=== PATIENT | male | born 2000 | race Caucasian/White ===

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

== ENCOUNTER 2022-02-25 12:50 | Emergency (ER) | payer OTHER, SELFPAY ==
[2022-02-25 14:50] VITALS: BP 121/71; PULSE 79; RESP 19; TEMP 36.7; O2SAT 98; BMI 27.8
--- NOTE | 2022-02-25 15:07 | EXP.UTC ---
Discharge Plan Disposition Patient Disposition: Home, Self-Care Condition: Good Prescriptions Prescriptions: New ondansetron 4 mg Tablet,Disintegrating 4 mg PO Q8H PRN (Reason: Nausea) Qty: 20 0RF pseudoephedrine HCl [Sudafed 12 Hour] 120 mg tablet extended release 120 mg PO Q12H PRN (Reason: nasal congestion) Qty: 14 0RF Referrals Follow up/Referrals: Chano Kidd MD [Primary Care Provider] - See instructions Activity Restrictions/Add. Instructions Additional Instructions/Restrictions: *Monitor Temp, Over the counter Motrin or Tylenol as directed/as needed Tylenol every 4 hours and Motrin every 6 hours (as long as your family doctor has told you that you can take it) for fever or pain. and straight to ER if unable to lower temp less than 101.0 after medication given *Warm salt water gargles may help to soothe the throat *Throat Lozenges? *Warm fluids like tea with honey may help to soothe the throat? *Sleep elevated *Humidifier/Vaporizer Follow up IMMEDIATELY for new or worsening symptoms or no Noticeable improvement over the next 48-72 hours. 911 for difficulty breathing or swallowing You were tested for today for COVID19 your test result should be back in the next 24-48 hours, you may check your results on the [facility] [facility] Portal Clinical Impressions Clinical Impression: Viral syndrome Stand Alone Forms Stand Alone Forms: Work/School Release Instructions Patient Instructions: DI for Viral Syndrome [place]charge [place] oLve Jimé[place] [facility] [place] General Stated complaint: stomach pain, diarrhea Mode of Arrival: Ambulatory Source of Information: Patient Limitations: No Limitations Time Seen by Provider: 02/25/22 15:07 Description of Symptoms (Recalled from Triage Doc. by RN): PATIENT C/O STOMACH ACHE, DIARRHEA, VOMITING AND BODY ACHES X 2 DAYS HEENT Symptoms (Recalled from RN notes): Yes Resp Symptoms (Recalled from RN notes): No Skin Symptoms (Recalled from RN notes): No MS Symptoms (Recalled from RN notes): No Functional Status (Recalled from RN notes): WNL History of Present Illness Provider Complaint: Patient state that she has been having body aches, chills, for the last 2-3 days and upset stomach, vomiting and diarrhea that started today State that sister was positive for the flu last week and his dad was sick with Rhino State that he is not sure if he may have one of those or not Related Data Previous Rx's Medication Instructions Recorded ondansetron 4 mg disintegrating 4 mg PO Q8H PRN Nausea #20 tabs 02/25/22 tablet pseudoephedrine HCl 120 mg 120 mg PO Q12H PRN nasal 02/25/22 tablet,extended release (Sudafed congestion #14 tabs 12 Hour) Allergies Allergy/AdvReac Type Severity Reaction Status Date / Time Penicillins Allergy Verified 06/27/18 08:10 Worker's Comp Is this a Worker's Comp case?: No PFSH PFSH Surgical History (Updated 02/25/22 @ 14:56 by oSha Terrell, RN) History of appendectomy Social History (Updated 02/25/22 @ 14:56 by Soha Terrell RN) Smoking Status: Unknown if ever smoked alcohol intake: never counseling provided: provider counseling substance use type: denies use current occupational status: student Travel in the last 8 weeks: None household members: family housing: house caffeine: No ROS Obtained: Yes All systems reviewed & no additional complaints except as documented and Yes Systems reviewed as appropriate & no additional complaints except as documented Constitutional Constitutional: Reports system reviewed and no additional complaints, except as documented, Reports as per HPI, Denies fever(s) and Reports headache(s) ENT Ears, Nose, Mouth, and Throat: Reports system reviewed and no additional complaints, except as documented, Reports as per HPI, Reports headache(s), Reports nasal congestion and Reports nasal discharge Cardiovascular Cardiovascular: Reports system reviewed and
[2022-02-25 15:10] LABS: UTC Influenza A Antigen Negative (Negative); UTC Influenza B Antigen Negative (Negative)
[2022-02-25 15:33] VITALS: BP 121/71; PULSE 79; RESP 19; TEMP 36.7; O2SAT 98
[2022-02-25 15:48] LABS: Adenovirus,PCR Not Detected (NotDetected); Bordetella Pertussis Not Detected (NotDetected); Chlamydophila Pneumoniae, PCR Not Detected (NotDetected); Coronavirus 19, PCR Not Detected (NotDetected); Coronavirus 229E Not Detected (NotDetected); Coronavirus NL63 Not Detected (NotDetected); Coronavirus OC43 Not Detected (NotDetected); Coronovirus HKU1,PCR Not Detected (NotDetected); Human Metapneumovirus Not Detected (NotDetected); Influenza A, PCR Not Detected (NotDetected); Influenza AH1, 2009 Not Detected (NotDetected); Influenza AH1, PCR Not Detected (NotDetected); Influenza AH3,PCR Not Detected (NotDetected); Influenza B, PCR Not Detected (NotDetected); Mycoplasma Pneumoniae, PCR Not Detected (NotDetected); Parainfluenza 1, PCR Not Detected (NotDetected); Parainfluenza 2, PCR Not Detected (NotDetected); Parainfluenza 3, PCR Not Detected (NotDetected); Parainfluenza 4, PCR Not Detected (NotDetected); Respiratory Syncytial Virus Not Detected (NotDetected); Rhinovirus/Enterovirus Not Detected (NotDetected)
== END 2022-02-25 15:39 | disposition home or self-care (01) ==
PROVIDERS: Emergency Provider Nurse Practitioner; PCP Family Medicine
DX: R10.9 Unspecified abdominal pain (principal); R19.7 Diarrhea, unspecified; B34.9 Viral infection, unspecified
CPT/HCPCS: 87581; 87632; 87798; 87804; 99212; C9803; G0463; U0003; U0005

== ENCOUNTER 2022-03-14 12:33 | Emergency (ER) | payer OTHER, SELFPAY ==
--- NOTE | 2022-03-14 14:35 | EXP.UTC ---
Discharge Plan Disposition Patient Disposition: Home, Self-Care Condition: Good Prescriptions Prescriptions: New benzonatate [benzonatate] 100 mg capsule 100 mg PO TIDP PRN (Reason: Cough) Qty: 30 0RF ondansetron 4 mg Tablet,Disintegrating 4 mg PO Q8H PRN (Reason: Nausea) Qty: 12 0RF No Action ondansetron 4 mg Tablet,Disintegrating 4 mg PO Q8H PRN (Reason: Nausea) Qty: 20 0RF pseudoephedrine HCl [Sudafed 12 Hour] 120 mg tablet extended release 120 mg PO Q12H PRN (Reason: nasal congestion) Qty: 14 0RF Referrals Follow up/Referrals: Prosper Perez MD [Primary Care Provider] - See instructions Activity Restrictions/Add. Instructions Additional Instructions/Restrictions: Drink plenty of fluids. Take tylenol or ibuprofen for pain or fever. Take the medications as directed. Follow up with your regular doctor. GO TO THE ER FOR ANY WORSENING SYMPTOMS Clinical Impressions Clinical Impression: Viral syndrome, Exposure to COVID-19 virus Stand Alone Forms Stand Alone Forms: Work/School Release Instructions Patient Instructions: Coronavirus Disease 2019, Preventing the Spread of Coronavirus Discharge Instructions Discharge ED Provider: Luis Antonio Basurto [facility] General Stated complaint: covid test Time Seen by Provider: 03/14/22 14:35 History of Present Illness Provider Complaint: He states that for the past 2 days he has had body aches, chills, cough and he has felt bad. Related Data Previous Rx's Medication Instructions Recorded ondansetron 4 mg disintegrating 4 mg PO Q8H PRN Nausea #20 tabs 02/25/22 tablet pseudoephedrine HCl 120 mg 120 mg PO Q12H PRN nasal 02/25/22 tablet,extended release (Sudafed congestion #14 tabs 12 Hour) benzonatate 100 mg capsule 100 mg PO TIDP PRN Cough #30 caps 03/14/22 ondansetron 4 mg disintegrating 4 mg PO Q8H PRN Nausea #12 tabs 03/14/22 tablet Allergies Allergy/AdvReac Type Severity Reaction Status Date / Time Penicillins Allergy Verified 03/14/22 14:47 PFSH PFSH Surgical History History of appendectomy Social History Smoking Status: Unknown if ever smoked alcohol intake: never counseling provided: provider counseling substance use type: denies use current occupational status: student Travel in the last 8 weeks: None household members: family housing: house caffeine: No ROS Obtained: Yes All systems reviewed & no additional complaints except as documented Constitutional Constitutional: Reports chills and Reports fever(s) Eyes Eyes: Denies eye discharge ENT Ears, Nose, Mouth, and Throat: Reports as per HPI Cardiovascular Cardiovascular: Denies chest pain Respiratory Respiratory: Denies chest congestion and Reports cough Gastrointestinal Gastrointestingal: Reports nausea; Denies abdominal pain, constipation, cramping, diarrhea or vomiting Musculoskeletal Musculoskeletal: Denies arthralgias Integumentary/Breasts Skin/Breast: Denies rash Neurologic Neurologic: Denies paresthesias Physical Exam General General appearance: alert and in no apparent distress Head Head exam: atraumatic, normocephalic and normal inspection Eye Eye exam: Present normal appearance, PERRL and EOMI ENT ENT exam: Present normal exam, normal oropharynx, mucous membranes moist, TM's normal bilaterally and normal external ear exam Neck Neck exam: Present normal inspection, full ROM and trachea midline; Absent meningismus or lymphadenopathy Chest Chest inspection: Present normal inspection and symmetric chest wall rise; Absent tenderness Respiratory Respiratory exam: Present normal lung sounds bilaterally; Absent respiratory distress Cardiovascular Cardiovascular exam: Present regular rate and normal rhythm; Absent JVD Abdominal Exam Abdominal exam: Present soft and normal bowel sounds; Absent distention, tenderness or
[2022-03-14 14:54] LABS: UTC Strep Screen (Rapid) Negative (Negative)
[2022-03-14 15:04] VITALS: BP 152/84; PULSE 75; RESP 16; TEMP 36.6; O2SAT 98; BMI 29.5
[2022-03-14 15:47] LABS: UTC Influenza A Antigen Negative (Negative); UTC Influenza B Antigen Negative (Negative)
[2022-03-14 15:59] VITALS: BP 152/84; PULSE 75; RESP 16; TEMP 36.6
== END 2022-03-14 15:59 | disposition home or self-care (01) ==
PROVIDERS: Emergency Provider Nurse Practitioner Family; PCP Family Medicine
DX: B34.9 Viral infection, unspecified (principal)
CPT/HCPCS: 99212; 87804; 87880; C9803; U0003; U0005

== ENCOUNTER 2022-12-13 08:16 | Emergency (ER) | payer OTHER, SELFPAY ==
[2022-12-13 08:17] VITALS: BP 132/75; PULSE 81; RESP 18; TEMP 37.1; O2SAT 98; BMI 30.2
--- NOTE | 2022-12-13 08:42 | EXP.UTC ---
Discharge Plan Disposition Patient Disposition: Home, Self-Care Condition: Good Prescriptions Prescriptions: New benzonatate 100 mg capsule 100 mg PO TID PRN (Reason: cough) Qty: 30 0RF azithromycin [Zithromax Z-Aram] 250 mg tablet See Rx Instructions .ROUTE .COMPLEX 5 Days Qty: 6 0RF Rx Instructions: For 250 mg dose pack: take 500 mg today (day 1), then 250 mg for 4 days (days 2-5) ondansetron 4 mg tablet,disintegrating 4 mg PO Q8H PRN (Reason: nausea and vomiting) Qty: 10 0RF guaifenesin [Mucinex] 600 mg tablet extended release 12hr 1,200 mg PO BID PRN (Reason: cough) Qty: 20 0RF Rx Instructions: Take during the day for your cough No Action ondansetron 4 mg Tablet,Disintegrating 4 mg PO Q8H PRN (Reason: Nausea) Qty: 20 0RF pseudoephedrine HCl [Sudafed 12 Hour] 120 mg tablet extended release 120 mg PO Q12H PRN (Reason: nasal congestion) Qty: 14 0RF benzonatate [benzonatate] 100 mg capsule 100 mg PO TIDP PRN (Reason: Cough) Qty: 30 0RF ondansetron 4 mg Tablet,Disintegrating 4 mg PO Q8H PRN (Reason: Nausea) Qty: 12 0RF Referrals Follow up/Referrals: Prosper Perez MD [Primary Care Provider] - See instructions Activity Restrictions/Add. Instructions Additional Instructions/Restrictions: *Monitor Temp, Over the counter Motrin or Tylenol as directed/as needed Tylenol every 4 hours and Motrin every 6 hours (as long as your family doctor has told you that you can take it) for fever or pain. and straight to ER if unable to lower temp less than 101.0 after medication given *Warm salt water gargles may help to soothe the throat *Throat Lozenges? *Warm fluids like tea with honey may help to soothe the throat? *Sleep elevated *Humidifier/Vaporizer Follow up IMMEDIATELY for new or worsening symptoms or no Noticeable improvement over the next 48-72 hours. 911 for difficulty breathing or swallowing You were tested for today for COVID19 your test result should be back in the next 24-48 hours, you may check your results on the [facility] My Health Portal Clinical Impressions Clinical Impression: URI (upper respiratory infection) Qualifiers: URI type: unspecified URI Qualified Code(s): J06.9 - Acute upper respiratory infection, unspecified Stand Alone Forms Stand Alone Forms: Work/School Release Instructions Patient Instructions: Sore Throat, DI for Sinusitis, DI for COVID-19 (Suspected or Confirmed ) Discharge ED Provider: Love Jiménez [facility] [place] HPI General Stated complaint: covid exposure Mode of Arrival: Ambulatory Source of Information: Patient Limitations: No Limitations Time Seen by Provider: 12/13/22 08:42 Description of Symptoms (Recalled from Triage Doc. by RN): Patient reports no smell or taste, vomiting and cough since Sunday. States he was exposed by his father and needs a COVID test. HEENT Symptoms (Recalled from RN notes): Yes Resp Symptoms (Recalled from RN notes): No Skin Symptoms (Recalled from RN notes): No MS Symptoms (Recalled from RN notes): No Functional Status (Recalled from RN notes): wnl History of Present Illness Provider Complaint: States that he was recently exposed to COVID by his father that was positive States that he wanted to get tested due to he started feeling ill on Sunday not sure if he may have COVID or something else States that he has been having cough, chest congestion and coughing up mucous at times States thats that today he was feeling worse and couldnt smell or taste anything but not sure if that is from COVID or all the head congestion Related Data Previous Rx's Medication Instructions Recorded ondansetron 4 mg disintegrating 4 mg PO Q8H PRN Nausea #20 tabs 02/25/22 tablet pseudoephedrine HCl 120 mg 120 mg PO Q12H PRN nasal 02/25/22 tablet,extended release (Sudafed congestion #14 tabs 12 Hour) benzonatate 100 mg capsule 100 mg PO TIDP PRN Cough #30 caps 03/14/22 ondansetron
[2022-12-13 09:13] VITALS: BP 132/75; PULSE 81; RESP 18; TEMP 37.1; O2SAT 98
== END 2022-12-13 09:14 | disposition home or self-care (01) ==
PROVIDERS: Emergency Provider Nurse Practitioner; PCP Family Medicine
DX: J06.9 Acute upper respiratory infection, unspecified (principal); R05.9 Cough, unspecified
CPT/HCPCS: 99212; 99214; G0463

== ENCOUNTER 2023-01-30 08:38 | Emergency (ER) | payer OTHER, SELFPAY ==
--- NOTE | 2023-01-30 08:35 | ECG_ITS ---
APPROVED REPORT Exam: Resting ECG HR:75 bpm ECG Measurements Heart Rate 75 AXES NH 134 P 24 QRSd 97 QRS 88 QT 350 T 40 QTc 379 Conclusion SINUS RHYTHM NORMAL ECG UNCONFIRMED REPORT Electronically signed by : Javier Urbina MD 01/30/2023 19:23:01
[2023-01-30 08:38] VITALS: BP 132/70; PULSE 81; RESP 20; TEMP 36.8; O2SAT 99; BMI 28.7
[2023-01-30 08:40] VITALS: BMI 28.7
--- NOTE | 2023-01-30 08:41 | XR_ITS ---
FINAL REPORT CLINICAL HISTORY: R sided chest pain, congestion, cough FINDINGS: The heart size is normal. The mediastinum is within normal limits. There is no acute cardiopulmonary process. There is no pleural effusion. There is no pneumothorax. The bony thorax is intact. IMPRESSION: No acute cardiopulmonary process. Reviewed, Interpreted and Dictated by Chente Holguin III, MD Transcribed by Nilesh Senior Authenticated and [facility]
[2023-01-30 08:56] LABS: Basophils # 0.1 K/mm3 (0-0.2); Basophils % 0.8 % (0.1-2.0); Eosinophils # 0.5 K/mm3 (0.0-0.4); Eosinophils % 4.3 % (0.1-12.0); Hematocrit 47.3 % (42.0-52.0); Hemoglobin 16.8 g/dL (14.1-18.0); Lymphocytes # 3.8 K/mm3 (0.7-4.5); Lymphocytes % 30.2 % (10-50); Mean Corpuscular HGB Conc 35.6 g/dL (31.8-35.4); Mean Corpuscular Hemoglobin 31.7 pg (27.0-31.2); Mean Corpuscular Volume 89.1 fl (80-94); Mean Platelet Volume 8.6 fl (7.4-10.4); Monocytes # 1.7 K/mm3 (0.1-1.0); Monocytes % 13.2 % (1.7-9.3); Neutrophils # 6.5 K/mm3 (1.8-7.8); Neutrophils % 51.6 % (37.0-80.0); Platelet Count 208 K/mm3 (142-424); Red Blood Count 5.31 M/mm3 (4.60-6.20); White Blood Count 12.6 K/mm3 (4.5-13.0)
[2023-01-30 09:00] VITALS: BP 132/70; PULSE 65; RESP 13; O2SAT 98
[2023-01-30 09:15] LABS: Chloride 105 mmol/L (98-107); Sodium 140 mmol/L (136-145)
[2023-01-30 09:16] LABS: Potassium 3.7 mmoL/L (3.5-5.1)
[2023-01-30 09:18] LABS: Alanine Aminotransferase 26 U/L (12-78); Alkaline Phosphatase 85 U/L (38-126); Anion Gap 13.7 mEq/L (5-15); Aspartate Amino Transferase 35 U/L (17-59); Bilirubin,Total 0.4 mg/dl (0.2-1.3); Blood Urea Nitrogen 9 mg/dl (9-20); Carbon Dioxide 25 mmol/L (22.0-30.0); Creatinine Clearance Estimated 216 mL/min (50-200); Estimated Glomerular Filt Rate 144 ml/min (>60); GFR (African American) 174 ML/MIN (>60)
[2023-01-30 09:19] LABS: Albumin Level 4.6 g/dl (3.5-5.0); Albumin/Globulin Ratio 1.5 (1.1-1.8); Glucose 92 mg/dl (74-100); Total Protein,Serum 7.6 g/dl (6.3-8.2)
--- NOTE | 2023-01-30 09:25 | HMH.EDGENADL ---
Discharge Plan Disposition Patient Disposition: Home, Self-Care Prescriptions Prescriptions: New benzonatate 100 mg capsule 100 mg PO TID PRN (Reason: cough) 5 Days Qty: 20 0RF ibuprofen 800 mg tablet 800 mg PO TID PRN (Reason: pain) 7 Days Qty: 20 0RF pseudoephedrine HCl 120 mg tablet extended release 120 mg PO BID PRN (Reason: nasal congestion) 7 Days Qty: 14 0RF No Action ondansetron 4 mg Tablet,Disintegrating 4 mg PO Q8H PRN (Reason: Nausea) Qty: 20 0RF pseudoephedrine HCl [Sudafed 12 Hour] 120 mg tablet extended release 120 mg PO Q12H PRN (Reason: nasal congestion) Qty: 14 0RF benzonatate [benzonatate] 100 mg capsule 100 mg PO TIDP PRN (Reason: Cough) Qty: 30 0RF ondansetron 4 mg Tablet,Disintegrating 4 mg PO Q8H PRN (Reason: Nausea) Qty: 12 0RF benzonatate 100 mg capsule 100 mg PO TID PRN (Reason: cough) Qty: 30 0RF azithromycin [Zithromax Z-Aram] 250 mg tablet See Rx Instructions .ROUTE .COMPLEX 5 Days Qty: 6 0RF Rx Instructions: For 250 mg dose pack: take 500 mg today (day 1), then 250 mg for 4 days (days 2-5) ondansetron 4 mg tablet,disintegrating 4 mg PO Q8H PRN (Reason: nausea and vomiting) Qty: 10 0RF guaifenesin [Mucinex] 600 mg tablet extended release 12hr 1,200 mg PO BID PRN (Reason: cough) Qty: 20 0RF Rx Instructions: Take during the day for your cough Referrals Follow up/Referrals: Prosper Perez MD [Primary Care Provider] - See instructions Activity Restrictions/Add. Instructions Additional Instructions/Restrictions: Turn with any worsening symptoms specifically respiratory distress high fevers that will not break with Tylenol or ibuprofen or other concerns. Clinical Impressions Clinical Impression: URI (upper respiratory infection), Chest wall pain Stand Alone Forms Stand Alone Forms: Work/School Release Discharge ED Provider: Jen Moe General Adult HPI General Chief complaint: Chest Pain Stated complaint: Chest Pain Time Seen by Provider: 01/30/23 09:18 Mode of Arrival: EMS Source of Information: Patient Limitations: No Limitations Description of Symptoms (Recalled from ER Triage Doc. by RN): Pt c/o R sided chest pain, chest congestion, body aches, and exertional SOA. Stae\keturah his symtoms began this weekend and he was trying to work this morning but the pain worsened. Denies any productive cough. Denies fever. Denies n/v/d. History of Present Illness HPI narrative: Patient is a 22-year-old male presenting today with several days of nasal congestion rhinorrhea cough body aches now with right lateral chest wall pain. States this hurts when he coughs also when he lifts anything. No fevers or chills no past medical problems from historical standpoint. Related Data Previous Rx's Medication Instructions Recorded ondansetron 4 mg disintegrating 4 mg PO Q8H PRN Nausea #20 tabs 02/25/22 tablet pseudoephedrine HCl 120 mg 120 mg PO Q12H PRN nasal 02/25/22 tablet,extended release (Sudafed congestion #14 tabs 12 Hour) benzonatate 100 mg capsule 100 mg PO TIDP PRN Cough #30 caps 03/14/22 ondansetron 4 mg disintegrating 4 mg PO Q8H PRN Nausea #12 tabs 03/14/22 tablet azithromycin 250 mg tablet See Rx Instructions PO .COMPLEX 5 12/13/22 (Zithromax Z-Aram) days #6 tabs benzonatate 100 mg capsule 100 mg PO TID PRN cough #30 caps 12/13/22 guaifenesin 600 mg tablet, 1,200 mg PO BID PRN cough #20 tabs 12/13/22 extended release 12 hr (Mucinex) ondansetron 4 mg disintegrating 4 mg PO Q8H PRN nausea and 12/13/22 tablet vomiting #10 tabs benzonatate 100 mg capsule 100 mg PO TID PRN cough 5 days #20 01/30/23 caps ibuprofen 800 mg tablet 800 mg PO TID PRN pain 7 days #20 01/30/23 tabs pseudoephedrine HCl 120 mg 120 mg PO BID PRN nasal congestion 01/30/23 tablet,extended release 7 days #14 tabs Allergies Allergy/AdvReac Type Severity Reaction Status Date / Time Penicillins Allergy Verified 03/14/22 14:47
[2023-01-30 09:30] VITALS: BP 118/71; PULSE 83; RESP 12; O2SAT 98
[2023-01-30 09:34] LABS: Troponin I < 0.01 ng/ml (0.00-0.034)
[2023-01-30 10:00] VITALS: BP 132/71; PULSE 76; RESP 14; O2SAT 95
--- NOTE | 2023-01-30 10:05 | PC.NURSE ---
Dr. Moe at [facility] to update pt on results and POC
[2023-01-30 10:17] VITALS: BP 132/71; PULSE 73; RESP 12; TEMP 36.6; O2SAT 98
== END 2023-01-30 10:18 | disposition home or self-care (01) ==
PROVIDERS: Emergency Provider Student in an Organized Health Care Education/Training Program; PCP Family Medicine
DX: R07.9 Chest pain, unspecified (principal); J06.9 Acute upper respiratory infection, unspecified; F17.290 Nicotine dependence, other tobacco product, uncomplicated
CPT/HCPCS: 71045; 80053; 84484; 85025; 93005; 96361; 96374; 99284

== ENCOUNTER → 2023-03-29 23:12 | Outpatient (CLI) | payer OTHER, SELFPAY ==
[2023-03-29 17:58] LABS: Adenovirus,PCR Not Detected (NotDetected); Coronavirus 19, PCR Not Detected (NotDetected); Coronavirus 229E Not Detected (NotDetected); Coronavirus NL63 Not Detected (NotDetected); Coronavirus OC43 Not Detected (NotDetected); Coronovirus HKU1,PCR Not Detected (NotDetected); Human Metapneumovirus Not Detected (NotDetected); Influenza A, PCR Not Detected (NotDetected); Influenza AH1, 2009 Not Detected (NotDetected); Influenza AH1, PCR Not Detected (NotDetected); Influenza AH3,PCR Not Detected (NotDetected); Influenza B, PCR Not Detected (NotDetected); Parainfluenza 1, PCR Not Detected (NotDetected); Parainfluenza 2, PCR Not Detected (NotDetected); Parainfluenza 3, PCR Not Detected (NotDetected); Parainfluenza 4, PCR Not Detected (NotDetected); Respiratory Syncytial Virus Not Detected (NotDetected)
[2023-03-29 20:33] LABS: Rhinovirus/Enterovirus Detected (NotDetected)
== END ==
PROVIDERS: PCP Student in an Organized Health Care Education/Training Program; Visit Provider Student in an Organized Health Care Education/Training Program
DX: R05.9 Cough, unspecified (principal); B34.1 Enterovirus infection, unspecified
CPT/HCPCS: 87632; 87635

== ENCOUNTER 2023-04-02 08:55 | Emergency (ER) | payer OTHER, SELFPAY ==
--- NOTE | 2023-04-02 08:52 | ECG_ITS ---
APPROVED REPORT Exam: Resting ECG HR:81 bpm ECG Measurements Heart Rate 81 AXES ME 130 P 67 QRSd 94 QRS 91 QT 350 T 21 QTc 388 Conclusion SINUS RHYTHM WITH SINUS ARRHYTHMIA POSSIBLE LEFT ATRIAL ENLARGEMENT [-0.1mV P-WAVE IN V1/V2] BORDERLINE RIGHT AXIS DEVIATION [QRS AXIS > 90] NONSPECIFIC T-WAVE ABNORMALITY BORDERLINE ECG UNCONFIRMED REPORT Electronically signed by : Javier Urbina MD 04/02/2023 14:44:36
[2023-04-02 08:56] VITALS: BP 143/88; PULSE 76; RESP 18; TEMP 36.8; O2SAT 97; BMI 32.6
--- NOTE | 2023-04-02 09:01 | XR_ITS ---
FINAL REPORT TECHNIQUE: Chest PA & Lateral CLINICAL HISTORY: cough, shortness of breath, wheezing, R>L ronchi COMPARISON: 01/30/2023 FINDINGS: 2 views of the chest were performed. The heart size is normal. The mediastinum is within normal limits. There is no acute cardiopulmonary process. There are no pleural effusions. There is no pneumothorax. The bony thorax appears intact. IMPRESSION: No acute cardiopulmonary process. Reviewed, Interpreted and Dictated by Gerardo Real MD Transcribed by Yaima Escoto Authenticated and . [facility]
[2023-04-02 09:02] VITALS: PULSE 76
--- NOTE | 2023-04-02 09:04 | HMH.EDGENADL ---
Discharge Plan Disposition Patient Disposition: Home, Self-Care Condition: Good Prescriptions Prescriptions: No Action [id number]-[id number] 2-30-10 mg/5 mL syrup 5 ml PO doxycycline hyclate 100 mg capsule 100 mg PO albuterol sulfate 90 mcg/actuation HFA aerosol inhaler 1 inh inhalation QID Qty: 6.7 2RF prednisone 20 mg tablet 20 mg PO BID Qty: 10 0RF guaifenesin 600 mg tablet extended release 12hr 600 mg PO Q12H PRN (Reason: congestion) Qty: 10 0RF Referrals Follow up/Referrals: Tyrone Perez MD [Primary Care Provider] - See instructions Activity Restrictions/Add. Instructions Additional Instructions/Restrictions: You were evaluated in the emergency department today. Please continue taking your steroids and antibiotics at home. Complete the full courses. Use your inhaler at home every 4 hours. Follow-up with your primary care provider over the next 3 days. Return to the emergency department for new or worsening symptoms Clinical Impressions Clinical Impression: Viral pneumonia, Asthma exacerbation Stand Alone Forms Stand Alone Forms: Work/School Release Instructions Patient Instructions: DI for Asthma -- Adult, DI for Viral Upper Respiratory Infection -- Adult, DI for Atypical Chest Pain Discharge ED Provider: Shahida Benito General Adult HPI General Chief complaint: Chest Pain Stated complaint: Chest Pain Time Seen by Provider: 04/02/23 09:00 Mode of Arrival: Ambulatory Source of Information: Patient Limitations: No Limitations Description of Symptoms (Recalled from ER Triage Doc. by RN): pt reports substernal chest pain and shortnes of breath for 1 week, states he went to the dr and was dx with bronchitis, also reports chills, body aches, and a productive cough, denies fever History of Present Illness HPI narrative: This patient is a 23-year-old male who denies significant past medical history presenting to the emergency department for evaluation with concern for continued cough, chest pain, and shortness of breath that is worsened over the last 2 weeks. He states that he was diagnosed with bronchitis at his PCP and prescribed antibiotics, and then he was seen in clinic and was given a prescription for an inhaler and steroids. On medical record review, he is currently on doxycycline, albuterol inhaler, and prednisone. He states that despite taking these, he continues to have worsening symptoms and has significant dyspnea on exertion. He also has a harsh, dry barking cough. No other concerns noted at this time. Related Data Home Medications Medication Instructions Recorded Confirmed nkxtcllajketyui-[id number]-[id number] 5 ml PO 03/29/23 03/29/23 2 mg-30 mg-10 mg/5 mL oral syrup doxycycline hyclate 100 mg capsule 100 mg PO 03/29/23 03/29/23 Previous Rx's Medication Instructions Recorded albuterol sulfate 90 mcg/actuation 1 inh inhalation QID #6.7 grams 03/29/23 aerosol inhaler guaifenesin 600 mg tablet, 600 mg PO Q12H PRN congestion #10 03/29/23 extended release 12 hr tabs prednisone 20 mg tablet 20 mg PO BID #10 tabs 03/29/23 Allergies Allergy/AdvReac Type Severity Reaction Status Date / Time Penicillins Allergy Verified 04/02/23 09:03 [facility] Disclaimer: The information contained in this section may have been updated after the patient was seen, as this information can be updated by other users. Medical History High ankle sprain of left lower extremity Surgical History Acute appendicitis History of appendectomy Family History Other No significant family history Social History Smoking Status: Current every day smoker tobacco type: smokeless tobacco alcohol intake: never counseling provided: provider counseling
[2023-04-02 09:14] LABS: Chloride 105 mmol/L (98-107); Potassium 3.7 mmoL/L (3.5-5.1); Sodium 141 mmol/L (136-145)
[2023-04-02 09:15] LABS: Basophils % 0.2 % (0.1-2.0); Eosinophils # 0.3 K/mm3 (0.0-0.4); Eosinophils % 1.6 % (0.1-12.0); Hematocrit 46.9 % (42.0-52.0); Hemoglobin 16.4 g/dL (14.1-18.0); Lymphocytes # 4.7 K/mm3 (0.7-4.5); Lymphocytes % 28.8 % (10-50); Mean Corpuscular HGB Conc 35.1 g/dL (31.8-35.4); Mean Corpuscular Hemoglobin 31.1 pg (27.0-31.2); Mean Corpuscular Volume 88.8 fl (80-94); Mean Platelet Volume 7.3 fl (7.4-10.4); Monocytes % 6.1 % (1.7-9.3); Neutrophils # 10.4 K/mm3 (1.8-7.8); Neutrophils % 63.3 % (37.0-80.0); Platelet Count 265 K/mm3 (142-424); Red Blood Count 5.28 M/mm3 (4.60-6.20); Red Cell Distribution Width 13.4 % (11.5-17.5); White Blood Count 16.5 K/mm3 (4.8-10.8)
[2023-04-02 09:16] LABS: Alanine Aminotransferase 20 U/L (12-78); Alkaline Phosphatase 104 U/L (38-126); Aspartate Amino Transferase 25 U/L (17-59); Bilirubin,Total 0.5 mg/dl (0.2-1.3); Blood Urea Nitrogen 14 mg/dl (9-20); Creatinine Clearance Estimated 230 mL/min (50-200); Estimated Glomerular Filt Rate 142 ml/min (>60); GFR (African American) 172 ML/MIN (>60)
[2023-04-02 09:17] LABS: Albumin Level 4.9 g/dl (3.5-5.0); Albumin/Globulin Ratio 1.6 (1.1-1.8); Anion Gap 15.7 mEq/L (5-15); Calcium 8.8 mg/dl (8.4-10.2); Carbon Dioxide 24 mmol/L (22.0-30.0); Globulin 3.1 g/dL (1.3-3.2); Glucose 101 mg/dl (74-100)
[2023-04-02 09:31] LABS: Troponin I < 0.01 ng/ml (0.00-0.034)
[2023-04-02 09:34] LABS: Coronavirus 19, PCR Not Detected (NotDetected); Influenza A, PCR Not Detected (NotDetected); Influenza B, PCR Not Detected (NotDetected); MANUAL DIFFERENTIAL MANUAL DIFFERENTIAL (MANUAL DIFF)
[2023-04-02 09:58] LABS: D-Dimer 0.44 ug/mL (0.0-0.5)
[2023-04-02 10:00] VITALS: BP 143/65; PULSE 933; RESP 10
--- NOTE | 2023-04-02 10:11 | PC.NURSE ---
pt resting in bed. call light within reach. bed in lowest position. updated pt on care. no questions or concerns voiced.
[2023-04-02 10:13] LABS: Eosinophils % 2 % (0-3); Lymphocytes % 30 % (10-50); Monocytes % 4 % (2-9); Neutrophils % 63 % (42-76); Platelet Estimate Normal; RBC Morphology Normal; Total Cells Counted 100
[2023-04-02 10:42] VITALS: BP 120/65; PULSE 85; RESP 17; TEMP 36.7; O2SAT 98
== END 2023-04-02 10:56 | disposition home or self-care (01) ==
PROVIDERS: Emergency Provider Emergency Medicine; PCP Psychiatry & Neurology Sleep Medicine
DX: J12.9 Viral pneumonia, unspecified (principal); J45.901 Unspecified asthma with (acute) exacerbation; R07.9 Chest pain, unspecified; R06.02 Shortness of breath; F17.290 Nicotine dependence, other tobacco product, uncomplicated; I49.9 Cardiac arrhythmia, unspecified
CPT/HCPCS: 71046; 80053; 84484; 85007; 85025; 85378; 87636; 93005; 96361; 96374; 96375; 99285; J0131

== ENCOUNTER 2023-04-17 16:24 | Emergency (ER) | payer OTHER, SELFPAY ==
[2023-04-17 18:10] VITALS: BP 139/74; PULSE 99; RESP 20; TEMP 37.1; O2SAT 99; BMI 32.6
--- NOTE | 2023-04-17 18:17 | EXP.UTC ---
Discharge Plan Disposition Patient Disposition: Home, Self-Care Condition: Good Prescriptions Prescriptions: New cyclobenzaprine 10 mg tablet 10 mg PO TID PRN (Reason: muscle spasm) Qty: 12 0RF ibuprofen [IBU] 800 mg tablet 800 mg PO TIDP PRN (Reason: Moderate Pain) Qty: 20 0RF No Action albuterol sulfate 90 mcg/actuation HFA aerosol inhaler 1 inh inhalation QID Qty: 6.7 2RF fluticasone propionate [Flovent HFA] 44 mcg/actuation HFA aerosol inhaler 1 puff inhalation BID Qty: 10.6 2RF Rx Instructions: administer with spacer Referrals Follow up/Referrals: Prosper Perez MD [Primary Care Provider] - See instructions Activity Restrictions/Add. Instructions Additional Instructions/Restrictions: *Ibuprofen noam 8 hours with meal as needed for pain/inflammation *Not additional anti-inflammatory like motrin, aleve, advil with the above amount of ibuprofen. You can still take Tylenol every 4 hours as needed if you need something else for pain *Ice 20 minutes every 2 hours for the first 48 hours after the initial injury followed by moist heat every 20 minutes 3-4 times a day to affected area *Muscle relaxer every 8 hours as needed for muscle spasms but remember, it WILL cause drowsiness You cannot take it and drive, operate machinery or care for small children. *Keep this area active, no movement leads to more stiffness, However take it easy and avoid heavy lifting pushing or pulling *Follow up with you family doctor if no improvement for further treatment Follow up with Chiropractor may help with your Muscle tension Clinical Impressions Clinical Impression: Torticollis Instructions Patient Instructions: DI for Torticollis, Ibuprofen, Cyclobenzaprine Discharge ED Provider: Love Jiménez [facility] General Stated complaint: neck/left shoulder pain, no accident Time Seen by Provider: 04/17/23 18:34 History of Present Illness Provider Complaint: Patient states that he woke up a couple weeks ago with spasms and pain in the left side of his neck and shoulder and states that felt like his head sideways States that he has pain in his shoulders and the left side of his neck that goes up the left side of his head behind his ear States that today he was still having pain so he came in Denies known injury States that area feels tight and hurts when he moves it Related Data Previous Rx's Medication Instructions Recorded albuterol sulfate 90 mcg/actuation 1 inh inhalation QID #6.7 grams 03/29/23 aerosol inhaler fluticasone propionate 44 1 puff inhalation BID #10.6 grams 04/05/23 mcg/actuation HFA aerosol inhaler (Flovent HFA) cyclobenzaprine 10 mg tablet 10 mg PO TID PRN muscle spasm #12 04/17/23 tabs ibuprofen 800 mg tablet (IBU) 800 mg PO TIDP PRN Moderate Pain 04/17/23 #20 tabs Allergies Allergy/AdvReac Type Severity Reaction Status Date / Time Penicillins Allergy Verified 04/05/23 15:37 [facility] Disclaimer: The information contained in this section may have been updated after the patient was seen, as this information can be updated by other users. Medical History High ankle sprain of left lower extremity Surgical History Acute appendicitis Necrotic, suppurative and with near perforation History of appendectomy Family History Other No significant family history Social History Smoking Status: Current every day smoker tobacco type: smokeless tobacco alcohol intake: never counseling provided: provider counseling substance use type: denies use current occupational status: student Travel in the last 8 weeks: None household members: family housing: house caffeine: No ROS Obtained: Yes All systems reviewed & no additional complaints except as documented and Yes Systems reviewed as appropriate & no additional complaints except as documented Constitutional Constitutional: Reports system reviewed and no additional complaints, except as documented and Reports as per HPI ENT Ears, Nose, Mouth, and Throat: Reports system reviewed and no additional complaints, except as documented and Reports as per HPI Cardiovascular Cardiovascular: Reports system reviewed and no additional complaints, except as documented and Reports as per HPI Respiratory Respiratory: Reports system reviewed and no additional complaints, except as documented and Reports as per HPI Gastrointestinal Gastrointestingal: Reports system reviewed and no additional complaints, except as documented and as per HPI Musculoskeletal Musculoskeletal: Reports system reviewed and no additional complaints, except as documented, Reports as per HPI and Reports other Comments: Pain in left side of his neck and shoulder area after he woke up about 2 wks ago denies falling and denies known injury Physical Exam General General appearance: alert and in no apparent distress ENT ENT exam: Present mucous membranes moist Chest Chest inspection: Present normal inspection and symmetric chest wall rise; Absent tenderness Respiratory Respiratory exam: Present normal lung sounds bilaterally; Absent respiratory distress or wheezes Cardiovascular Cardiovascular exam: Present regular rate, normal rhythm and normal heart sounds Back Exam Back 1 view image: 1. reports pain and tightness with spasm with held slightly tilted, spasm palpated denies injury Neurological Exam Neurological exam: Present alert, oriented X3 and normal gait Medical Decision Making Maxim Inquiry Pt receiving controlled substance: No Maxim was queried for this patient: No
[2023-04-17 18:50] VITALS: BP 139/74; PULSE 99; RESP 20; TEMP 37.1; O2SAT 99
== END 2023-04-17 18:52 | disposition home or self-care (01) ==
PROVIDERS: Emergency Provider Nurse Practitioner; PCP Family Medicine
DX: M43.6 Torticollis (principal); M54.2 Cervicalgia; M62.838 Other muscle spasm; F17.290 Nicotine dependence, other tobacco product, uncomplicated
CPT/HCPCS: 99212; 99214; G0463

== ENCOUNTER 2023-04-21 20:14 | Emergency (ER) | payer OTHER, SELFPAY ==
[2023-04-21] VITALS (7 sets, daily range): BP systolic 131–157; BP diastolic 74–98; PULSE 73–125; RESP 8–18; TEMP 36.8–36.9; O2SAT 97–99; BMI 31.9
[2023-04-21] MEDS: KETOROLAC 30MG/ML VIAL 30 MG IV (21:01)
[2023-04-21] MEDS: ACETAMINOPHEN 500MG TAB 1000 MG PO (21:02)
[2023-04-21] MEDS: METHOCARBAMOL 500MG TABLET 500 MG PO (21:02)
[2023-04-21] MEDS: LACTATED RINGERS 1000ML 1,000 ML 999 ML IV (21:02)
[2023-04-21] MEDS: ONDANSETRON 4MG/2ML VIAL 4 MG IV (21:02)
[2023-04-21 21:06] LABS: Coronavirus 19, PCR Not Detected (NotDetected); Influenza A, PCR Not Detected (NotDetected); Influenza B, PCR Not Detected (NotDetected)
[2023-04-21 21:07] LABS: Basophils # 0.1 K/mm3 (0-0.2); Basophils % 0.7 % (0.1-2.0); Eosinophils # 0.3 K/mm3 (0.0-0.4); Eosinophils % 2.4 % (0.1-12.0); Hematocrit 49.7 % (42.0-52.0); Hemoglobin 17.6 g/dL (14.1-18.0); Lymphocytes # 3.3 K/mm3 (0.7-4.5); Lymphocytes % 28.6 % (10-50); Mean Corpuscular HGB Conc 35.3 g/dL (31.8-35.4); Mean Corpuscular Hemoglobin 31.3 pg (27.0-31.2); Mean Corpuscular Volume 88.6 fl (80-94); Mean Platelet Volume 8.5 fl (7.4-10.4); Monocytes # 0.8 K/mm3 (0.1-1.0); Neutrophils # 7.1 K/mm3 (1.8-7.8); Neutrophils % 61.2 % (37.0-80.0); Platelet Count 242 K/mm3 (142-424); Red Blood Count 5.61 M/mm3 (4.60-6.20); Red Cell Distribution Width 13.8 % (11.5-17.5); White Blood Count 11.5 K/mm3 (4.8-10.8)
[2023-04-21 21:08] LABS: Chloride 106 mmol/L (98-107); Potassium 3.6 mmoL/L (3.5-5.1); Sodium 140 mmol/L (136-145)
[2023-04-21 21:11] LABS: Alanine Aminotransferase 29 U/L (12-78); Albumin Level 4.5 g/dl (3.5-5.0); Albumin/Globulin Ratio 1.5 (1.1-1.8); Alkaline Phosphatase 79 U/L (38-126); Anion Gap 15.6 mEq/L (5-15); Aspartate Amino Transferase 31 U/L (17-59); Bilirubin,Total 0.7 mg/dl (0.2-1.3); Blood Urea Nitrogen 13 mg/dl (9-20); Calcium 8.9 mg/dl (8.4-10.2); Carbon Dioxide 22 mmol/L (22.0-30.0); Creatinine Clearance Estimated 197 mL/min (50-200); Estimated Glomerular Filt Rate 122 ml/min (>60); GFR (African American) 148 ML/MIN (>60); Glucose 127 mg/dl (74-100); Lipase 36 U/L (23-300); Total Protein,Serum 7.5 g/dl (6.3-8.2)
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
[2023-04-21 21:54] LABS: Microscopic, Urine URINE MICROSCOPIC (MICROSCOPIC)
[2023-04-21 22:04] LABS: Appearance,Urine CLOUDY (Clear); Blood, Urine Negative (Negative); Color,Urine DARK YELLOW (Yellow); Glucose,Urine (UA) Negative (Negative); Ketones,Urine TRACE (Negative); Leukocyte Esterase,Urine Negative (Negative); Nitrate,Urine POSITIVE (Negative); PH,Urine 5.5 (5.0-8.5); Protein,Urine 1+ (Negative); Specific Gravity, Urine >= 1.030 (1.005-1.030)
[2023-04-21 22:05] LABS: Bilirubin,Urine 2+ (Negative)
[2023-04-21 22:51] LABS: WBC,Urine Occasional #/hpf (0-3)
[2023-04-21 22:52] LABS: Bacteria,Urine 2+ /lpf; Squamous Epithelial Cell,Urine Occasional #/hpf (0-5)
[2023-04-21] MEDS: levoFLOXacin 750 MG TABLET PO (23:14)
[2023-04-24 22:10] LABS: Neisseria gonorrhoeae, NAA Negative (Negative)
== END 2023-04-21 23:14 | disposition home or self-care (01) ==
PROVIDERS: Emergency Provider Emergency Medicine; PCP Family Medicine
DX: N39.0 Urinary tract infection, site not specified (principal); R11.2 Nausea with vomiting, unspecified; R51.9 Headache, unspecified; R10.13 Epigastric pain; F17.290 Nicotine dependence, other tobacco product, uncomplicated
CPT/HCPCS: 80053; 81001; 83690; 85025; 87086; 87491; 87591; 87636; 96361; 96374; 96375; 99285; J2405

== ENCOUNTER 2023-05-04 10:10 | Outpatient (CLI) | payer OTHER, SELFPAY ==
[2023-05-04 10:29] LABS: Adenovirus F 40/41, stool Not Detected (NotDetected); Astrovirus Not Detected (NotDetected); Campylobacter Not Detected (NotDetected); Clostridium Difficile A/B, PCR Not Detected (NotDetected); Cryptosporidium Not Detected (NotDetected); Cyclospora Cayetanesis Not Detected (NotDetected); Entamoeba histolytica Not Detected (NotDetected); Enteroaggregative E coli Not Detected (NotDetected); Enteropathogenic E coli Not Detected (NotDetected); Enterotoxigenic E coli Not Detected (NotDetected); Giardia lamblia Not Detected (NotDetected); Norovirus Not Detected (NotDetected); Plesimonas Shigalloides, PCR Not Detected (NotDetected); Rotavirus A Not Detected (NotDetected); Salmonella, PCR Not Detected (NotDetected); Shiga-like toxin E coli Not Detected (NotDetected); Shigella Enterovasive E coli Not Detected (NotDetected); Vibrio Cholerae Not Detected (NotDetected); Vibrio, PCR Not Detected (NotDetected); Yersinia Entercolitica, PCR Not Detected (NotDetected)
[2023-05-06 06:38] LABS: Sapovirus Not Detected (NotDetected)
== END 2023-05-04 23:59 ==
LOC: LAB.DROPOF 10:11
PROVIDERS: PCP Family Medicine; Visit Provider Family Medicine
DX: R19.7 Diarrhea, unspecified (principal)
CPT/HCPCS: 87507

== ENCOUNTER 2023-05-22 18:32 | Emergency (ER) | payer OTHER, SELFPAY ==
[2023-05-22 18:34] VITALS: BP 144/82; PULSE 90; RESP 18; TEMP 36.6; O2SAT 98; BMI 29.5
--- NOTE | 2023-05-22 18:54 | PC.NURSE ---
DR HURT AT BEDSIDE
--- NOTE | 2023-05-22 18:58 | HMH.EDGENADL ---
Discharge Plan Disposition Patient Disposition: Home, Self-Care Condition: Good Prescriptions Prescriptions: New pantoprazole 40 mg tablet,delayed release (DR/EC) 40 mg PO DAILY Qty: 30 0RF ondansetron 4 mg tablet,disintegrating 4 mg PO Q8H PRN (Reason: nausea and vomiting) 4 Days Qty: 12 0RF Referrals Follow up/Referrals: Joo Garcia MD [Primary Care Provider] - See instructions Activity Restrictions/Add. Instructions Additional Instructions/Restrictions: You were evaluated in the emergency department today. Please follow-up closely with your primary care provider. family readiness support assistant your prescriptions at the pharmacy and take them as prescribed. Return to the emergency department for new or worsening symptoms. Clinical Impressions Clinical Impression: Vomiting, Gastroenteritis Instructions Patient Instructions: DI for Viral Gastroenteritis -- Adult, DI for Vomiting -- Adult, DI for Gastrointestinal Bleeding Discharge ED Provider: Shahida Benito General Adult HPI General Chief complaint: GI Bleed Stated complaint: vomitting, nauseous Time Seen by Provider: 05/22/23 18:49 Mode of Arrival: Ambulatory Source of Information: Patient Limitations: No Limitations Description of Symptoms (Recalled from ER Triage Doc. by RN): PT C/O COFFEE GROUND EMESIS THAT STARTED ABOUT 1700 TODAY. DENIES PAIN. REPORTS TAKING TYLENOL FREQUENTLY FOR A FEW WEEKS History of Present Illness HPI narrative: This patient is a 23-year-old male presenting to the emergency department for evaluation with concern for nausea and vomiting. He states that his emesis was coffee-ground. He notes that he was walking home from work after eating a peanut butter and jelly with grape jelly when he vomited what looked like black coffee-ground emesis. It cleared afterward. He has vomited about 5 times. He also notes that he has had diarrhea, but no black tarry stools, blood in his stools, or other concerns. He denies any history of GI bleeds, GERD, or heavy NSAID use. No associated abdominal pain. No other concerns noted at this time. Related Data Previous Rx's Medication Instructions Recorded ondansetron 4 mg disintegrating 4 mg PO Q8H PRN nausea and 05/22/23 tablet vomiting 4 days #12 tabs pantoprazole 40 mg tablet,delayed 40 mg PO DAILY #30 tabs 05/22/23 release Allergies Allergy/AdvReac Type Severity Reaction Status Date / Time Penicillins Allergy Verified 04/05/23 15:37 [facility] Disclaimer: The information contained in this section may have been updated after the patient was seen, as this information can be updated by other users. Medical History High ankle sprain of left lower extremity Surgical History Acute appendicitis History of appendectomy Family History Other No significant family history Social History Smoking Status: Current every day smoker tobacco type: smokeless tobacco alcohol intake: never counseling provided: provider counseling substance use type: denies use current occupational status: student Travel in the last 8 weeks: None household members: family housing: house caffeine: No ROS Obtained: Yes All systems reviewed & no additional complaints except as documented Physical Exam General General appearance: alert and in no apparent distress Head Head exam: atraumatic and normocephalic Eye Eye exam: Present normal appearance, PERRL and EOMI ENT ENT exam: Present normal exam, normal oropharynx, mucous membranes moist and normal external ear exam Neck Neck exam: Present normal inspection, full ROM and trachea midline; Absent tenderness Chest Chest inspection: Present normal inspection and symmetric chest wall rise; Absent tenderness Respiratory Respiratory exam: Present normal lung sounds bilaterally; Absent respiratory distress, wheezes, stridor or accessory muscle use Cardiovascular Cardiovascular exam: Present regular rate and normal rhythm Abdominal Exam Abdominal exam: Present soft; Absent distention, tenderness or guarding Extremities Exam Extremities exam: Present normal inspection, full ROM and normal capillary refill; Absent tenderness or edema Back Exam Back exam: Present normal inspection and full ROM; Absent tenderness Neurological Exam Neurological exam: Present alert, oriented X3, CN II-XII intact and normal gait; Absent motor sensory deficit Psychiatric Psychiatric exam: Present normal affect and normal mood Skin Skin exam: Present warm and dry Medical Decision Making Medical Records Medical records reviewed: Yes I reviewed the patient's medical records. Maxim Inquiry Pt receiving controlled substance: No Vital Signs: 05/22/23 18:34 05/22/23 19:00 05/22/23 19:20 Temperature 97.9 F Temperature Source Oral Pulse Rate 78 84 Pulse Rate [Radial] 90 Respiratory Rate 18 18 20 Blood Pressure 131/79 135/74 Blood Pressure [Left Arm] 144/82 H Blood Pressure Mean 96 94 Blood Pressure Mean [Left Arm] 102 Blood Pressure Source Blood Pressure Source [Left Arm] Automatic Cuff Blood Pressure Position [Left Arm] Sitting 02 Sat by Pulse Oximetry 98 99 97 Oxygen Delivery Method Room Air Room Air Room Air 05/22/23 20:49 Temperature 99.1 F Temperature Source Oral Pulse Rate 71 Pulse Rate [Radial] Respiratory Rate 16 Blood Pressure 140/86 Blood Pressure [Left Arm] Blood Pressure Mean Blood Pressure Mean [Left Arm] Blood Pressure Source Automatic Cuff Blood Pressure Source [Left Arm] Blood Pressure Position [Left Arm] 02 Sat by Pulse Oximetry Oxygen Delivery Method Room Air Lab Data Lab results reviewed: Yes I reviewed the patient's lab results. Lab Results 05/22/23 18:45: WBC 11.5 H, RBC 5.19, Hgb 16.0, Hct 46.8, MCV 90.3, MCH 30.9, MCHC 34.2, RDW 13.8, Plt Count 229, MPV 8.0, Neut % (Auto) 45.7, Lymph % (Auto) 41.5, [place] % (Auto) 6.3, Eos % (Auto) 5.8, Baso % (Auto) 0.7, Neut # (Auto) 5.3, Lymph # (Auto) 4.8 H, [place] # (Auto) 0.7, Eos # (Auto) 0.7 H, Baso # (Auto) 0.1, Sodium 139, Potassium 4.2, Chloride 107, Carbon Dioxide 27, Anion Gap 9.2, BUN 15, Creatinine 0.70, Estimated Creat Clear 214, Estimated GFR 142, Est GFR ( Amer) 172, Glucose 96, Calcium 8.9, Total Bilirubin 0.4, AST 26, ALT 24, Alkaline Phosphatase 70, Total Protein 7.1, Albumin 4.5, Globulin 2.6, Albumin/Globulin Ratio 1.7, Lipase 53 05/22/23 18:45 05/22/23 18:45 Orders (Tests/Meds): ED MEDICATIONS Discontinued Medications Generic Name Dose Route Start Last Admin Trade Name Freq PRN Reason Stop Dose Admin Acetaminophen 1,000 mg 05/22/23 18:56 05/22/23 19:55 Acetaminophen 1,000mg/100ml Vial IV 05/22/23 18:57 1,000 mg ONCE ONE Administration Lactated Ringer's 1,000 mls @ 999 mls/hr 05/22/23 18:56 05/22/23 19:56 Lactated Ringer's 1000 Ml Bag IV 05/22/23 19:56 999 mls/hr .Q1H1M ONE Administration Ondansetron HCl 4 mg 05/22/23 18:56 05/22/23 19:57 Ondansetron 4mg/2ml Vial IV 05/22/23 18:57 4 mg ONCE ONE Administration Pantoprazole Sodium 40 mg 05/22/23 18:56 05/22/23 19:56 Pantoprazole 40mg Tablet PO 05/22/23 18:57 40 mg ONCE ONE Administration ORDERS Category Date Time Status Complete Blood Count Auto Diff Stat Lab 05/22/23 18:45 Completed Comprehensive Metabolic Panel Stat Lab 05/22/23 18:45 Completed Lipase Stat Lab 05/22/23 18:45 Completed Medical Decision Narrative: In summary, this patient is a 23-year-old male presenting to the Emergency Department for evaluation of nausea, vomiting, and diarrhea with concern for dark emesis. Differential diagnoses considered include but are not limited to gastroenteritis, upper GI bleed, peptic ulcer disease, colitis, dehydration. Ruling out the most morbid conditions drove assessment. On exam, the patient is well-appearing with benign abdominal exam. No significant abdominal tenderness. Vitals are normal on cardiac telemetry. After dark emesis, his emesis cleared and was no longer dark. No blood in the stools. He denies any heavy NSAID use or history of GERD/GI bleeds. Is likely dark because of what he had eaten, but given cannot exclude potential upper GI bleed, patient was given a bolus of IV fluids as well as pantoprazole and Zofran. Was also given Tylenol. Workup included CBC, CMP, and lipase. On reassessment, the patient is resting comfortably with improved symptoms. He is able to tolerate oral intake without difficulty. Abdominal exam is benign. Vitals are normal on cardiac telemetry. Labs do not demonstrate any acutely concerning abnormalities. BUN is not elevated, which would suggest that a GI bleed is unlikely. He has had no recurrence of emesis while in the emergency department. Given this, feel that he is appropriate for discharge with instructions for supportive management of likely gastroenteritis. He was given prescriptions for Zofran and pantoprazole and instructions for close patient follow-up with his primary care provider for further evaluation and management. Patient was discharged in stable condition after all questions were answered. Critical Care Critical Care Time Critical Care Time: No
[2023-05-22 19:00] VITALS: BP 131/79; PULSE 78; RESP 18; O2SAT 99
[2023-05-22 19:07] LABS: Basophils # 0.1 K/mm3 (0-0.2); Basophils % 0.7 % (0.1-2.0); Chloride 107 mmol/L (98-107); Eosinophils # 0.7 K/mm3 (0.0-0.4); Eosinophils % 5.8 % (0.1-12.0); Hematocrit 46.8 % (42.0-52.0); Lymphocytes # 4.8 K/mm3 (0.7-4.5); Lymphocytes % 41.5 % (10-50); Mean Corpuscular HGB Conc 34.2 g/dL (31.8-35.4); Mean Corpuscular Hemoglobin 30.9 pg (27.0-31.2); Mean Corpuscular Volume 90.3 fl (80-94); Monocytes # 0.7 K/mm3 (0.1-1.0); Monocytes % 6.3 % (1.7-9.3); Neutrophils # 5.3 K/mm3 (1.8-7.8); Neutrophils % 45.7 % (37.0-80.0); Platelet Count 229 K/mm3 (142-424); Potassium 4.2 mmoL/L (3.5-5.1); Red Blood Count 5.19 M/mm3 (4.60-6.20); Red Cell Distribution Width 13.8 % (11.5-17.5); Sodium 139 mmol/L (136-145); White Blood Count 11.5 K/mm3 (4.8-10.8)
[2023-05-22 19:10] LABS: Alanine Aminotransferase 24 U/L (12-78); Albumin Level 4.5 g/dl (3.5-5.0); Albumin/Globulin Ratio 1.7 (1.1-1.8); Alkaline Phosphatase 70 U/L (38-126); Anion Gap 9.2 mEq/L (5-15); Aspartate Amino Transferase 26 U/L (17-59); Bilirubin,Total 0.4 mg/dl (0.2-1.3); Blood Urea Nitrogen 15 mg/dl (9-20); Calcium 8.9 mg/dl (8.4-10.2); Carbon Dioxide 27 mmol/L (22.0-30.0); Creatinine Clearance Estimated 214 mL/min (50-200); Estimated Glomerular Filt Rate 142 ml/min (>60); GFR (African American) 172 ML/MIN (>60); Globulin 2.6 g/dL (1.3-3.2); Glucose 96 mg/dl (74-100); Lipase 53 U/L (23-300); Total Protein,Serum 7.1 g/dl (6.3-8.2)
[2023-05-22 19:20] VITALS: BP 135/74; PULSE 84; RESP 20; O2SAT 97
[2023-05-22] MEDS: ACETAMINOPHEN 1,000MG/100ML VIAL 1000 MG IV (19:55)
[2023-05-22] MEDS: LACTATED RINGERS 1000ML 1,000 ML 999 ML IV (19:56)
[2023-05-22] MEDS: PANTOPRAZOLE 40MG TABLET 40 MG PO (19:56)
[2023-05-22] MEDS: ONDANSETRON 4MG/2ML VIAL 4 MG IV (19:57)
[2023-05-22 20:49] VITALS: BP 140/86; PULSE 71; RESP 16; TEMP 37.3; O2SAT 98
== END 2023-05-22 20:51 | disposition home or self-care (01) ==
PROVIDERS: Emergency Provider Emergency Medicine; PCP Family Medicine
DX: K52.9 Noninfective gastroenteritis and colitis, unspecified (principal); R11.2 Nausea with vomiting, unspecified; F17.290 Nicotine dependence, other tobacco product, uncomplicated
CPT/HCPCS: 80053; 83690; 85025; 96361; 96374; 96375; 99284; J0131; J2405

== ENCOUNTER 2023-05-24 18:06 | Emergency (ER) | payer OTHER, SELFPAY ==
[2023-05-24 18:07] VITALS: BP 165/77; PULSE 97; RESP 18; TEMP 37.1; O2SAT 100; BMI 29.5
--- NOTE | 2023-05-24 18:14 | ECG_ITS ---
APPROVED REPORT Exam: Resting ECG HR:91 bpm ECG Measurements Heart Rate 91 AXES NJ 128 P 45 QRSd 97 QRS 71 QT 337 T -6 QTc 386 Conclusion SINUS RHYTHM WITH SINUS ARRHYTHMIA NONSPECIFIC T-WAVE ABNORMALITY ABNORMAL ECG UNCONFIRMED REPORT Electronically signed by : Javier Urbina MD 05/26/2023 06:34:51
--- NOTE | 2023-05-24 18:16 | XR_ITS ---
PROCEDURE INFORMATION: Exam: XR Chest Exam date and time: 05/24/2023 6:14 PM Age: 23 years old Clinical indication: Sternal or substernal pain; Additional info: Chest pain and hurting all over TECHNIQUE: Imaging protocol: Radiologic exam of the chest. Views: 2 views. COMPARISON: CR XR CHEST 2V 04/02/2023 9:32 AM FINDINGS: Lungs: No evidence of acute pulmonary disease or infiltrates Pleural spaces: No large effusion or pneumothorax. Heart/Mediastinum: No evidence of mediastinal widening or cardiac silhouette enlargement; the mediastinum and heart appear within normal limits for contour and size. Bones/joints: No evidence of acute osseous abnormalities within the visualized portions of the thoracic spine and ribs. Osseous structures appear appropriate for patient age. IMPRESSION: No dense parenchymal consolidation, pleural effusion, or pneumothorax.
[2023-05-24 18:28] LABS: Coronavirus 19, PCR Not Detected (NotDetected); Influenza A, PCR Not Detected (NotDetected); Influenza B, PCR Not Detected (NotDetected)
[2023-05-24 18:32] LABS: Basophils # 0.1 K/mm3 (0-0.2); Basophils % 0.8 % (0.1-2.0); Eosinophils # 0.7 K/mm3 (0.0-0.4); Eosinophils % 5.3 % (0.1-12.0); Hematocrit 45.9 % (42.0-52.0); Hemoglobin 16.1 g/dL (14.1-18.0); Lymphocytes # 5.1 K/mm3 (0.7-4.5); Lymphocytes % 40.4 % (10-50); Mean Corpuscular HGB Conc 35.1 g/dL (31.8-35.4); Mean Corpuscular Hemoglobin 31.3 pg (27.0-31.2); Mean Platelet Volume 7.9 fl (7.4-10.4); Monocytes # 0.7 K/mm3 (0.1-1.0); Monocytes % 5.9 % (1.7-9.3); Neutrophils % 47.6 % (37.0-80.0); Platelet Count 223 K/mm3 (142-424); Red Blood Count 5.15 M/mm3 (4.60-6.20); White Blood Count 12.5 K/mm3 (4.8-10.8)
[2023-05-24 18:34] LABS: Alanine Aminotransferase 22 U/L (12-78); Albumin Level 4.7 g/dl (3.5-5.0); Albumin/Globulin Ratio 1.7 (1.1-1.8); Alkaline Phosphatase 64 U/L (38-126); Anion Gap 13.2 mEq/L (5-15); Aspartate Amino Transferase 26 U/L (17-59); Bilirubin,Total 0.3 mg/dl (0.2-1.3); Blood Urea Nitrogen 14 mg/dl (9-20); Calcium 9.1 mg/dl (8.4-10.2); Carbon Dioxide 26 mmol/L (22.0-30.0); Chloride 106 mmol/L (98-107); Creatinine Clearance Estimated 214 mL/min (50-200); Estimated Glomerular Filt Rate 142 ml/min (>60); GFR (African American) 172 ML/MIN (>60); Globulin 2.7 g/dL (1.3-3.2); Glucose 107 mg/dl (74-100); Potassium 4.2 mmoL/L (3.5-5.1); Sodium 141 mmol/L (136-145); Total Protein,Serum 7.4 g/dl (6.3-8.2)
[2023-05-24 18:48] LABS: Troponin I < 0.01 ng/ml (0.00-0.034)
--- NOTE | 2023-05-24 18:49 | HMH.EDGENADL ---
Discharge Plan Disposition Patient Disposition: Home, Self-Care Prescriptions Prescriptions: No Action pantoprazole 40 mg tablet,delayed release (DR/EC) 40 mg PO DAILY Qty: 30 0RF ondansetron 4 mg tablet,disintegrating 4 mg PO Q8H PRN (Reason: nausea and vomiting) 4 Days Qty: 12 0RF Referrals Follow up/Referrals: Joo Garcia MD [Primary Care Provider] - See instructions Clinical Impressions Clinical Impression: Viral syndrome Discharge ED Provider: Jen Moe General Adult HPI General Chief complaint: PAIN Stated complaint: abd pain Time Seen by Provider: 05/24/23 18:38 Mode of Arrival: Ambulatory Source of Information: Patient Limitations: No Limitations Description of Symptoms (Recalled from ER Triage Doc. by RN): pt presents to ED c/o chest pain x 3 days and hurting all over. pt also states he has had a cough and congestion. denies known fever. pt unable to describe chest pain. pt states he was seen and evaluated in ED a couple nights ago. History of Present Illness HPI narrative: Patient is a 23-year-old male presents today with multiple complaints. States that he is here few days ago with some coffee-ground emesis though symptoms have significantly improved since that time. He states he is here today primarily for pain all over his entire body including on his right side of his chest abdomen legs back. Took some Advil prior to arrival without any significant improvement. Denies any fever. No exertional chest pain or shortness of breath diaphoresis etc. States he also saw something pulsing in his abdomen started googling this online was concerned he had a ruptured AAA. Related Data Previous Rx's Medication Instructions Recorded ondansetron 4 mg disintegrating 4 mg PO Q8H PRN nausea and 05/22/23 tablet vomiting 4 days #12 tabs pantoprazole 40 mg tablet,delayed 40 mg PO DAILY #30 tabs 05/22/23 release Allergies Allergy/AdvReac Type Severity Reaction Status Date / Time Penicillins Allergy Verified 04/05/23 15:37 [facility] Disclaimer: The information contained in this section may have been updated after the patient was seen, as this information can be updated by other users. Medical History High ankle sprain of left lower extremity Surgical History Acute appendicitis History of appendectomy Family History Other No significant family history Social History Smoking Status: Current every day smoker tobacco type: smokeless tobacco alcohol intake: never counseling provided: provider counseling substance use type: denies use current occupational status: student Travel in the last 8 weeks: None household members: family housing: house caffeine: No ROS Obtained: Yes All systems reviewed & no additional complaints except as documented Physical Exam General General appearance: alert Chest Chest inspection: Present normal inspection and symmetric chest wall rise Respiratory Respiratory exam: Present normal lung sounds bilaterally; Absent respiratory distress Cardiovascular Cardiovascular exam: Present regular rate and normal rhythm Abdominal Exam Abdominal exam: Present soft and distention; Absent tenderness Neurological Exam Neurological exam: Present alert and oriented X3 Medical Decision Making Maxim Inquiry Pt receiving controlled substance: No Vital Signs: 05/24/23 18:07 Temperature 98.8 F Temperature Source Oral Pulse Rate [Right Radial] 97 H Respiratory Rate 18 Blood Pressure [Right Arm] 165/77 H Blood Pressure Mean [Right Arm] 106 Blood Pressure Source [Right Arm] Automatic Cuff Blood Pressure Position [Right Arm] Sitting 02 Sat by Pulse Oximetry 100 Oxygen Delivery Method Room Air Lab Data Lab results reviewed: Yes I reviewed the patient's lab results. Lab Results 05/24/23 18:18: WBC 12.5 H, RBC 5.15, Hgb 16.1, Hct 45.9, MCV 89.0, MCH 31.3 H, MCHC 35.1, RDW 14.0, Plt Count 223, MPV 7.9, Neut % (Auto) 47.6, Lymph % (Auto) 40.4, [place] % (Auto) 5.9, Eos % (Auto) 5.3, Baso % (Auto) 0.8, Neut # (Auto) 6.0, Lymph # (Auto) 5.1 H, [place] # (Auto) 0.7, Eos # (Auto) 0.7 H, Baso # (Auto) 0.1, Sodium 141, Potassium 4.2, Chloride 106, Carbon Dioxide 26, Anion Gap 13.2, BUN 14, Creatinine 0.70, Estimated Creat Clear 214, Estimated GFR 142, Est GFR ( Amer) 172, Glucose 107 H, Calcium 9.1, Total Bilirubin 0.3, AST 26, ALT 22, Alkaline Phosphatase 64, Troponin I < 0.01, Total Protein 7.4, Albumin 4.7, Globulin 2.7, Albumin/Globulin Ratio 1.7, SARS-CoV-2 (PCR) Not detected, Influenza A Untype (PCR) Not detected, Influenza Type B (PCR) Not detected 05/24/23 18:18 05/24/23 18:18 Orders (Tests/Meds): ED MEDICATIONS Generic Name Dose Route Start Last Admin Trade Name Freq PRN Reason Stop Dose Admin Sodium Chloride 10 ml 05/24/23 18:22 Sodium Chloride 0.9% 10ml Flush Syringe IV 06/23/23 18:21 NEEDED PRN Maintain IV Site Discontinued Medications Generic Name Dose Route Start Last Admin Trade Name Freq PRN Reason Stop Dose Admin Acetaminophen 1,000 mg 05/24/23 18:48 Acetaminophen 500mg Tab PO 05/24/23 18:49 ONCE ONE Ketorolac Tromethamine 15 mg 05/24/23 18:48 Ketorolac 30mg/Ml Vial IV 05/24/23 18:49 ONCE ONE ORDERS Category Date Time Status XR chest 2V Stat Exams 05/24/23 18:16 Completed Complete Blood Count Auto Diff Stat Lab 05/24/23 18:18 Completed Comprehensive Metabolic Panel Stat Lab 05/24/23 18:18 Completed Rapid PCR Covid and Flu A/B Stat Lab 05/24/23 18:18 Completed Troponin I Q3H Lab 05/24/23 21:30 Ordered Troponin I Q3H Lab 05/25/23 00:30 Ordered Troponin I Stat Lab 05/24/23 18:18 Completed ECG initial [place] Routine Y 05/24/23 18:14 Completed Medical Decision Narrative: Patient is a well-appearing 23-year-old male with a benign exam. Symptoms are consistent with a viral syndrome today. Specifically am not concerned about a AAA or rupture AAA. He has pain all over his entire body will give him some Toradol and Tylenol. Swab for COVID and flu. Chest x-ray performed to person interpreted shows no acute cardiopulmonary emergency labs are unremarkable. He is stable for outpatient management. COVID and flu are negative. Labs unremarkable troponin undetectably low. EKG performed at person interpreted shows ventricular rate of 91 no acute ischemic changes noted there is an S1Q3T3 which is nonspecific and some inferior T wave inversions. But no ST segment elevations or depressions. He has been advised to follow-up with primary care doctor outpatient as needed. Patient very stable upon being discharged Critical Care Critical Care Time Critical Care Time: No
[2023-05-24] MEDS: ACETAMINOPHEN 500MG TAB 1000 MG PO (19:02)
[2023-05-24] MEDS: KETOROLAC 30MG/ML VIAL 15 MG IV (19:02)
[2023-05-24 19:07] VITALS: BP 146/86; PULSE 90; RESP 20; TEMP 36.7; O2SAT 97
== END 2023-05-24 19:08 | disposition home or self-care (01) ==
PROVIDERS: Emergency Provider Student in an Organized Health Care Education/Training Program; PCP Family Medicine
DX: R07.9 Chest pain, unspecified (principal); R10.9 Unspecified abdominal pain; R05.9 Cough, unspecified; F17.290 Nicotine dependence, other tobacco product, uncomplicated
CPT/HCPCS: 71046; 80053; 84484; 85025; 87636; 93005; 96374; 99285

== ENCOUNTER 2023-05-27 20:51 | Emergency (ER) | payer OTHER, SELFPAY ==
[2023-05-27 21:00] VITALS: BP 158/88; PULSE 104; RESP 22; TEMP 36.9; O2SAT 99; BMI 29.5
--- NOTE | 2023-05-27 21:14 | XR_ITS ---
PROCEDURE INFORMATION: Exam: XR Chest Exam date and time: 05/27/2023 9:31 PM Age: 23 years old Clinical indication: Pain; Other: Epigastric; Additional info: Cp TECHNIQUE: Imaging protocol: Radiologic exam of the chest. Views: 1 view. COMPARISON: CR XR CHEST 2V 05/24/2023 6:14 PM FINDINGS: Lungs: Unremarkable. No consolidation. Pleural spaces: Unremarkable. No pleural effusion. No pneumothorax. Heart/Mediastinum: Unremarkable. No cardiomegaly. Bones/joints: Unremarkable. IMPRESSION: No acute cardiopulmonary disease.
--- NOTE | 2023-05-27 21:14 | CT_ITS ---
PROCEDURE INFORMATION: Exam: CT Abdomen And Pelvis With Contrast Exam date and time: 05/27/2023 10:23 PM Age: 23 years old Clinical indication: Abdominal pain; Epigastric; Prior surgery; Surgery date: 6+ months; Surgery type: Appendectomy; Additional info: Chronic severe epigastric pain TECHNIQUE: Imaging protocol: Computed tomography of the abdomen and pelvis with contrast. Radiation optimization: All CT scans at this facility use at least one of these dose optimization techniques: automated exposure control; mA and/or kV adjustment per patient size (includes targeted exams where dose is matched to clinical indication); or iterative reconstruction. Contrast material: ISOVUE; Contrast volume: 75 ml; Contrast route: IV; [facility] pelvis wo con 05/03/2017 11:01 PM FINDINGS: Liver: Normal. No mass. Gallbladder and bile ducts: Normal. No calcified stones. No ductal dilation. Pancreas: Normal. No ductal dilation. Spleen: Normal. No splenomegaly. Adrenal glands: Normal. No mass. Kidneys and ureters: Normal. No hydronephrosis. Stomach and bowel: Unremarkable. No obstruction. No mucosal thickening. Appendix: Not visualized status post cholecystectomy. Intraperitoneal space: Unremarkable. No free air. No significant fluid collection. Vasculature: Unremarkable. No abdominal aortic aneurysm. Lymph nodes: Unremarkable. No enlarged lymph nodes. Reactive mesenteric/retroperitoneal shotty lymph nodes. Urinary bladder: Unremarkable as visualized. Reproductive: Unremarkable as visualized. Bones/joints: Unremarkable. No acute fracture. Soft tissues: Unremarkable. IMPRESSION: 1. No acute findings. 2. Reactive mesenteric/retroperitoneal lymph nodes.
--- NOTE | 2023-05-27 21:16 | HMH.EDGENADL ---
Discharge Plan Disposition Patient Disposition: Home, Self-Care Prescriptions Prescriptions: New ondansetron 4 mg tablet,disintegrating 4 mg PO Q8H PRN (Reason: nausea and vomiting) 4 Days Qty: 12 0RF No Action pantoprazole 40 mg tablet,delayed release (DR/EC) 40 mg PO DAILY Qty: 30 0RF ondansetron 4 mg tablet,disintegrating 4 mg PO Q8H PRN (Reason: nausea and vomiting) 4 Days Qty: 12 0RF Referrals Follow up/Referrals: Joo Garcia MD [Primary Care Provider] - See instructions Activity Restrictions/Add. Instructions Additional Instructions/Restrictions: At this time it was felt you are safe to be discharged home. If new or worsening symptoms please do not hesitate to return the emergency department. Clinical Impressions Clinical Impression: Chest pain, Mesenteric lymphadenopathy Abdominal pain Qualifiers: Abdominal location: upper abdomen, unspecified Qualified Code(s): R10.10 - Upper abdominal pain, unspecified Instructions Patient Instructions: DI for Acute Abdominal Pain Discharge ED Provider: Aston Llamas General Adult HPI <Aston Llamas MD - Last Filed: 05/27/23 22:53> General Chief complaint: Abdominal Pain Stated complaint: Abdominal Pain Time Seen by Provider: 05/27/23 21:04 Mode of Arrival: Family Vehicle Source of Information: Patient Limitations: No Limitations Description of Symptoms (Recalled from ER Triage Doc. by RN): 23 yo male presents with CC of mid epigastric abd pain that he describes as sharp and stabbing. Onset 2 hours ago this time. Patient further states he has had intermittent ongoing issues with his abdomen for the last 3 weeks. Accompanied by n/v and constipation. Has been seen in this ER and at PCP multiple times. History of Present Illness HPI narrative: Patient is a 23-year-old male with no pertinent past medical history presents emergency department for evaluation of abdominal pain and chest pain. Patient has intermittent abdominal pain has been evaluated multiple times by PCP and emergency department with no definitive etiology. Few hours prior to arrival patient has epigastric pain, nonbloody vomiting that is moderate to severe intensity causing her to present here for continued evaluation. Patient also feels intermittent racing of his heart as well as intermittent chest pain throughout the course causing him to present here for continued evaluation. Last marijuana use 3 weeks ago. Related Data Previous Rx's Medication Instructions Recorded ondansetron 4 mg disintegrating 4 mg PO Q8H PRN nausea and 05/22/23 tablet vomiting 4 days #12 tabs pantoprazole 40 mg tablet,delayed 40 mg PO DAILY #30 tabs 05/22/23 release ondansetron 4 mg disintegrating 4 mg PO Q8H PRN nausea and 05/27/23 tablet vomiting 4 days #12 tabs Allergies Allergy/AdvReac Type Severity Reaction Status Date / Time Penicillins Allergy Verified 04/05/23 15:37 PFSH <Aston Llamas MD - Last Filed: 05/27/23 22:53> PFS Disclaimer: The information contained in this section may have been updated after the patient was seen, as this information can be updated by other users. Medical History High ankle sprain of left lower extremity Surgical History Acute appendicitis History of appendectomy Family History Other No significant family history Social History Smoking Status: Unknown if ever smoked alcohol intake: never counseling provided: provider counseling substance use type: denies use current occupational status: student Travel in the last 8 weeks: None household members: family housing: house caffeine: No <Aston Llamas MD - Last Filed: 05/27/23 22:53> ROS Obtained: Yes Systems reviewed as appropriate & no additional complaints except as documented Physical Exam <Aston Llamas MD - Last Filed: 05/27/23 22:53> General General appearance: alert and in no apparent distress Head Head exam: atraumatic and normocephalic Eye Eye exam: Present PERRL ENT ENT exam: Present mucous membranes moist Neck Neck exam: Present normal inspection Chest Chest inspection: Present normal inspection and symmetric chest wall rise Respiratory Respiratory exam: Present normal lung sounds bilaterally; Absent respiratory distress Cardiovascular Cardiovascular exam: Present normal rhythm and tachycardia Abdominal Exam Abdominal exam: Present soft and tenderness (Mild, epigastric) Extremities Exam Extremities exam: Present normal inspection Neurological Exam Neurological exam: Present alert Psychiatric Psychiatric exam: Present normal affect Skin Skin exam: Present warm and dry Medical Decision Making <Aston Llamas MD - Last Filed: 05/27/23 22:53> Maxim Inquiry Pt receiving controlled substance: No Vital Signs: 05/27/23 21:00 05/27/23 21:30 05/27/23 23:59 Temperature 98.5 F 98.2 F Temperature Source Oral Oral Pulse Rate 84 67 Pulse Rate [Right Brachial] 104 H Respiratory Rate 22 19 Blood Pressure 131/69 125/69 Blood Pressure [Right Arm] 158/88 H Blood Pressure Mean [Right Arm] 111 Blood Pressure Source Automatic Cuff Blood Pressure Source [Right Arm] Automatic Cuff Blood Pressure Position Sitting Blood Pressure Position [Right Arm] Sitting 02 Sat by Pulse Oximetry 99 99 Oxygen Delivery Method Room Air Room Air Lab Data Lab Results 05/27/23 21:04: WBC 17.1 H, RBC 5.48, Hgb 17.2, Hct 49.5, MCV 90.3, MCH 31.4 H, MCHC 34.8, RDW 13.9, Plt Count 221, MPV 8.0, Neut % (Auto) 55.5, Lymph % (Auto) 34.4, [place] % (Auto) 4.8, Eos % (Auto) 4.7, Baso % (Auto) 0.6, Neut # (Auto) 9.5 H, Lymph # (Auto) 5.9 H, [place] # (Auto) 0.8, Eos # (Auto) 0.8 H, Baso # (Auto) 0.1, Total Counted 100, Neutrophils % (Manual) 60, Lymphocytes % (Manual) 33, Atypical Lymphs % 5.0, Monocytes % (Manual) 1 L, Eosinophils % (Manual) 1, Platelet Estimate Normal, RBC Morphology Normal, D-Dimer < 0.25, Sodium 139, Potassium 3.6, Chloride 106, Carbon Dioxide 24, Anion Gap 12.6, BUN 11, Creatinine 0.70, Estimated Creat Clear 214, Estimated GFR 142, Est GFR ( Amer) 172, Glucose 94, Lactate 1.0, Calcium 9.3, Magnesium 1.8, Total Bilirubin 0.5, AST 28, ALT 23, Alkaline Phosphatase 82, Troponin I < 0.01, Total Protein 7.6, Albumin 4.8, Globulin 2.8, Albumin/Globulin Ratio 1.7, Lipase 49 05/27/23 21:04 05/27/23 21:04 Orders (Tests/Meds): ED MEDICATIONS Discontinued Medications Generic Name Dose Route Start Last Admin Trade Name Liset PRN Reason Stop Dose Admin Acetaminophen 1,000 mg 05/27/23 21:14 05/27/23 21:24 Acetaminophen 1,000mg/100ml Vial IV 05/27/23 21:15 1,000 mg ONCE ONE Administration Belladonna Alkaloids 60 ml 05/27/23 21:14 05/27/23 21:24 Belladonna Alkaloids 60 Ml Ml PO 05/27/23 21:15 60 ml ONCE ONE Administration Lactated Ringer's 1,000 mls @ 999 mls/hr 05/27/23 21:14 05/27/23 21:24 Lactated Ringer's 1000 Ml Bag IV 05/27/23 22:14 999 mls/hr .Q1H1M ONE Administration Iopamidol 75 ml 05/27/23 22:38 05/27/23 22:39 Iopamidol-370 (76%);100ml Bottle IV 05/27/23 22:39 75 ml ONCE ONE Administration Morphine Sulfate 4 mg 05/27/23 21:14 05/27/23 21:24 Morphine 4mg/Ml Syringe IV 05/27/23 21:15 4 mg ONCE ONE Administration Ondansetron HCl 4 mg 05/27/23 21:14 05/27/23 21:24 Ondansetron 4mg/2ml Vial IV 05/27/23 21:15 4 mg ONCE ONE Administration Sodium Chloride 10 ml 05/27/23 21:07 Sodium Chloride 0.9% 10ml Flush Syringe IV 06/26/23 21:06 NEEDED PRN Maintain IV Site Sodium Chloride 10 ml 05/27/23 22:38 05/27/23 22:39 Sodium Chloride 0.9% 10ml Syr (Rad Only) IV 05/27/23 22:39 10 ml ONCE ONE Administration ORDERS Category Date Time Status CT abdomen pelvis w con Stat Cat Scan 05/27/23 21:14 Completed CXR --portable [XR chest portable] Stat Exams 05/27/23 21:14 Taken Complete Blood Count Auto Diff Stat Lab 05/27/23 21:04 Completed Comprehensive Metabolic Panel Stat Lab 05/27/23 21:04 Completed D-Dimer Stat Lab 05/27/23 21:04 Completed Lactic Acid Stat Lab 05/27/23 21:04 Completed Lipase Stat Lab 05/27/23 21:04 Completed Magnesium Stat Lab 05/27/23 21:04 Completed Troponin I Stat Lab 05/27/23 21:04 Completed EKG Request [ECG Request] Stat Y 05/27/23 21:14 Ordered ECG Data Tracing #1: Independently turbid by me, rate is 73, rhythm is regular, no ST elevation in anatomical contiguous leads, QTc 384. Medical Decision Narrative: In summary patient is a 23-year-old male past medical history described above who presents emergency department for evaluation of multiple complaints including chest pain and subacute abdominal pain. Patient is hemodynamically stable nontoxic-appearing upon arrival, afebrile, slight tachycardia. Differential diagnoses respect to chest pain includes noncardiac chest pain, ACS, pulmonary embolism, among others. Differential diagnoses respect abdominal pain includes pancreatitis, intra-abdominal mass, among others. Workup will be conducted with hematologic labs, CT abdomen pelvis IV contrast, chest x-ray, EKG, troponin, D-dimer. Initial inventions include multimodal pain control, GI cocktail, Zofran, crystalloid bolus. Initial workup reviewed by me, patient has nonspecific leukocytosis, remainder of hematologic labs are nonactionable. D-dimer below detectable limit effectively ruling out pulmonary embolism as cause of his chest pain, initial troponin undetectably low. Upon repeat evaluation patient had resolving tachycardia. CT abdomen pelvis was conducted and pending at time of transfer of care to the oncoming physician, Dr. Thakur. <Toi Thakur MD - Last Filed: 05/28/23 00:44> Vital Signs: 05/27/23 21:00 05/27/23 21:30 05/27/23 23:59 Temperature 98.5 F 98.2 F Temperature Source Oral Oral Pulse Rate 84 67 Pulse Rate [Right Brachial] 104 H Respiratory Rate 22 19 Blood Pressure 131/69 125/69 Blood Pressure [Right Arm] 158/88 H Blood Pressure Mean [Right Arm] 111 Blood Pressure Source Automatic Cuff Blood Pressure Source [Right Arm] Automatic Cuff Blood Pressure Position Sitting Blood Pressure Position [Right Arm] Sitting 02 Sat by Pulse Oximetry 99 99 Oxygen Delivery Method Room Air Room Air Lab Data Lab Results 05/27/23 21:04: WBC 17.1 H, RBC 5.48, Hgb 17.2, Hct 49.5, MCV 90.3, MCH 31.4 H, MCHC 34.8, RDW 13.9, Plt Count 221, MPV 8.0, Neut % (Auto) 55.5, Lymph % (Auto) 34.4, [place] % (Auto) 4.8, Eos % (Auto) 4.7, Baso % (Auto) 0.6, Neut # (Auto) 9.5 H, Lymph # (Auto) 5.9 H, [place] # (Auto) 0.8, Eos # (Auto) 0.8 H, Baso # (Auto) 0.1, Total Counted 100, Neutrophils % (Manual) 60, Lymphocytes % (Manual) 33, Atypical Lymphs % 5.0, Monocytes % (Manual) 1 L, Eosinophils % (Manual) 1, Platelet Estimate Normal, RBC Morphology Normal, D-Dimer < 0.25, Sodium 139, Potassium 3.6, Chloride 106, Carbon Dioxide 24, Anion Gap 12.6, BUN 11, Creatinine 0.70, Estimated Creat Clear 214, Estimated GFR 142, Est GFR ( Amer) 172, Glucose 94, Lactate 1.0, Calcium 9.3, Magnesium 1.8, Total Bilirubin 0.5, AST 28, ALT 23, Alkaline Phosphatase 82, Troponin I < 0.01, Total Protein 7.6, Albumin 4.8, Globulin 2.8, Albumin/Globulin Ratio 1.7, Lipase 49 Orders (Tests/Meds): ED MEDICATIONS Discontinued Medications Generic Name Dose Route Start Last Admin Trade Name Freq PRN Reason Stop Dose Admin Acetaminophen 1,000 mg 05/27/23 21:14 05/27/23 21:24 Acetaminophen 1,000mg/100ml Vial IV 05/27/23 21:15 1,000 mg ONCE ONE Administration Belladonna Alkaloids 60 ml 05/27/23 21:14 05/27/23 21:24 Belladonna Alkaloids 60 Ml Ml PO 05/27/23 21:15 60 ml ONCE ONE Administration Lactated Ringer's 1,000 mls @ 999 mls/hr 05/27/23 21:14 05/27/23 21:24 Lactated Ringer's 1000 Ml Bag IV 05/27/23 22:14 999 mls/hr .Q1H1M ONE Administration Iopamidol 75 ml 05/27/23 22:38 05/27/23 22:39 Iopamidol-370 (76%);100ml Bottle IV 05/27/23 22:39 75 ml ONCE ONE Administration Morphine Sulfate 4 mg 05/27/23 21:14 05/27/23 21:24 Morphine 4mg/Ml Syringe IV 05/27/23 21:15 4 mg ONCE ONE Administration Ondansetron HCl 4 mg 05/27/23 21:14 05/27/23 21:24 Ondansetron 4mg/2ml Vial IV 05/27/23 21:15 4 mg ONCE ONE Administration Sodium Chloride 10 ml 05/27/23 21:07 Sodium Chloride 0.9% 10ml Flush Syringe IV 06/26/23 21:06 NEEDED PRN Maintain IV Site Sodium Chloride 10 ml 05/27/23 22:38 05/27/23 22:39 Sodium Chloride 0.9% 10ml Syr (Rad Only) IV 05/27/23 22:39 10 ml ONCE ONE Administration ORDERS Category Date Time Status CT abdomen pelvis w con Stat Cat Scan 05/27/23 21:14 Completed CXR --portable [XR chest portable] Stat Exams 05/27/23 21:14 Taken Complete Blood Count Auto Diff Stat Lab 05/27/23 21:04 Completed Comprehensive Metabolic Panel Stat Lab 05/27/23 21:04 Completed D-Dimer Stat Lab 05/27/23 21:04 Completed Lactic Acid Stat Lab 05/27/23 21:04 Completed Lipase Stat Lab 05/27/23 21:04 Completed Magnesium Stat Lab 05/27/23 21:04 Completed Troponin I Stat Lab 05/27/23 21:04 Completed EKG Request [ECG Request] Stat Y 05/27/23 21:14 Ordered HEART Score HEART Score: 0 Medical Decision Narrative: In summary patient is a 23-year-old male past medical history described above who presents emergency department for evaluation of multiple complaints including chest pain and subacute abdominal pain. Patient is hemodynamically stable nontoxic-appearing upon arrival, afebrile, slight tachycardia. Differential diagnoses respect to chest pain includes noncardiac chest pain, ACS, pulmonary embolism, among others. Differential diagnoses respect abdominal pain includes pancreatitis, intra-abdominal mass, among others. Workup will be conducted with hematologic labs, CT abdomen pelvis IV contrast, chest x-ray, EKG, troponin, D-dimer. Initial inventions include multimodal pain control, GI cocktail, Zofran, crystalloid bolus. Initial workup reviewed by me, patient has nonspecific leukocytosis, remainder of hematologic labs are nonactionable. D-dimer below detectable limit effectively ruling out pulmonary embolism as cause of his chest pain, initial troponin undetectably low. Upon repeat evaluation patient had resolving tachycardia. CT abdomen pelvis was conducted and pending at time of transfer of care to the oncoming physician, Dr. Thakur. Blaze MELENDEZ: I assumed care of the patient at the time of handoff from the prior provider. On reassessment patient reports symptomatic improvement. I had extensive discussion with patient regarding his symptoms. I reviewed the patient's labs, they are all nonactionable. Does show mildly elevated white count with elevated lymphocytes and eosinophils, but this is nonspecific. CT of the abd/pelvis shows no evidence of emergent or surgical pathology. Does show mesenteric lymph nodes which are likely the source of the patient's pain. I had extensive discussion with patient regarding these findings. He is going to follow-up with his PCP on Sunday of this week. After PCP follow-up, he may require GI referral for further assessment if there is concern for inflammatory bowel disease or other pathology Critical Care <Aston Llamas MD - Last Filed: 05/27/23 22:53> Critical Care Time Critical Care Time: No
[2023-05-27 21:20] LABS: Basophils # 0.1 K/mm3 (0-0.2); Basophils % 0.6 % (0.1-2.0); Eosinophils # 0.8 K/mm3 (0.0-0.4); Eosinophils % 4.7 % (0.1-12.0); Hematocrit 49.5 % (42.0-52.0); Hemoglobin 17.2 g/dL (14.1-18.0); Lymphocytes # 5.9 K/mm3 (0.7-4.5); Lymphocytes % 34.4 % (10-50); Mean Corpuscular HGB Conc 34.8 g/dL (31.8-35.4); Mean Corpuscular Hemoglobin 31.4 pg (27.0-31.2); Mean Corpuscular Volume 90.3 fl (80-94); Monocytes # 0.8 K/mm3 (0.1-1.0); Monocytes % 4.8 % (1.7-9.3); Neutrophils # 9.5 K/mm3 (1.8-7.8); Neutrophils % 55.5 % (37.0-80.0); Platelet Count 221 K/mm3 (142-424); Red Blood Count 5.48 M/mm3 (4.60-6.20); Red Cell Distribution Width 13.9 % (11.5-17.5); White Blood Count 17.1 K/mm3 (4.8-10.8)
[2023-05-27 21:21] LABS: MANUAL DIFFERENTIAL MANUAL DIFFERENTIAL (MANUAL DIFF)
[2023-05-27] MEDS: MORPHINE 4MG/ML SYRINGE 4 MG IV (21:24)
[2023-05-27] MEDS: BELLADONNA ALKALOIDS 60 ML ML PO (21:24)
[2023-05-27] MEDS: ACETAMINOPHEN 1,000MG/100ML VIAL 1000 MG IV (21:24)
[2023-05-27] MEDS: ONDANSETRON 4MG/2ML VIAL 4 MG IV (21:24)
[2023-05-27] MEDS: LACTATED RINGERS 1000ML 1,000 ML 999 ML IV (21:24)
[2023-05-27 21:26] LABS: Alanine Aminotransferase 23 U/L (12-78); Albumin Level 4.8 g/dl (3.5-5.0); Albumin/Globulin Ratio 1.7 (1.1-1.8); Alkaline Phosphatase 82 U/L (38-126); Anion Gap 12.6 mEq/L (5-15); Aspartate Amino Transferase 28 U/L (17-59); Bilirubin,Total 0.5 mg/dl (0.2-1.3); Blood Urea Nitrogen 11 mg/dl (9-20); Calcium 9.3 mg/dl (8.4-10.2); Carbon Dioxide 24 mmol/L (22.0-30.0); Chloride 106 mmol/L (98-107); Creatinine Clearance Estimated 214 mL/min (50-200); Estimated Glomerular Filt Rate 142 ml/min (>60); GFR (African American) 172 ML/MIN (>60); Globulin 2.8 g/dL (1.3-3.2); Glucose 94 mg/dl (74-100); Lipase 49 U/L (23-300); Potassium 3.6 mmoL/L (3.5-5.1); Sodium 139 mmol/L (136-145); Total Protein,Serum 7.6 g/dl (6.3-8.2)
[2023-05-27 21:30] VITALS: BP 131/69; PULSE 84; O2SAT 99
--- NOTE | 2023-05-27 21:34 | PC.NURSE ---
Addendum entered by Yaima Gonsalez RN 05/27/23 21:37: Pt taken for CXR, inform supply chain technician to hold off on CT until ddimer is back Original Note: Pt transported to CT
[2023-05-27 21:35] LABS: D-Dimer < 0.25 ug/mL (0.0-0.5)
[2023-05-27 21:52] LABS: Magnesium 1.8 mg/dl (1.6-2.3)
[2023-05-27 22:06] LABS: Eosinophils % 1 % (0-3); Lymphocytes % 33 % (10-50); Monocytes % 1 % (2-9); Neutrophils % 60 % (42-76); Platelet Estimate Normal; RBC Morphology Normal; Total Cells Counted 100; Troponin I < 0.01 ng/ml (0.00-0.034)
--- NOTE | 2023-05-27 22:13 | PC.NURSE ---
pt to CT
[2023-05-27] MEDS: IOPAMIDOL-370 (76%);100ML BOTTLE 75 ML IV (22:39)
[2023-05-27] MEDS: SODIUM CHLORIDE 0.9% 10ML SYR (RAD ONLY) 10 ML IV (22:39)
[2023-05-27 23:59] VITALS: BP 125/69; PULSE 67; RESP 19; TEMP 36.8; O2SAT 98
== END 2023-05-28 00:01 | disposition home or self-care (01) ==
PROVIDERS: Emergency Provider Emergency Medicine; PCP Family Medicine
DX: R07.9 Chest pain, unspecified (principal); R10.10 Upper abdominal pain, unspecified; I88.0 Nonspecific mesenteric lymphadenitis; R10.13 Epigastric pain; R11.10 Vomiting, unspecified; D72.829 Elevated white blood cell count, unspecified
CPT/HCPCS: 71045; 74177; 80053; 83605; 83690; 83735; 84484; 85007; 85025; 85378; 93005; 96361; 96374; 96375; 99285; J0131; J2405; Q9967

== ENCOUNTER 2023-05-31 08:45 | Outpatient (CLI) | payer OTHER, SELFPAY ==
--- NOTE | 2023-05-31 08:50 | US_ITS ---
FINAL REPORT CLINICAL HISTORY: RT UPPER QUADRANT PAIN FINDINGS: RIGHT UPPER QUADRANT ULTRASOUND Sonographic images of the right upper quadrant were obtained. The pancreas is partially obscured. There is fatty infiltration of the liver. The gallbladder appears normal without evidence of gallstones.The common duct measures 2 mm. Limited images of the right kidney are normal. IMPRESSION: Fatty liver. Reviewed, Interpreted and Dictated by Chente Holguin III, MD Transcribed by Eufemia Armijo Authenticated and [facility]
== END 2023-05-31 23:59 ==
LOC: RAD 08:45
PROVIDERS: PCP Family Medicine; Visit Provider Physician Assistant
DX: R10.11 Right upper quadrant pain (principal)
CPT/HCPCS: 76705

== ENCOUNTER 2023-09-19 11:00 | Outpatient (CLI) | payer OTHER, SELFPAY ==
[2023-09-19 18:19] LABS: Adenovirus,PCR Not Detected (NotDetected); Bordetella Pertussis Not Detected (NotDetected); Chlamydophila Pneumoniae, PCR Not Detected (NotDetected); Coronavirus 19, PCR Not Detected (NotDetected); Coronavirus 229E Not Detected (NotDetected); Coronavirus NL63 Not Detected (NotDetected); Coronavirus OC43 Not Detected (NotDetected); Coronovirus HKU1,PCR Not Detected (NotDetected); Human Metapneumovirus Not Detected (NotDetected); Influenza A, PCR Not Detected (NotDetected); Influenza AH1, 2009 Not Detected (NotDetected); Influenza AH1, PCR Not Detected (NotDetected); Influenza AH3,PCR Not Detected (NotDetected); Influenza B, PCR Not Detected (NotDetected); Parainfluenza 1, PCR Not Detected (NotDetected); Parainfluenza 2, PCR Not Detected (NotDetected); Parainfluenza 3, PCR Not Detected (NotDetected); Parainfluenza 4, PCR Not Detected (NotDetected); Respiratory Syncytial Virus Not Detected (NotDetected); Rhinovirus/Enterovirus Not Detected (NotDetected)
[2023-09-20 09:19] LABS: Mycoplasma Pneumoniae, PCR Detected (NotDetected)
== END 2023-09-19 23:59 | disposition home or self-care (01) ==
LOC: LAB.DROPOF 09-20 11:01
PROVIDERS: PCP Nurse Practitioner Family; Visit Provider Nurse Practitioner Family
DX: R05.9 Cough, unspecified (principal); R68.83 Chills (without fever); R53.1 Weakness; R63.0 Anorexia; R11.2 Nausea with vomiting, unspecified; Z68.34 Body mass index [BMI] 34.0-34.9, adult; B96.0 Mycoplasma pneumoniae [M. pneumoniae] as the cause of diseases classified elsewhere
CPT/HCPCS: 87070; 87581; 87632; 87635; 87798

== ENCOUNTER 2024-04-28 13:25 | Outpatient (CLI) | payer OTHER, SELFPAY ==
--- NOTE | 2024-04-28 13:33 | US_ITS ---
FINAL REPORT TECHNIQUE: Ultrasound images of the testicles were obtained bilaterally. Color Doppler images were obtained. CLINICAL HISTORY: RIGHT GROIN PAIN -- testicular pain COMPARISON: None FINDINGS: SCROTAL ULTRASOUND Testes have a homogeneous architecture. No masses are seen. Normal flow is demonstrated by Doppler exam. There are tiny physiologic hydroceles bilaterally. Epididymal structures are unremarkable. IMPRESSION: Unremarkable scrotal ultrasound. Reviewed, Interpreted and Dictated by Prosper Deng MD Transcribed by Shama Landry Authenticated and [facility]
== END 2024-04-28 23:59 | disposition home or self-care (01) ==
LOC: RAD 13:26
PROVIDERS: PCP Family Medicine; Visit Provider Physician Assistant
DX: R10.31 Right lower quadrant pain (principal)
CPT/HCPCS: 76870

== ENCOUNTER 2024-05-16 10:59 | Outpatient (CLI) | payer OTHER, SELFPAY ==
[2024-05-16 11:06] LABS: Microscopic, Urine URINE MICROSCOPIC (MICROSCOPIC)
[2024-05-16 11:18] LABS: Basophils # 0.1 K/mm3 (0-0.2); Basophils % 0.5 % (0.1-2.0); Eosinophils # 0.4 K/mm3 (0.0-0.4); Eosinophils % 3.9 % (0.1-12.0); Hematocrit 43.7 % (42.0-52.0); Hemoglobin 15.1 g/dL (14.1-18.0); Lymphocytes # 3.2 K/mm3 (0.7-4.5); Lymphocytes % 32.2 % (10-50); Mean Corpuscular HGB Conc 34.6 g/dL (31.8-35.4); Mean Corpuscular Hemoglobin 29.8 pg (27.0-31.2); Mean Corpuscular Volume 86.2 fl (80-94); Mean Platelet Volume 9.9 fl (7.4-10.4); Monocytes # 0.7 K/mm3 (0.1-1.0); Monocytes % 7.4 % (1.7-9.3); Neutrophils # 5.5 K/mm3 (1.8-7.8); Neutrophils % 55.7 % (37.0-80.0); Platelet Count 248 K/mm3 (142-424); Red Blood Count 5.07 M/mm3 (4.60-6.20); Red Cell Distribution Width 13.2 % (11.5-17.5); White Blood Count 9.9 K/mm3 (4.8-10.8)
[2024-05-16 11:24] LABS: Appearance,Urine CLEAR (Clear); Blood, Urine Negative (Negative); Color,Urine YELLOW (Yellow); Glucose,Urine (UA) Negative (Negative); Ketones,Urine Negative (Negative); Leukocyte Esterase,Urine Negative (Negative); Nitrate,Urine Negative (Negative); PH,Urine 7.5 (5.0-8.5); Protein,Urine Negative (Negative); Specific Gravity, Urine 1.025 (1.005-1.030)
[2024-05-16 11:32] LABS: Bilirubin,Urine 1+ (Negative)
[2024-05-16 11:42] LABS: Anion Gap 14.4 mEq/L (5-15); Blood Urea Nitrogen 12 mg/dl (9-20); Calcium 9.6 mg/dl (8.4-10.2); Carbon Dioxide 24 mmol/L (22.0-30.0); Chloride 106 mmol/L (98-107); Estimated Glomerular Filt Rate 121 ml/min (>60); GFR (African American) 146 ML/MIN (>60); Glucose 99 mg/dl (74-100); Potassium 4.4 mmoL/L (3.5-5.1); Sodium 140 mmol/L (136-145)
[2024-05-16 11:52] LABS: Bacteria,Urine Trace /lpf; Mucus,Urine Trace /lpf; Squamous Epithelial Cell,Urine Occasional #/hpf (0-5)
== END 2024-05-16 23:59 | disposition home or self-care (01) ==
LOC: LAB 11:01
PROVIDERS: PCP Family Medicine; Visit Provider Surgery
DX: R59.0 Localized enlarged lymph nodes (principal)
CPT/HCPCS: 36415; 80048; 81001; 85025

== ENCOUNTER 2024-05-30 14:24 | Outpatient (CLI) | payer OTHER, SELFPAY ==
[2024-05-30 15:32] LABS: Coronavirus 19, PCR Not Detected (NotDetected); Influenza A, PCR Not Detected (NotDetected); Influenza B, PCR Not Detected (NotDetected); Respiratory Syncytial Virus Not Detected (NotDetected)
[2024-05-30 18:04] LABS: Human Rhinovirus Detected (NotDetected)
== END 2024-05-30 23:59 | disposition home or self-care (01) ==
LOC: LAB.DROPOF 06-01 04:27
PROVIDERS: PCP Student in an Organized Health Care Education/Training Program; Visit Provider Student in an Organized Health Care Education/Training Program
DX: J40 Bronchitis, not specified as acute or chronic (principal); Z20.822 Contact with and (suspected) exposure to COVID-19; Z20.828 Contact with and (suspected) exposure to other viral communicable diseases
CPT/HCPCS: 87631

== ENCOUNTER 2024-06-03 08:23 | Outpatient (CLI) | payer OTHER, SELFPAY ==
--- NOTE | 2024-06-03 08:26 | CT_ITS ---
FINAL REPORT TECHNIQUE: Axial images of the pelvis were obtained by computed tomography after the administration of IV contrast. Multiplanar reconstruction images were also reviewed. This study was performed with techniques to keep radiation doses as low as reasonably achievable, (ALARA). Individualized dose reduction techniques using automated exposure control or adjustment of mA and/or kV according to the patient's size were employed. CLINICAL HISTORY: RT Groin pain/Inguinal adenopathy.GO THRU UPPER THIGH. COMPARISON: CT abdomen and pelvis 05/28/2023 FINDINGS: CT PELVIS WITH CONTRAST The appendix is not seen and may be surgically resected. Pelvic GI tract is without acute abnormality. No pelvic free fluid is seen. There are no enhancing fluid collections. No lymphadenopathy is noted. There is no abnormality seen in the right groin to suggest an etiology for the right inguinal pain. No acute osseous abnormality. IMPRESSION: No acute abnormality in the pelvis and no findings to suggest an etiology for groin pain. Reviewed, Interpreted and Dictated by Lindsey Quinones MD Transcribed by Yaima Escoto Authenticated and [facility]
[2024-06-03] MEDS: SODIUM CHLORIDE 0.9% 10ML SYR (RAD ONLY) 10 ML IV (08:48)
[2024-06-03] MEDS: IOPAMIDOL-370 (76%);100ML BOTTLE 75 ML IV (08:48)
== END 2024-06-03 23:59 | disposition home or self-care (01) ==
LOC: RAD 08:24
PROVIDERS: PCP Family Medicine; Visit Provider Surgery
DX: R59.0 Localized enlarged lymph nodes (principal)
CPT/HCPCS: 72193; Q9967

== ENCOUNTER 2024-06-12 06:03 | Day surgery (SDC) | payer OTHER, SELFPAY ==
[2024-06-10 13:08] VITALS: BMI 29.0
[2024-06-12 06:22] VITALS: BP 121/66; PULSE 64; RESP 18; TEMP 36.6; O2SAT 98
[2024-06-12] MEDS: LACTATED RINGERS 1000ML 1,000 ML 50 ML IV (06:31)
--- NOTE | 2024-06-12 07:21 | P.PNANES_ITS ---
[facility] Disclaimer: The information contained in this section may have been updated after the patient was seen, as this information can be updated by other users. Medical History Cholecystectomy planned Chest wall pain URI (upper respiratory infection) URI (upper respiratory infection) Exposure to COVID-19 virus Close exposure to COVID-19 virus Acute UTI (urinary tract infection) Vomiting Chest pain Abdominal pain Headache Nausea & vomiting Viral pneumonia Sinusitis Acute bronchitis Strep throat Low back strain Gastroenteritis Torticollis Asthma exacerbation Gastroenteritis Mesenteric lymphadenopathy High ankle sprain of left lower extremity Surgical History History of appendectomy Acute appendicitis Family History Other No significant family history Social History (Updated 06/12/24 @ 06:20 by Melia Millard RN) Smoking Status: Current every day smoker tobacco type: smokeless tobacco alcohol intake: never counseling provided: provider counseling substance use type: denies use current occupational status: unemployed Travel in the last 8 weeks: None household members: family housing: house caffeine: Yes Have you lived/traveled outside US in past 30 days?: No Contact w/someone who lives/traveled outside US past 30 days?: No Exposure to someone with infectious disease in past 14 days?: No Do you have a fever (greater than 100.4 F or 38 C)?: No Have you tested positive for COVID-19: No Exposed to someone with COVID-19 in past 14 days?: No Do you have a sore throat?: No Do you have a cough?: No Do you have any weakness?: No Are you experiencing any nausea/vomitting?: No Do you have any diarrhea?: No Are you experiencing any unusual bleeding?: No Do you have any muscle aches/pain?: No Do you have any abdominal pain?: No Are you experiencing loss of taste or smell?: No [facility] Anesthesia Checklist Patient Identification Patient Identification: Verbal (Name & ) Structural Data Admitted From: Home Planned Operative Procedure/s: egd NPO Status Verified Time NPO: 00:00 Additional verifications Anesthesia Reactions: No Airway Assessment Mallampati Score:: Class II C-Spine Mobility Assessed: Yes TMJ Mobility Assessed: Yes Dentition: Good Dentition Neurological Assessment Level of Consciousness: Awake, Alert and Appropriate Anesthesia Plan Anesthesia Risk discussed: Yes Anesthesia Plan: Verified ASA Class: II Anesthesia Type: MAC
--- NOTE | 2024-06-12 07:24 | P.HP_ITS ---
History of Present Illness *Admission Date: 06/12/24 *Reason for visit:: Epigastric pain/right upper quadrant pain *History of present illness: Mr. Jenkins is a 24-year-old gentleman who is here for diagnostic EGD secondary to epigastric pain, nausea, bloating, belching and gassiness. The examination is deemed medically necessary for diagnostic EGD. The patient has been seen, interviewed and examined prior to the procedure by both myself and the anesthesia provider. [facility] Disclaimer: The information contained in this section may have been updated after the patient was seen, as this information can be updated by other users. Medical History (Updated 06/12/24 @ 07:26 by Matthew Jim II, MD) Cholecystectomy planned Chest wall pain URI (upper respiratory infection) URI (upper respiratory infection) Exposure to COVID-19 virus Close exposure to COVID-19 virus Acute UTI (urinary tract infection) Vomiting Chest pain Abdominal pain Headache Nausea & vomiting Viral pneumonia Sinusitis Acute bronchitis Strep throat Low back strain Gastroenteritis Torticollis Asthma exacerbation Gastroenteritis Mesenteric lymphadenopathy High ankle sprain of left lower extremity Surgical History History of appendectomy Acute appendicitis Family History Other No significant family history Social History (Updated 06/12/24 @ 06:20 by Melia Millard RN) Smoking Status: Current every day smoker tobacco type: smokeless tobacco alcohol intake: never counseling provided: provider counseling substance use type: denies use current occupational status: unemployed Travel in the last 8 weeks: None household members: family housing: house caffeine: Yes Have you lived/traveled outside US in past 30 days?: No Contact w/someone who lives/traveled outside US past 30 days?: No Exposure to someone with infectious disease in past 14 days?: No Do you have a fever (greater than 100.4 F or 38 C)?: No Have you tested positive for COVID-19: No Exposed to someone with COVID-19 in past 14 days?: No Do you have a sore throat?: No Do you have a cough?: No Do you have any weakness?: No Are you experiencing any nausea/vomitting?: No Do you have any diarrhea?: No Are you experiencing any unusual bleeding?: No Do you have any muscle aches/pain?: No Do you have any abdominal pain?: No Are you experiencing loss of taste or smell?: No Other Medical History Have you received the Flu Vaccine for this season: No Have you received the Pneumonia Vaccine: No Review of Systems Review of Systems Review of systems (narrative): Negative *Cardiovascular Comments: Negative *Gastrointestinal Comments: Negative *Genitourinary Comments: Negative *Musculoskeletal Comments: Negative *Neurologic Comments: Negative Meds Home Medications and Allergies Home Medications ?Medication ?Instructions ?Recorded ?Confirmed ?Type pantoprazole 40 mg tablet,delayed 40 mg PO BID 02/04/24 06/12/24 History release psyllium seed (sugar) oral powder 1 tbsp PO DAILY 05/05/24 06/12/24 History (Metamucil (sugar) oral powder) New Prescriptions to Start Prescriptions: Allergies Allergy/AdvReac Type Severity Reaction Status Date / Time Penicillins Allergy Hives Verified 06/12/24 06:21 Exam Data for Last 24 hours Vital signs and Labs for Last 24 Hours: Temp Pulse Resp BP Pulse Ox O2 Del Method 97.9 F 64 18 121/66 98 Room Air 06/12/24 06:22 06/12/24 06:22 06/12/24 06:22 06/12/24 06:22 06/12/24 06:22 06/12/24 06:22 I & O for Last 24 hours: Intake & Output 06/09/24 06/10/24 06/11/24 06/12/24 23:59 23:59 23:59 23:59 Weight 202 lb *Routine HEENT Exam Head: Present normocephalic Eye: Present EOMI and PERRL ENT: Present mucous membranes moist *Routine Neck Exam Neck: Present supple *Routine Respiratory Exam Respiratory: Present CTA bilaterally *Routine Cardiovascular Exam Cardiovascular: Present RRR *Routine Abdominal Exam Abdominal: Present soft and normoactive bowel sounds; Absent tenderness *Routine Rectal Exam Rectal:: deferred *Routine Genitalia Exam Genitalia:: deferred *Routine Extremities Exam Extremities: Absent cyanosis, clubbing or edema *Routine Skin Exam Skin: Present warm; Absent rash *Routine Neurological Exam Neurological: Present alert and oriented X3 Assessment and Plan *Assessment and plan (1) Epigastric pain: Status: Acute Category: Medical Code(s): R10.13 - Epigastric pain (2) RUQ pain: Status: Acute Category: Medical Code(s): R10.11 - Right upper quadrant pain (3) Bloating: Status: Acute Category: Medical Code(s): R14.0 - Abdominal distension (gaseous) (4) Belching: Status: Acute Category: Medical Code(s): R14.2 - Eructation Plan A/P: 1. Epigastric/right upper quadrant abdominal pain with bloating and belching is the preprocedural diagnosis. The patient will be anesthetized/sedated using MAC sedation. The patient has been seen and examined. Cardiac and lung assessment prior to the examination is stable. Proceed with planned diagnostic EGD
[2024-06-12 07:26] VITALS: O2SAT 98
--- NOTE | 2024-06-12 07:31 | P.PCN_ITS ---
[facility] Procedure Note Date: 06/12/24 Time: 07:40 Procedure Note:: Upper Endoscopy Procedure Report: Esophagogastroduodenoscopy with cold biopsies Endoscopost: Matthew Jim II, MD Referring Physician: Ruddy Garcia MD Date of Procedure: June 12, 2024 Equipment: Olympus GIF 190 standard upper endoscope Sedation: MAC sedation Indications: Mr. Jenkins is a 24-year-old gentleman with moderate to severe dyspepsia with epigastric abdominal pain that sometimes is also in the right upper quadrant. He has had this for 2 years. He reports bloating, nausea and early satiety. He gets some belching. He did have an EGD with Dr. Rory Simon MD (gastroenterology in [place]) and states that he had 7 ulcers in the duodenum. The report is not available. He is on pantoprazole. He reports no NSAIDs. He reports no melena or hematochezia. He does get moderate heartburn and reflux which is partially controlled with the pantoprazole. He has a lost a moderate amount of weight (28 to 30 pounds in the last 2 years). He reports no dysphagia. Procedure: Prior to the procedure, a history and physical exam was performed, and patient's medications and allergies were reviewed. The risks, benefits and alternatives of the sedation and procedure were discussed with the patient. All questions were answered and informed consent was obtained. The patient was brought to the procedure room. Patient identification and proposed procedure were verified by the physician and the nurse. The patient was placed in a left lateral decubitus position and the scope was passed under direct vision. Throughout the procedure, the patient's blood pressure, pulse, and oxygen saturations were mo nitored continuously. The upper GI endoscopy was accomplished without difficulty. The patient tolerated the procedure well. Findings: The scope was passed directly into the upper esophagus and advanced to the third portion of the duodenum. The post bulbar duodenum had normal mucosa and conniventes and the ampulla was normal. There was minor scalloping of the conniventes in the bulb and biopsies were obtained from the bulb to rule out celiac disease. The scope was withdrawn through a moderately spastic pylorus into the stomach. There was some bile reflux and moderate amount of retained so lid food content in the fundus. There was mild reactive gastropathy and mild chronic gastritis. Biopsies were obtained from the lesser curvature and antrum. Upon retroflexion there was no hiatal hernia and the fundus and cardia were normal. The scope was then withdrawn into the esophagus. There was no evidence of reflux esophagitis or Vizcarra's. There were tertiary contractions and evidence of mild esophageal dysmotility. The remainder of the esophageal mucosa was normal. Impression: 1. Nonerosive GERD with moderate esophageal dysmotility 2. Retained gastric solid food content?rule out gastric dysmotility 3. Bile reflux with mild linear reactive gastropathy and mild chronic gastritis 4. Pylorospasm Plan: I do feel that the patient has pylorospasm and delayed gastric emptying. We will discuss treatment options which may include metoclopramide and neuromodulation (i.e. buspirone). I will follow-up the biopsies.
[2024-06-12 07:45] VITALS: BP 111/58; PULSE 81; RESP 18; TEMP 36.5; O2SAT 92
[2024-06-12 07:55] VITALS: BP 114/71; PULSE 86; RESP 18; O2SAT 100
[2024-06-12 08:05] VITALS: BP 129/73; PULSE 78; RESP 18; O2SAT 100
[2024-06-12 08:34] VITALS: BP 119/79; PULSE 67; RESP 18; O2SAT 98
== END 2024-06-12 08:34 | disposition home or self-care (01) ==
PROVIDERS: PCP Family Medicine; Visit Provider Internal Medicine Gastroenterology
PROC: 0DJ08ZZ Inspection of Upper Intestinal Tract, Via Natural or Artificial Opening Endoscopic (ICD-10-PCS; CPT 43239; principal; 2024-06-12 07:30)
DX: K31.3 Pylorospasm, not elsewhere classified (principal); K22.4 Dyskinesia of esophagus; K31.9 Disease of stomach and duodenum, unspecified; K29.70 Gastritis, unspecified, without bleeding; K21.9 Gastro-esophageal reflux disease without esophagitis; R10.13 Epigastric pain; R10.11 Right upper quadrant pain; R14.0 Abdominal distension (gaseous); R14.2 Eructation
CPT/HCPCS: 43239; J7120

== ENCOUNTER 2024-07-16 13:47 | Outpatient (CLI) | payer OTHER, SELFPAY ==
--- NOTE | 2024-07-16 14:06 | US_ITS ---
FINAL REPORT CLINICAL HISTORY: Inguinal pain -- follow up enlarged lymph node COMPARISON: Scrotal ultrasound 04/28/2024 FINDINGS: Limited sonographic images were obtained of the soft tissues in the right inguinal region at the area of interest. The elongated dominant lymph node in the right inguinal region measuring 42 x 5 mm is essentially unchanged. However, the lymph node is predominantly fatty with only thin cortical rim. This is considered benign in etiology. There are other smaller lymph nodes present. When correlated with recent CT scan, the dominant lymph node may represent 2 adjacent lymph nodes. IMPRESSION: Stable right inguinal adenopathy considered benign. Reviewed, Interpreted and Dictated by Prosper Deng MD Transcribed by Yaima Escoto Authenticated and [facility]
== END 2024-07-16 23:59 | disposition home or self-care (01) ==
LOC: RAD 13:48
PROVIDERS: PCP Family Medicine; Visit Provider Surgery
DX: R10.31 Right lower quadrant pain (principal)
CPT/HCPCS: 76882

== ENCOUNTER 2024-08-13 14:00 | Outpatient (CLI) | payer OTHER, SELFPAY ==
--- OUTSIDE RECORDS SUMMARY | 2024-08-13 14:02 | XMS_ITS | Data Portability ---
Author Organization [facility] [place] & ALINE Mary ADMIN Address [address] [place] [address] Care Team Providers Care Customer Service Administrator Name Role Phone REINA CASANOVA Primary Care Provider Assessment Encounter Date Assessment Date Assessment LastModified by Organization Details LastModified Time 06/27/2023 06/27/2023 Mr. Jenkins is a 23 yo gentleman with PMH of appendicitis s/p appendectomy (with necrotic appendix) who presents for evaluation of upper abdominal pain. 1. Epigastric and RUQ abdominal pain 2. Pain worse with eating 3. Nausea and vomiting with intermittent hematemesis - recurrent ER visits for severe excruciating abdominal pain - US abdomen which showed fatty liver. - Lipase and LFTs were normal. He has had intermittnet leukocytosis with WBC 17, was treated for a UTI. - had a CT A/P with IV contrast that showed mesenteric and retroperitoneal LAD, suspected 2/2 viral gastroenteritis at that time. Ddx: gastritis/ duodenitis/ esophagitis vs PUD vs chronic cholecystitis vs other PLAN: - start omeprazole 40 mg BID - avoid spicy and greasy foods if able - EGD for further evaluation adam - HIDA scan to look for chronic cholecystitis F/up in 3-4 weeks after procedure [email or web address] Not available 06/27/2023 14:22:45 Plan of Treatment Reminders Order Date Submit Date Provider Last Modified By Organization Details Last Modified Time Details Appointments None recorded. Lab None recorded. Referral None recorded. Procedures esophagogas troduodenos copy with biopsy (PROC) 2023 024 [facility] Not available 11:52:38 Surgeries None recorded. Imaging NM, hepatobilia ry scan, w/ CCK 2023 024 [facility] (Centralized Scheduling), [address], [place], [address], 4 15:44:28 Medication Orders omeprazole 40 mg capsule,del ayed release 2023 024 [facility], [address], [address], [place], [address], 4 09:31:54 Patient TargetsNo targets recorded. Patient InstructionsNo instructions recorded. Reason for Referral None Reported. Results Created Date Observation Date Name Description Value Unit Range Abnormal Flag Note LastModifiedBy Organization Detail LastModifiedTime 09/27/1909/27/2023 CBC AUTO NO DIFF (HEMO GRAM) WBC 14.7 K/uL 4.0-10 .5 high Not Available [facility] ([facility]) [address] , [place], [address], 09/27/2023 11:38:23 09/27/19 24 09/27/2023 CBC AUTO NO DIFF (HEMO GRAM) RBC 5.2 M/mm3 4.7-6. 1 Not Available [facility] ([facility]) [address] , [place], [address], 09/27/2023 11:38:23 09/27/19 24 09/27/2023 CBC AUTO NO DIFF (HEMO GRAM) HGB 15.7 gm/dL 13.5-1 8.0 Not Available [facility] ([facility]) [address] , [place], [address], 09/27/2023 11:38:23 09/27/19 24 09/27/2023 CBC AUTO NO DIFF (HEMO GRAM) HCT 45.3 % 42.0-5 2.0 Not Available [facility] ([facility]) [address] , [place], [address], 09/27/2023 11:38:23 09/27/19 24 09/27/2023 CBC AUTO NO DIFF (HEMO GRAM) MCV 87.3 fL 78-100 Not Available [facility] ([facility]) [address] , [place], [address], 09/27/2023 11:38:23 09/27/19 24 09/27/2023 CBC AUTO NO DIFF (HEMO GRAM) MCH 30.3 pg 27-31 Not Available [facility] ([facility]) [address] , [place], [address], 09/27/2023 11:38:23 09/27/19 24 09/27/2023 CBC AUTO NO DIFF (HEMO GRAM) MCHC 34.7 g/dL 32-36 Not Available [facility] ([facility]) [address] , [place], [address], 09/27/2023 11:38:23 09/27/19 24 09/27/2023 CBC AUTO NO DIFF (HEMO GRAM) RDW 12.9 % 11.5-1 4.0 Not Available [facility] ([facility]) [address], [place], [address], 09/27/2023 11:38:23 09/27/19 24 09/27/2023 CBC AUTO NO DIFF (HEMO GRAM) platelet count 383 K/uL 150-45 0 Not Available [facility] ([facility]) [address], [place], [address], 09/27/2023 11:38:23 09/27/19 24 09/27/2023 CBC AUTO NO DIFF (HEMO GRAM) MPV 9.5 fL 6-9.5 Not Available [facility] ([facility]) [address] , [place], [address], 09/27/2023 11:38:23 09/27/19 24 09/27/2023 CBC AUTO NO DIFF (HEMO GRAM) manual differential NO Not Available [facility] ([facility]) [address], [place], [address], 09/27/2023 11:38:23 09/27/19 24 09/27/2023 COMP METAB OLIC PANEL sodium 137 mmol/ L 136-14 5 Not Available [facility] ([facility]) [address], [place], [address], 09/27/2023 12:03:50 09/27/19 24 09/27/2023 COMP METAB OLIC PANEL potassium 3.5 mmol/ L 3.6-5. 0 low Not Available [facility] ([facility]) [address] , [place], [address], 09/27/2023 12:03:50 09/27/19 24 09/27/2023 COMP METAB OLIC PANEL chloride 103 mmol/ L 98-107 Not Available [facility] ([facility]) [address], [place], [address], 09/27/2023 12:03:50 09/27/19 24 09/27/2023 COMP METAB OLIC PANEL carbon dioxide 26.7 mmol/ L 21.0-3 2.0 Not Available [facility] ([facility]) [address], [place], [address], 09/27/2023 12:03:50 09/27/19 24 09/27/2023 COMP METAB OLIC PANEL anion gap 10.8 Not Available [facility]) [address] , [place], [address], 09/27/2023 12:03:50 09/27/19 24 09/27/2023 COMP METAB OLIC PANEL glucose 102 mg/dL 70-120 Not Available [facility] ([facility]) [address] , [place], [address], 09/27/2023 12:03:50 09/27/19 24 09/27/2023 COMP METAB OLIC PANEL BUN 8 mg/dL 7-18 Not Available [facility] ([facility]) [address], [place], [address], 09/27/2023 12:03:50 09/27/19 24 09/27/2023 COMP METAB OLIC PANEL creatinine 0.9 mg/dL 0.6-1. 3 Not Available [facility] ([facility]) [address], [place], [address], 09/27/2023 12:03:50 09/27/19 24 09/27/2023 COMP METAB OLIC PANEL glomerular filtration rate >60 mlper min 60- Not Available [facility] ([facility]) [address], [place], [address], 09/27/2023 12:03:50 09/27/19 24 09/27/2023 COMP METAB OLIC PANEL total protein 7.9 g/dL 6.4-8. 2 Not Available [facility] ([facility]) [address] , [place], [address], 09/27/2023 12:03:50 09/27/19 24 09/27/2023 COMP METAB OLIC PANEL albumin 4.0 g/dL 3.4-5. 0 Not Available [facility] ([facility]) [address], [place], [address], 09/27/2023 12:03:50 09/27/19 24 09/27/2023 COMP METAB OLIC PANEL globulin 3.9 Not Available [facility] ([facility]) [address] , [place], [address], 09/27/2023 12:03:50 09/27/19 24 09/27/2023 COMP METAB OLIC PANEL alb/glob ratio 1.0 0.7-2 Not Available [facility] ([facility]) [address] , [place], [address], 09/27/2023 12:03:50 09/27/19 24 09/27/2023 COMP METAB OLIC PANEL calcium 9.0 mg/dL 8.5-10 .5 Not Available [facility] ([facility]) [address], [place], [address], 09/27/2023 12:03:50 09/27/19 24 09/27/2023 COMP METAB OLIC PANEL bilirubin total 0.40 mg/dL 0.10-1 .00 Not Available [facility] ([facility]) [address], [place], [address], 09/27/2023 12:03:50 09/27/19 24 09/27/2023 COMP METAB OLIC PANEL AST (SGOT) 11 U/L 0-37 Not Available [facility] ([facility]) [address], [place], [address], 09/27/2023 12:03:50 09/27/19 24 09/27/2023 COMP METAB OLIC PANEL ALT (SGPT) 25 U/L 0-65 Not Available [facility] ([facility]) [address], [place], [address], 09/27/2023 12:03:50 09/27/19 24 09/27/2023 COMP METAB OLIC PANEL alk phosphatase 71 U/L 46-116 Not Available [facility] ([facility]) [address], [place], [address], 09/27/2023 12:03:50 10/03/19 24 10/10/2023 PATHO LOGY SPECI MEN pathology specimen SEE DONELL RITTER Not Available [facility] ([facility]) [address], [place], [address], 10/10/2023 12:13:02 07/18/19 24 07/16/2023 NM, hepat obili stephanie scan, w/ CCK No observ ation record ed. [email or web address] [facility] (Centralized Scheduling) [address], [place], [address], 08/01/2023 12:31:54 09/25/19 24 NM, hepat obili stephanie scan, w/ CCK No observ ation record ed. [email or web address] Not Available 2023 07:59:39 Result Notes None recorded. Procedures Surgical History Date Name Laterality Status Provider Name and Address Organization Details Recorded Time 10/03/19 24 Cholecystectomy completed Jameson Meeks [facility] [place] 10/10/2023 08:22:36 04/16/19 23 Appendectomy completed Jameson Meeks [facility] [place] 09/27/2023 10:15:03 Imaging Results Imaging Date Name Status LastModified by Organization Details LastModified Time 07/16/2023 NM, hepatobiliary scan, w/ CCK completed [email or web address] [facility] (Centralized Scheduling) [address] , [place], [address], 08/01/2023 12:31:54 09/25/2023 NM, hepatobiliary scan, w/ CCK completed [email or web address] Information not available 09/25/2023 07:59:39 Procedure Notes None recorded. Medical Equipment None Reported. Allergies Allergen ID Allergen Name Allergen Category Reaction Reaction Severity Criticality Documentation Date Start Date Code Code System Note Provider Name and Address Organization Details Recorded Time 645871 Product containin g penicilli n (product) medicatio n Not available Not available Not available 06/27/2023 31998 8001 SNOMED Luislala Yanceymarli caruso [facility] [place] 08:48:47 Medications Name Sig Start Date Stop Date Status Note LastModified by Organization Details LastModified Time sulfamethox azole 800 mg-trimetho prim 160 mg tablet Take 1 tablet every 12 hours by oral route for 7 days. active Not Available Not Available No t Available omeprazole 40 mg capsule,del ayed release Take by oral route for 30 days. active Not Available Not Available No t Available acetaminoph en ER 650 mg tablet,exte nded release active Not Available Not Available Not Available oxycodone-a cetaminophe n 5 mg-325 mg tablet active Not Available Not Available No t Available pantoprazol e 40 mg tablet,walter yed release Take by oral route for 30 days. active Not Available Not Available No t Available esomeprazol e magnesium 40 mg capsule,del ayed release Take by oral route for 30 days. active Not Available Not Available No t Available ibuprofen 600 mg tablet active Not Available Not Available Not Available ondansetron 4 mg disintegrat ing tablet Place 2 tablets twice a day by transling ual route. active Not Available Not Available No t Available cefdinir 300 mg capsule 09/25 completed Not Available Not Available Not Available clotrimazol e 1 % topical cream 09/25 completed Not Available Not Available Not Available Ventolin HFA 90 mcg/actuati on aerosol inhaler active Not Available Not Available Not Available Vitals Date Recorded Body weight Body mass index (BMI) Body height Body temperature Oxygen saturation Oxygen saturation in Arterial blood by Pulse oximetry Heart rate Heart rate Systolic blood pressure Diastolic blood pressure Provider Name and Address Organization Details Last Updated DateTime 4 08886.7 9 g 31.2 kg/m2 175.26 cm 98.4 [degF] 98 % 98 % 77 /min 72 /min 128 mm[Hg] 83 mm[Hg] Kalyn Yancey [facility] 4 08:48:38 Date Recorded Body height Body mass index (BMI) Body weight Body temperature Oxygen saturation Oxygen saturation in Arterial blood by Pulse oximetry Heart rate Systolic blood pressure Diastolic blood pressure Provider Name and Address Organization Details Last Updated DateTime 4 175.26 cm 31.7 kg/m2 76626.3 6 g 98.2 [degF] 98 % 98 % 90 /min 138 mm[Hg] 90 mm[Hg] Jameson Meeks [facility] [place] 4 10:22:57 Date Recorded Body height Body mass index (BMI) Body weight Body temperature Oxygen saturation Oxygen saturation in Arterial blood by Pulse oximetry Heart rate Systolic blood pressure Diastolic blood pressure Provider Name and Address Organization Details Last Updated DateTime 4 175.26 cm 33.1 kg/m2 985041. 69 g 97.8 [degF] 99 % 99 % 101 /min 142 mm[Hg] 72 mm[Hg] Jameson Meeks [facility] [place] 10:24:54 Social History Question Answer Notes LastModified by Organizat ion Details LastModified Time Tobacco Smoking Status Current Every Day Smoker Kalyn Yancey [facility], [facility] [place] 06/27/2023 08:51:11 Do You Have An Advance Directive? No [email or web address] Information not available 09/27/2023 What Is Your Level Of Alcohol Consumption? Occasional [email or web address] Information not available 09/27/2023 Are You Blind Or Do You Have Difficulty Seeing? No [email or web address] Information not available 09/27/2023 What Is Your Level Of Caffeine Consumption? None [email or web address] Information not available 06/27/2023 Do You Or Have You Ever Used E-cigarettes Or Vape? Former User Of Electronic Cigarettes [email or web address] Information not available 06/27/2023 What Was The Date Of Your Most Recent Tobacco Screening? 09/26/2023 [email or web address] Information not available 09/27/2023 Are You Passively Exposed To Smoke? Yes [email or web address] Information no t available 09/27/2023 Do You Or Have You Ever Used Smokeless Tobacco? Former Smokeless Tobacco User [email or web address] Information not available 09/27/2023 How Much Tobacco Do You Smoke? 1 PPD [email or web address] Information not available 09/27/2023 Do You Feel Stressed (tense, Restless, Nervous, Or Anxious, Or Unable To Sleep At Night)? [id number] [email or web address] Information not available 09/27/2023 Do You Use Any Illicit Or Recreational Drugs? No [email or web address] Information not available 06/27/2023 How Many Years Have You Smoked Tobacco? 6 Information not available 09/27/2023 Do You Or Have You Ever Used Any Other Forms Of Tobacco Or Nicotine? Yes [email or web address] Information not available 06/27/2023 Sex: Male Functional Status Question Answer Note LastModified by Organization D etails LastModified Time What is your exercise level? None [email or web address] Information not available 09/27/2023 Mental Status None recorded. Family History Relationship Description Onset Age of this Age Resolved Age Notes LastModified by Organization Details LastModified Time Paternal Grandmother Diabetes mellitus [email or web address] Not available 2023 10:24:04 Medical History Condition Response None Y Immunizations Vaccine Type Date Status Note Provider Nam e and Address Organization Details Recorded Time Influenza, split virus, quadrivalent, preservative 6 completed Jameson Meeks [place], [place] [facility] [place] [facility] [place] 09/25/2023 07:59:54 Influenza, split virus, quadrivalent, preservative 9 completed Jameson Meeks [place] [facility] [place] [facility] [place] 09/25/2023 07:59:54 Influenza, split virus, quadrivalent, preservative 5 completed Jameson Meeks [place] [facility] [place] 09/25/2023 07:59:54 Hib, unspecified formulation 3 completed Jameson Meeks [place] [facility] [place] [facility] [place] 09/25/2023 07:59:54 Hib, unspecified formulation 4 completed Jameson Meeks [place] [facility] [place] [facility] [place] 09/25/2023 07:59:54 Hib, unspecified formulation 3 completed Jameson Mee[place] [facility] [place] [facility] [place] 09/25/2023 07:59:54 Hib, unspecified formulation 2 completed Jameson Meeks [place] [facility] [place] [facility] [place] 09/25/2023 07:59:54 HPV9 8 completed Jameson Mee[place] [facility] [place] [facility] [place] 09/25/2023 07:59:54 meningococcal ACWY, unspecified formulation 5 completed Jameson Meeks [place] [facility] [place] 09/25/2023 07:59:54 MMR 4 completed Jameson Mee[place] [facility] [place] [facility] [place] 09/25/2023 07:59:54 MMR 6 completed Jameson Mee[place] [facility] [place] 09/25/2023 07:59:54 COVID-19, mRNA, LNP-S, PF, 100 mcg/0.5mL dose or 50 mcg/0.25mL dose 1 completed Jameson Meeks [place] [facility] [place] 09/25/2023 07:59:54 COVID-19, mRNA, LNP-S, PF, 100 mcg/0.5mL dose or 50 mcg/0.25mL dose 2 completed Jameson Meeks [place] [facility] [place] 09/25/2023 07:59:54 Tdap 5 completed Jameson Mee[place] [facility] [place] [facility] [place] 09/25/2023 07:59:54 varicella 5 completed Jameson Meeks [place] [facility] [place] [facility] [place] 09/25/2023 07:59:54 varicella 3 completed Jameson Mee[place] [facility] [place] 09/25/2023 07:59:54 polio, unspecified formulation 3 completed Jameson M[place] [facility] [place] [facility] [place] 09/25/2023 07:59:54 polio, unspecified formulation 3 completed Jameson M[place] [facility] [place] 09/25/2023 07:59:54 polio, unspecified formulation 6 completed Jameson M[place] [facility] [place] 09/25/2023 07:59:54 polio, unspecified formulation 2 completed Jameson M[place] [facility] [place] [facility] [place] 09/25/2023 07:59:54 HPV, quadrivalent 5 completed Jameson M[place] [facility] [place] 09/25/2023 07:59:54 Hep B, adolescent or pediatric 3 completed Jameson M[place] [facility] [place] 09/25/2023 07:59:54 Hep B, adolescent or pediatric 2 completed Jameson M[place] [facility] [place] 09/25/2023 07:59:54 Hep B, adolescent or pediatric 2 completed Jameson M[place] [facility] [place] 09/25/2023 07:59:54 Hep A, adult 8 completed Jameson M[place] [facility] [place] 09/25/2023 07:59:54 meningococcal MCV4P 0 completed Jameson M[place] [facility] [place] 09/25/2023 07:59:54 DTaP, unspecified formulation 3 completed Jameson M[place] [facility] [place] 09/25/2023 07:59:54 DTaP, unspecified formulation 4 completed Jameson M[place] [facility] [place] [facility] [place] 09/25/2023 07:59:54 DTaP, unspecified formulation 3 completed Jameson M[place] [facility] [place] 09/25/2023 07:59:54 DTaP, unspecified formulation 6 completed [place] [facility] [place] 09/25/2023 07:59:54 DTaP, unspecified formulation 2 completed Jameson M[place] [facility] [place] 09/25/2023 07:59:54 meningococcal MCV4, unspecified formulation 5 completed Jameson M[place] [facility] [place] 09/25/2023 07:59:54 Influenza, split virus, quadrivalent, PF 9 completed Jameson M[place] [facility] [place] 09/25/2023 07:59:54 Hep A, unspecified formulation 8 completed Jameson M[place] [facility] [place] 09/25/2023 07:59:54 Hep A, unspecified formulation 5 completed Jameson M[place] [facility] [place] 09/25/2023 07:59:54 Past Encounters Encounter ID Performer Location Encounter Start Date Encounter Closed Date Diagnosis/Indication Diagnosis SNOMED-CT Code Diagnosis ICD10 Code Diagnosis Note [id number] Rory Simon MD [facility] [address] [place] [address] 06/27/2023 08:34:05 06/27/2023 09:21:03 Abdominal pain 85127833 R10.9 [id number] Brittany Mistry MD [facility] General Surgery [address] [place] [address],[address] [place] [address] 09/27/2023 10:12:16 09/27/2023 11:01:30 Biliary dyskinesia 259663137 K82.8 symptomati c biliary dyskinesia with severe nausea and vomiting. I have scheduled the patient for robotic assisted laparoscop ic multiport cholecyste ctomy. Informed consent was obtained. Risks and benefits of the procedure, including but not limited to, bleeding, infection, damage to surroundin g structures and ongoing symptoms were discussed. Standard of care efforts are taken to minimize risks. Typical hospital stay and recovery were reviewed. The typical postoperat mary jane pain regimen and avoidance of narcotics were discussed. The patient verbalized understand ing of the plan including the risks and benefits. Appropriat e preoperati ve testing as clinically indicated were ordered as a part of this patient's care. Nausea and vomiting 1693 1999 R11.2 [id number] Brittany Mistry MD [facility] General Surgery [address] [place] [address],[address] [place] [address] 10/15/2023 10:20:35 10/15/2023 10:36:38 Chronic cholecystitis with calculus 55583567 K80.10 Stable postop. No restrictio ns. Was given work release. F/U with me PRN. Health Concerns Section Related Observation LastModified by Organization Detai ls LastModified Time None Recorded Concern Status LastModified by Organization Details LastModified Time None Recorded Advance Directives Directive N: Payers Encounter Date Sequence Insurance Name Policy Number Policy Emery Covered Member ID Emery Member ID Guarantor Name 06/27/2023 1 [employer] [facility] (MEDICAID HMO) [place] Christian True [id number] Jose Jenkins 09/27/2023 1 [employer] [facility] (MEDICAID HMO) [place] Jenkins [id number] Jose Jenkins 10/15/2023 1 [employer] [facility] (MEDICAID HMO) [place] Jenkins [id number] Jose Jenkins Notes Date Note Type Note Provider Name and Address Organization Details Recorded Time 06/27/2023 text/html Mr. Jenkins is a 23 yo gentleman with PMH of appendicitis s/p appendectomy (with necrotic appendix) who presents for evaluation of upper abdominal pain. He reports that he has been having epigastric and RUQ abdominal pain since the beginning of the year. The pain was initially constant but is now coming and going, worse with eating food. Better with bowel movements. No relationship to position. He denies associated hematochezia or melena but does have intermittnet nausea and vomiting with streaks of blood/ hematemesis. He subsists mainly on fast food living with his dad, and eats mostly greasy/ fried or spicy foods. He has cut back on hot sauce due to worsening of pain with spicy food. He intermittently has diarrhea but reports 1-2 mostly formed BMs per day. He has been in and out of the ER numerous times in the past 2 months with the pain being severe. He had an US abdomen which showed fatty liver. Lipase and LFTs were normal. He has had intermittnet leukocytosis with WBC 17, was treated for a UTI. He had a CT A/P with IV contrast that showed mesenteric and retroperitoneal LAD, suspected 2/2 viral gastroenteritis at that time. FH: no FH of GI cancers or IBD. Rory Simon MD [address], [place], [address], [facility] - [place] & [place] 06/27/2023 14:23:03 09/27/2023 text/html 23 Year old man referred for biliary dyskinesia. Patient has had intermittent bouts of sharp, severe right upper quadrant and epigastric pain that is generally postprandial and he has had associated nausea and loose stools. He has had numerous visits to the emergency department and the symptoms are becoming progressively worse. HIDA scan shows ejection fraction of 16% and reproduced his symptoms. MD Angel [address], [place], [address], [facility] & [place] 09/27/2023 11:06:40 10/15/2023 text/html Two weeks status post robotic cholecystectomy. Pathology showed gallstones and chronic cholecystitis. He has some occasional self-limited discomfort at the incision sites. Brittany Mistry MD [address], [place], [address], [place] [facility] [place] 10/15/2023 10:51:52
--- NOTE | 2024-08-13 14:15 | US_ITS ---
FINAL REPORT TECHNIQUE: Ultrasound images of the testicles were obtained bilaterally. Color Doppler images were obtained. CLINICAL HISTORY: testicular pain COMPARISON: None FINDINGS: The testicles are normal in size. Arterial flow is identified bilaterally. There is a 3 mm cyst in the left epididymal head and small cyst in the right epididymal head measuring up to 3 mm. There are small hydroceles bilaterally. IMPRESSION: Small epididymal cysts bilaterally. Small bilateral hydroceles. Reviewed, Interpreted and Dictated by Gerardo Real MD Transcribed by Yaima Escoto Authenticated and [facility]
== END 2024-08-13 23:59 | disposition home or self-care (01) ==
LOC: RAD 14:00
PROVIDERS: PCP Family Medicine; Visit Provider Urology
DX: R10.13 Epigastric pain (principal); N50.819 Testicular pain, unspecified
CPT/HCPCS: 76870

== ENCOUNTER 2024-08-20 14:01 | Outpatient (POV) | payer OTHER, SELFPAY ==
--- OUTSIDE RECORDS SUMMARY | 2024-08-20 14:05 | XMS_ITS | Data Portability ---
Author Organization [facility] [place] & ALINE Mary ADMIN Address [address] [place] [id number] Care Team Providers Care Greenkeeper Name Role Phone REINA CASANOVA Primary Care Provider [phone] Assessment Encounter Date Assessment Date Assessment LastModified [...] hepatobilia ry scan, w/ CCK 2023 024 [facility] (Centralized Scheduling), [address], [place], [address], 4 15:44:28 Medication Orders omeprazole 40 mg capsule,del ayed release 2023 024 [facility], [address], [address], [place], [address], 4 09:31:54 Patient TargetsNo targets recorded. Patient InstructionsNo instructions recorded. Reason for Referral None Reported. Results Created Date Observation Date Name Description Value Unit Range Abnormal Flag Note LastModifiedBy Organization Detail LastModifiedTime 09/27/1909/27/2023 CBC AUTO NO DIFF (HEMO GRAM) WBC 14.7 K/uL 4.0-10 .5 high Not Available [facility] ([facility]) [address] , [place], [address], 09/27/2023 11:38:23 09/27/19 24 09/27/2023 CBC AUTO NO DIFF (HEMO GRAM) RBC 5.2 M/mm3 4.7-6. 1 Not Available [facility] ([facility]) [address] , [place], [address], 09/27/2023 11:38:23 09/27/19 24 09/27/2023 CBC AUTO NO DIFF (HEMO GRAM) HGB 15.7 gm/dL 13.5-1 8.0 Not Available [facility] ([facility]) [address] , [place], [address], 09/27/2023 11:38:23 09/27/19 24 09/27/2023 CBC AUTO NO DIFF (HEMO GRAM) HCT 45.3 % 42.0-5 2.0 Not Available [facility] ([facility]) [address] , [place], [address], 09/27/2023 11:38:23 09/27/19 24 09/27/2023 CBC AUTO NO DIFF (HEMO GRAM) MCV 87.3 fL 78-100 Not Available [facility] ([facility]) [address] , [place], [address], 09/27/2023 11:38:23 09/27/19 24 09/27/2023 CBC AUTO NO DIFF (HEMO GRAM) MCH 30.3 pg 27-31 Not Available [facility] ([facility]) [address] , [place], [address], 09/27/2023 11:38:23 09/27/19 24 09/27/2023 CBC AUTO NO DIFF (HEMO GRAM) MCHC 34.7 g/dL 32-36 Not Available [facility] ([facility]) [address] , [place], [address], 09/27/2023 11:38:23 09/27/19 24 09/27/2023 CBC AUTO NO DIFF (HEMO GRAM) RDW 12.9 % 11.5-1 4.0 Not Available [facility] ([facility]) [address], [place], [address], 09/27/2023 11:38:23 09/27/19 24 09/27/2023 CBC AUTO NO DIFF (HEMO GRAM) platelet count 383 K/uL 150-45 0 Not Available [facility] ([facility]) [address], [place], [address], 09/27/2023 11:38:23 09/27/19 24 09/27/2023 CBC AUTO NO DIFF (HEMO GRAM) MPV 9.5 fL 6-9.5 Not Available [facility] ([facility]) [address] , [place], [address], 09/27/2023 11:38:23 09/27/19 24 09/27/2023 CBC AUTO NO DIFF (HEMO GRAM) manual differential NO Not Available [facility] ([facility]) [address], [place], [address], 09/27/2023 11:38:23 09/27/19 24 09/27/2023 COMP METAB OLIC PANEL sodium 137 mmol/ L 136-14 5 Not Available [facility] ([facility]) [address], [place], [address], 09/27/2023 12:03:50 09/27/19 24 09/27/2023 COMP METAB OLIC PANEL potassium 3.5 mmol/ L 3.6-5. 0 low Not Available [facility] ([facility]) [address] , [place], [address], 09/27/2023 12:03:50 09/27/19 24 09/27/2023 COMP METAB OLIC PANEL chloride 103 mmol/ L 98-107 Not Available [facility] ([facility]) [address], [place], [address], 09/27/2023 12:03:50 09/27/19 24 09/27/2023 COMP METAB OLIC PANEL carbon dioxide 26.7 mmol/ L 21.0-3 2.0 Not Available [facility] ([facility]) [address], [place], [address], 09/27/2023 12:03:50 09/27/19 24 09/27/2023 COMP METAB OLIC PANEL anion gap 10.8 Not Available [facility] ([facility]) [address] , [place], [address], 09/27/2023 12:03:50 09/27/19 24 09/27/2023 COMP METAB OLIC PANEL glucose 102 mg/dL 70-120 Not Available [facility] ([facility]) [address] , [place], [address], 09/27/2023 12:03:50 09/27/19 24 09/27/2023 COMP METAB OLIC PANEL BUN 8 mg/dL 7-18 Not Available [facility] ([facility]) [address], [place], [address], 09/27/2023 12:03:50 09/27/19 24 09/27/2023 COMP METAB OLIC PANEL creatinine 0.9 mg/dL 0.6-1. 3 Not Available [facility] ([facility]) [address], [place], [address], 09/27/2023 12:03:50 09/27/19 24 09/27/2023 COMP METAB OLIC PANEL glomerular filtration rate >60 mlper min 60- Not Available [facility] ([facility]) [address], [place], [address], 09/27/2023 12:03:50 09/27/19 24 09/27/2023 COMP METAB OLIC PANEL total protein 7.9 g/dL 6.4-8. 2 Not Available [facility] ([facility]) [address] , [place], [address], 09/27/2023 12:03:50 09/27/19 24 09/27/2023 COMP METAB OLIC PANEL albumin 4.0 g/dL 3.4-5. 0 Not Available [facility] ([facility]) [address], [place], [address], 09/27/2023 12:03:50 09/27/19 24 09/27/2023 COMP METAB OLIC PANEL globulin 3.9 Not Available [facility] ([facility]) [address] , [place], [address], 09/27/2023 12:03:50 09/27/19 24 09/27/2023 COMP METAB OLIC PANEL alb/glob ratio 1.0 0.7-2 Not Available [facility] ([facility]) [address] , [place], [address], 09/27/2023 12:03:50 09/27/19 24 09/27/2023 COMP METAB OLIC PANEL calcium 9.0 mg/dL 8.5-10 .5 Not Available [facility] ([facility]) [address], [place], [address], 09/27/2023 12:03:50 09/27/19 24 09/27/2023 COMP METAB OLIC PANEL bilirubin total 0.40 mg/dL 0.10-1 .00 Not Available [facility] ([facility]) [address], [place], [address], 09/27/2023 12:03:50 09/27/19 24 09/27/2023 COMP METAB OLIC PANEL AST (SGOT) 11 U/L 0-37 Not Available [facility] ([facility]) [address], [place], [address], 09/27/2023 12:03:50 09/27/19 24 09/27/2023 COMP METAB OLIC PANEL ALT (SGPT) 25 U/L 0-65 Not Available [facility] ([facility]) [address], [place], [address], 09/27/2023 12:03:50 09/27/19 24 09/27/2023 COMP METAB OLIC PANEL alk phosphatase 71 U/L 46-116 Not Available [facility] ([facility]) [address], [place], [address], 09/27/2023 12:03:50 10/03/19 24 10/10/2023 PATHO LOGY SPECI MEN pathology specimen SEE DONELL RITTER Not Available [facility] ([facility]) [address], [place], [address], 10/10/2023 12:13:02 07/18/19 24 07/16/2023 NM, hepat obili stephanie scan, w/ CCK No observ ation record ed. [email or web address] [facility] (Centralized Scheduling) [address], [place], [address], 08/01/2023 12:31:54 09/25/19 24 NM, hepat obili stephanie scan, w/ CCK No observ ation record ed. [email or web address] Not Available 2023 07:59:39 Result Notes None recorded. Procedures Surgical History Date Name Laterality Status Provider Name and Address Organization Details Recorded Time 10/03/19 24 Cholecystectomy completed Jameson Meeks [facility] & [place] 10/10/2023 08:22:36 04/16/19 23 Appendectomy completed Jameson Meeks [facility] [place] 09/27/2023 10:15:03 Imaging Results Imaging Date Name Status LastModified by Organization Details LastModified Time 07/16/2023 NM, hepatobiliary scan, w/ CCK completed [email or web address] [facility] (Centralized Scheduling) [address] , [place], [address], 08/01/2023 12:31:54 09/25/2023 NM, hepatobiliary scan, w/ CCK completed [email or web address] Information not available 09/25/2023 07:59:39 Procedure Notes None recorded. Medical Equipment None Reported. Allergies Allergen ID Allergen Name Allergen Category Reaction Reaction Severity Criticality Documentation Date Start Date Code Code System Note Provider Name and Address Organization Details Recorded Time 399032 Product containin g penicilli n (product) medicatio n Not available Not available Not available 06/27/2023 37821 8001 SNOMED Luislala Yanceymarli caruso [facility] [place] 08:48:47 Medications Name Sig Start Date Stop [...] Address Organization Details Last Updated DateTime 4 92089.7 9 g 31.2 kg/m2 175.26 cm 98.4 [degF] 98 % 98 % 77 /min 72 /min 128 mm[Hg] 83 mm[Hg] Kalyn Yancey [facility] 4 08:48:38 Date Recorded Body height Body mass index (BMI) Body weight Body temperature Oxygen saturation Oxygen saturation in Arterial blood by Pulse oximetry Heart rate Systolic blood pressure Diastolic blood pressure Provider Name and Address Organization Details Last Updated DateTime 4 175.26 cm 31.7 kg/m2 38977.3 6 g 98.2 [degF] 98 % 98 % 90 /min 138 mm[Hg] 90 mm[Hg] Jameson Meeks [facility] [place] 4 10:22:57 Date Recorded Body height Body mass index (BMI) Body weight Body temperature Oxygen saturation Oxygen saturation in Arterial blood by Pulse oximetry Heart rate Systolic blood pressure Diastolic blood pressure Provider Name and Address Organization Details Last Updated DateTime 4 175.26 cm 33.1 kg/m2 128116. 69 g 97.8 [degF] 99 % 99 % 101 /min 142 mm[Hg] 72 mm[Hg] Jameson Meeks [facility] & [place] 10:24:54 Social History Question Answer Notes LastModified by Organizat ion Details LastModified Time Tobacco Smoking Status Current Every Day Smoker Kalyn Yancey [facility] [place] 06/27/2023 08:51:11 Do You Have An Advance Directive? No [email or web address] Information not available 09/27/2023 What Is Your Level Of Alcohol Consumption? Occasional Information not available 09/27/2023 Are You Blind Or Do You Have Difficulty Seeing? No Information not available 09/27/2023 What Is Your Level Of Caffeine Consumption? None Information not available 06/27/2023 Do You Or Have You Ever Used E-cigarettes Or Vape? Former User Of Electronic Cigarettes [email or web address] Information not available 06/27/2023 What Was The Date Of Your Most Recent Tobacco Screening? 09/26/2023 [email or web address] Information not available 09/27/2023 Are You Passively Exposed To Smoke? Yes Information no t available 09/27/2023 Do You Or Have You Ever Used Smokeless Tobacco? Former Smokeless Tobacco User [email or web address] Information not available 09/27/2023 How Much Tobacco Do You Smoke? 1 PPD [email or web address] Information not available 09/27/2023 Do You Feel Stressed (tense, Restless, Nervous, Or Anxious, Or Unable To Sleep At Night)? [id number] [email or web address] Information not available 09/27/2023 Do You Use Any Illicit Or Recreational Drugs? No [email or web address] Information not available 06/27/2023 How Many Years Have You Smoked Tobacco? 6 [email or web address] Information not available 09/27/2023 Do You Or Have You Ever Used Any Other Forms Of Tobacco Or Nicotine? Yes [email or web address] Information not available 06/27/2023 Sex: Male Functional Status Question Answer Note LastModified by Organization D etails LastModified Time What is your exercise level? None [email or web address] Information not available 09/27/2023 Mental Status None recorded. Family History Relationship Description Onset Age of this Age Resolved Age Notes LastModified by Organization Details LastModified Time Paternal Grandmother Diabetes mellitus [email or web address] Not available 2023 10:24:04 Medical History Condition Response None Y Immunizations Vaccine Type Date Status Note Provider Nam e and Address Organization Details Recorded Time Influenza, split virus, quadrivalent, preservative 6 completed Jameson Meeks [place], [place] [facility] [place] 09/25/2023 07:59:54 Influenza, split virus, quadrivalent, preservative 9 completed Jameson Meeks [place] [facility] [place] 09/25/2023 07:59:54 Influenza, split virus, quadrivalent, preservative 5 completed Jameson Mee[place] [facility] [place] 09/25/2023 07:59:54 Hib, unspecified formulation 3 completed Jameson Mee[place] [facility] [place] 09/25/2023 07:59:54 Hib, unspecified formulation 4 completed Jameson M[place] [facility] [place] 09/25/2023 07:59:54 Hib, unspecified formulation 3 completed Jameson M[place] [facility] [place] 09/25/2023 07:59:54 Hib, unspecified formulation 2 completed Jameson [place] [facility] [place] 09/25/2023 07:59:54 HPV9 8 completed Jameson M[place] [facility] [place] 09/25/2023 07:59:54 meningococcal ACWY, unspecified formulation 5 completed Jameson M[place] [facility] [place] 09/25/2023 07:59:54 MMR 4 completed Jameson [place] [facility] [place] 09/25/2023 07:59:54 MMR 6 completed Jameson [place] [facility] [place] 09/25/2023 07:59:54 COVID-19, mRNA, LNP-S, PF, 100 mcg/0.5mL dose or 50 mcg/0.25mL dose 1 completed Jameson M[place] [facility] [place] 09/25/2023 07:59:54 COVID-19, mRNA, LNP-S, PF, 100 mcg/0.5mL dose or 50 mcg/0.25mL dose 2 completed Jameson M[place] [facility] [place] 09/25/2023 07:59:54 Tdap 5 completed aJmeson Meeks [place] [facility] [place] 09/25/2023 07:59:54 varicella 5 completed Jameson [place] [facility] [place] 09/25/2023 07:59:54 varicella 3 completed Jameson [place] [facility] [place] 09/25/2023 07:59:54 polio, unspecified formulation 3 completed Jameson [place] [facility] [place] 09/25/2023 07:59:54 polio, unspecified formulation 3 completed [place]on [place] [facility] [place] 09/25/2023 07:59:54 polio, unspecified formulation 6 completed Jameson [place] [facility] [place] 09/25/2023 07:59:54 polio, unspecified formulation 2 completed [place] [facility] [place] 09/25/2023 07:59:54 HPV, quadrivalent 5 completed Jameson [place] [facility] [place] 09/25/2023 07:59:54 Hep B, adolescent or pediatric 3 completed Jameson [place] [facility] [place] 09/25/2023 07:59:54 Hep B, adolescent or pediatric 2 completed [place] [facility] [place] 09/25/2023 07:59:54 Hep B, adolescent or pediatric 2 completed [place] [facility] [place] 09/25/2023 07:59:54 Hep A, adult 8 completed Jameson [place] [facility] [place] 09/25/2023 07:59:54 meningococcal MCV4P 0 completed Jameson [place] [facility] [place] 09/25/2023 07:59:54 DTaP, unspecified formulation 3 completed [place]on [place] [facility] [place] 09/25/2023 07:59:54 DTaP, unspecified formulation 4 completed [place] [facility] [place] 09/25/2023 07:59:54 DTaP, unspecified formulation 3 completed [place] [facility] [place] 09/25/2023 07:59:54 DTaP, unspecified formulation 6 completed [place] [facility] [place] 09/25/2023 07:59:54 DTaP, unspecified formulation 2 completed [place]on [place] [facility] [place] 09/25/2023 07:59:54 meningococcal MCV4, unspecified formulation 5 completed [place]on [place] [facility] [place] 09/25/2023 07:59:54 Influenza, split virus, quadrivalent, PF 9 completed Jameson [place] [facility] [place] 09/25/2023 07:59:54 Hep A, unspecified formulation 8 completed [place] [facility] [place] 09/25/2023 07:59:54 Hep A, unspecified formulation 5 completed [place]on [place] [facility] [place] 09/25/2023 07:59:54 Past Encounters Encounter ID Performer Location Encounter Start Date Encounter Closed Date Diagnosis/Indication Diagnosis SNOMED-CT Code Diagnosis ICD10 Code Diagnosis Note [id number] Rory Simon MD [facility] [address] [place] [address] 06/27/2023 08:34:05 06/27/2023 09:21:03 Abdominal pain 71866961 R10.9 [id number] Brittany Mistry MD [facility] [address] [place] [address],[address] [place] [address] 09/27/2023 10:12:16 09/27/2023 11:01:30 Biliary dyskinesia 712082661 K82.8 symptomati c biliary dyskinesia with severe [...] care. Nausea and vomiting 1693 1999 R11.2 [id number] Brittany Mistry MD [facility] [address] [place] [address],[address] [place] [address] 10/15/2023 10:20:35 10/15/2023 10:36:38 Chronic cholecystitis with calculus 88819742 K80.10 Stable postop. No restrictio ns. Was given work release. F/U with me PRN. Health Concerns Section Related Observation LastModified by Organization Detai ls LastModified Time None Recorded Concern Status LastModified by Organization Details LastModified Time None Recorded Advance Directives Directive N: Payers Insurance Date Sequence Insurance Name Policy Number Policy Emery Covered Member ID Emery Member ID Guarantor Name 10/15/2023 1 [employer] [facility] (MEDICAID HMO) [place] Jenkins [id number] Jose Jenkins Notes Date Note Type Note [...] GI cancers or IBD. Rory Simon MD [address], [place], [address], [facility] 06/27/2023 14:23:03 09/27/2023 text/html 23 Year old [...] fraction of 16% and reproduced his symptoms. Brittany Mistry MD [address], [place], [address], [facility] 09/27/2023 11:06:40 10/15/2023 text/html Two weeks status post robotic cholecystectomy. Pathology showed gallstones and chronic cholecystitis. He has some occasional self-limited discomfort at the incision sites. MD Angel [address], [place], [address], [place] [facility] [place] [facility] [place] 10/15/2023 10:51:52
--- NOTE | 2024-08-20 14:38 | EXP.PAIN.OV ---
HPI Data of Consult Patient: new to practice Consult date: 08/20/24 Requesting Physician: Shahida Rutledge APRN Primary Care Provider: Joo Garcia MD Consult Narrative Reason for consult: Right groin pain, right testicular pain History of present illness: Mr. Jenkins is a 24 year old male who presents today as a new patient. He rates his pain today an 8 out of 10. He denies any initial trauma or injury that started his pain however he states that back in February he started having right sided groin pain. Patient states it is a sharp sensation that can be very random. He states certain positions or activities do seem aggravated such as picking up objects. He states that it has progressively worsened since February and that it is interfering with his ability to perform activities of daily living such as cooking and cleaning. He does state that it will radiate into his testicles along the right side. Patient has been seen by his primary care as well as general surgeon for possible hernia however has continued to have no acute findings. Patient does also make mention that he has seen urology and that they did find a couple of lymph nodes that were enlarged on the right side in his groin however they do believe they are benign. Patient is scheduled to see another urologist in [place] coming up. Patient has tried oral medication, heat and ice, topicals, at home stretching exercise for longer than 12 weeks. Patient denies any prior physical therapy or chiropractor therapy. Patient also denies any previous surgery or injections. Patient is interested in any help we may be able to provide. Patient does deny any heart or kidney issues. His Maxim has been reviewed. CC: Shahida Rutledge APRN [facility] Disclaimer: The information contained in this section may have been updated after the patient was seen, as this information can be updated by other users. Medical History Cholecystectomy planned Chest wall pain URI (upper respiratory infection) URI (upper respiratory infection) Exposure to COVID-19 virus Close exposure to COVID-19 virus Acute UTI (urinary tract infection) Vomiting Chest pain Abdominal pain Headache Nausea & vomiting Viral pneumonia Sinusitis Acute bronchitis Strep throat Low back strain Gastroenteritis Torticollis Asthma exacerbation Gastroenteritis Mesenteric lymphadenopathy High ankle sprain of left lower extremity Surgical History History of appendectomy Acute appendicitis Necrotic, suppurative and with near perforation Family History Other No significant family history Social History Smoking Status: Current every day smoker tobacco type: smokeless tobacco alcohol intake: never counseling provided: provider counseling substance use type: denies use current occupational status: unemployed Travel in the last 8 weeks?: None household members: family housing: house caffeine: Yes Review of Systems Review of Systems Review of systems:: pertinent systems reviewed and negative unless documented below Review of systems (narrative): Review of Systems: General: No recent weight changes, no fever, no sleep disturbances Respiratory: No cough, no shortness of air, no recurring pulmonary infections Cardiovascular/peripheral vascular: No chest pain, no palpitations, no edema, no shortness of breath Gastrointestinal: No new onset incontinence, normal bowel movements reported Genitourinary: No new onset incontinence Musculoskeletal: Right groin pain, right testicular pain Psychiatric: [Normal mood/affect] Neurological: [Denies weakness in extremities], [denies balance issues] Meds Home Medications and Allergies Home Medications ?Medication ?Instructions ?Recorded ?Confirmed ?Type pantoprazole 40 mg tablet,delayed 40 mg PO BID 02/04/24 08/18/24 History release psyllium seed (sugar) oral powder 1 tbsp PO DAILY 05/05/24 08/18/24 History (Metamucil (sugar) oral powder) buspirone 5 mg tablet 5 mg PO BID #60 tabs 06/12/24 08/18/24 Rx sulfamethoxazole 800 1 tab PO BID 14 days #28 tabs 08/11/24 08/18/24 Rx mg-trimethoprim 160 mg tablet (Bactrim DS) tamsulosin 0.4 mg capsule (Flomax) 0.4 mg PO DAILY #30 caps 08/11/24 08/18/24 Rx New Prescriptions to Start Prescriptions: Allergies Allergy/AdvReac Type Severity Reaction Status Date / Time Penicillins Allergy Hives Verified 08/18/24 14:05 Objective Narrative: Physical Exam: General: Alert and oriented x3, no acute distress, pleasant and cooperative Lungs: Respirations even and unlabored, symmetrical chest expansion Eyes: PERRL Musculoskeletal: Flexion and extension of lumbar [spine] somewhat guarded secondary to pain, tenderness with palpation, patient did have point tenderness along left SI with a positive right Collette's Neurological: Speech clear, no gross sensory deficit Assessment and Plan *Assessment and plan (1) Right groin pain: Status: Acute Category: Medical Code(s): R10.31 - Right lower quadrant pain (2) Right testicular pain: Status: Acute Category: Medical Code(s): N50.811 - Right testicular pain Plan Patient is experiencing worsening pain in his right groin that does radiate into his right testicle. Patient did have point tenderness during today's visit along with some point tenderness on his left SI however had a negative Collette's on the left side but a positive Collette's on the right side with no tenderness at the right SI joint with palpation. I did discuss with the patient in future that may be something we still need to evaluate additionally. Patient was counseled that I do believe he would benefit from a right inguinal nerve block. Risk and benefits were discussed with the patient and he would like to proceed forward with this plan of care. Patient has tried and failed oral medications, heat and ice, topicals, at home stretching exercise for longer than 12 weeks. Patient has also seen multiple specialties including primary care, general surgery and urology with no acute findings to explain his prolonged pain. This has been going on for longer than 7 months. Patient will also be ordered a compounded cream. Patient will be scheduled for a right inguinal nerve block. This will be done without fluoroscopic or ultrasound guidance. Patient has been instructed to contact the clinic with any concerns before the next appointment. Dr. Parmar has reviewed this note and agrees with this plan of care. This note was dictated using voice recognition software and make contain errors or omissions. All injections are used with Lidocaine, Bupivacaine and dexamethasone. Occasionally urine drug screen is needed to verify patient's compliance with our office pain contract. This is ordered based off specific treatments related to chronic pain with the potential to abuse certain medications.
[2024-08-20 15:52] VITALS: BP 114/66; PULSE 88; RESP 18; O2SAT 98; BMI 27.9
== END 2024-08-20 23:59 | disposition home or self-care (01) ==
LOC: SC.PAIN 14:02
PROVIDERS: PCP Family Medicine; Visit Provider Nurse Practitioner Family
DX: R10.31 Right lower quadrant pain (principal); N50.811 Right testicular pain; Z73.89 Other problems related to life management difficulty; F17.290 Nicotine dependence, other tobacco product, uncomplicated
CPT/HCPCS: 99202; G0463

== ENCOUNTER 2024-09-24 12:39 | Day surgery (SDC) | payer OTHER, SELFPAY ==
[2024-09-24 13:41] VITALS: BMI 29.5
[2024-09-24 13:45] VITALS: BP 133/60; PULSE 66; RESP 16; TEMP 36.2; O2SAT 100
[2024-09-24] MEDS: LACTATED RINGERS 1000ML 1,000 ML 50 ML IV (13:49)
--- NOTE | 2024-09-24 14:45 | P.PNANES_ITS ---
[facility] Disclaimer: The information contained in this section may have been updated after the patient was seen, as this information can be updated by other users. Medical History Cholecystectomy planned Chest wall pain URI (upper respiratory infection) URI (upper respiratory infection) Exposure to COVID-19 virus Close exposure to COVID-19 virus Acute UTI (urinary tract infection) Vomiting Chest pain Abdominal pain Headache Nausea & vomiting Viral pneumonia Sinusitis Acute bronchitis Strep throat Low back strain Gastroenteritis Torticollis Asthma exacerbation Gastroenteritis Mesenteric lymphadenopathy High ankle sprain of left lower extremity Surgical History (Updated 09/24/24 @ 13:43 by Stuart Weeks) Hx of cholecystectomy History of appendectomy Acute appendicitis Family History Other No significant family history Social History Smoking Status: Current every day smoker tobacco type: smokeless tobacco alcohol intake: never counseling provided: provider counseling substance use type: denies use current occupational status: unemployed Travel in the last 8 weeks?: None household members: family housing: house caffeine: Yes Have you lived/traveled outside [place] in past 30 days?: No Contact w/someone who lives/traveled outside US past 30 days?: No Exposure to someone with infectious disease in past 14 days?: No Do you have a fever (greater than 100.4 F or 38 C)?: No Have you tested positive for COVID-19?: No Exposed to someone with COVID-19 in past 14 days?: No Do you have a sore throat?: No Do you have a cough?: No Do you have any weakness?: No Do you have any diarrhea?: No Are you experiencing any unusual bleeding?: No Do you have any muscle aches/pain?: No Do you have any abdominal pain?: No Are you experiencing loss of taste or smell?: No [facility] Anesthesia Checklist Patient Identification Patient Identification: Verbal (Name & ) Structural Data Admitted From: Home Planned Operative Procedure/s: colonoscopy Consent for Planned Operative Procedure(s) Verified: Yes NPO Status Verified Time NPO: 00:00 Additional verifications Anesthesia Reactions: No Airway Assessment Mallampati Score:: Class II C-Spine Mobility Assessed: Yes TMJ Mobility Assessed: Yes Dentition: Good Dentition Neurological Assessment Level of Consciousness: Awake, Alert and Appropriate Anesthesia Plan Anesthesia Risk discussed: Yes Anesthesia Plan: Verified ASA Class: II Anesthesia Type: MAC
--- NOTE | 2024-09-24 15:05 | EXP.HP ---
History of Present Illness *Admission Date: 09/24/24 *History of present illness: Mr. Jenkins is a 24-year-old gentleman who is here for diagnostic colonoscopy secondary to constipation, bloating and right upper quadrant abdominal pain. The examination is deemed medically necessary for diagnostic colonoscopy. The patient has been seen, interviewed and examined prior to the procedure by both myself and the anesthesia provider. [facility] Disclaimer: The information contained in this section may have been updated after the patient was seen, as this information can be updated by other users. Medical History Cholecystectomy planned Chest wall pain URI (upper respiratory infection) URI (upper respiratory infection) Exposure to COVID-19 virus Close exposure to COVID-19 virus Acute UTI (urinary tract infection) Vomiting Chest pain Abdominal pain Headache Nausea & vomiting Viral pneumonia Sinusitis Acute bronchitis Strep throat Low back strain Gastroenteritis Torticollis Asthma exacerbation Gastroenteritis Mesenteric lymphadenopathy High ankle sprain of left lower extremity Surgical History (Updated 09/24/24 @ 13:43 by Stuart Weeks) Hx of cholecystectomy History of appendectomy Acute appendicitis Family History Other No significant family history Social History Smoking Status: Current every day smoker tobacco type: smokeless tobacco alcohol intake: never counseling provided: provider counseling substance use type: denies use current occupational status: unemployed Travel in the last 8 weeks?: None household members: family housing: house caffeine: Yes Have you lived/traveled outside [place] in past 30 days?: No Contact w/someone who lives/traveled outside US past 30 days?: No Exposure to someone with infectious disease in past 14 days?: No Do you have a fever (greater than 100.4 F or 38 C)?: No Have you tested positive for COVID-19?: No Exposed to someone with COVID-19 in past 14 days?: No Do you have a sore throat?: No Do you have a cough?: No Do you have any weakness?: No Do you have any diarrhea?: No Are you experiencing any unusual bleeding?: No Do you have any muscle aches/pain?: No Do you have any abdominal pain?: No Are you experiencing loss of taste or smell?: No Other Medical History Have you received the Flu Vaccine for this season: Yes Have you received the Pneumonia Vaccine: No Review of Systems Review of Systems Review of systems (narrative): Negative *Cardiovascular Comments: Negative *Gastrointestinal Comments: Negative *Genitourinary Comments: Negative *Musculoskeletal Comments: Negative *Neurologic Comments: Negative Meds Home Medications and Allergies Home Medications ?Medication ?Instructions ?Recorded ?Confirmed ?Type pantoprazole 40 mg tablet,delayed 40 mg PO BID 02/04/24 09/24/24 History release psyllium seed (sugar) oral powder 1 tbsp PO DAILY 05/05/24 09/24/24 History (Metamucil (sugar) oral powder) buspirone 5 mg tablet 5 mg PO BID #60 tabs 06/12/24 09/24/24 Rx tamsulosin 0.4 mg capsule (Flomax) 0.4 mg PO DAILY #30 caps 08/11/24 09/24/24 Rx polyethylene glycol 3350 17 17 g PO DAILY 09/10/24 09/24/24 History gram/dose oral powder (Miralax) New Prescriptions to Start Prescriptions: Allergies Allergy/AdvReac Type Severity Reaction Status Date / Time Penicillins Allergy Hives Verified 09/24/24 13:44 Exam Data for Last 24 hours Vital signs and Labs for Last 24 Hours: Temp Pulse Resp BP Pulse Ox O2 Del Method 97.1 F L 66 16 133/60 100 Room Air 09/24/24 13:45 09/24/24 13:45 09/24/24 13:45 09/24/24 13:45 09/24/24 13:45 09/24/24 13:45 I & O for Last 24 hours: Intake & Output 09/21/24 09/22/24 09/23/24 09/24/24 23:59 23:59 23:59 23:59 Weight 200 lb *Routine HEENT Exam Head: Present normocephalic Eye: Present EOMI and PERRL ENT: Present mucous membranes moist *Routine Neck Exam Neck: Present supple *Routine Respiratory Exam Respiratory: Present CTA bilaterally *Routine Cardiovascular Exam Cardiovascular: Present RRR *Routine Abdominal Exam Abdominal: Present soft and normoactive bowel sounds; Absent tenderness *Routine Rectal Exam Rectal:: deferred *Routine Genitalia Exam Genitalia:: deferred *Routine Extremities Exam Extremities: Absent cyanosis, clubbing or edema *Routine Skin Exam Skin: Present warm; Absent rash *Routine Neurological Exam Neurological: Present alert and oriented X3 Assessment and Plan *Assessment and plan (1) Constipation: Status: Acute Category: Medical Code(s): K59.00 - Constipation, unspecified (2) Bloating: Status: Acute Category: Medical Code(s): R14.0 - Abdominal distension (gaseous) (3) RUQ pain: Status: Acute Category: Medical Code(s): R10.11 - Right upper quadrant pain Plan A/P: 1. Constipation, bloating and right upper quadrant abdominal pain is the preprocedural diagnosis. The patient will be anesthetized/sedated using MAC sedation. The patient has been seen and examined. Cardiac and lung assessment prior to the examination is stable. Proceed with planned diagnostic colonoscopy.
--- NOTE | 2024-09-24 15:10 | HMH.PROCNOTE ---
[facility] Procedure Note Date: 09/24/24 Time: 15:24 Procedure Note:: Colonoscopy Procedure Report: Colonoscopy Endoscopist: Matthew Jim II, MD Referring physician: Deanna Gasca Date of Procedure: September 24, 2024 Equipment: Olympus 190 variable stiffness pediatric colonoscope Sedation: MAC sedation Indication: Mr. Jenkins is a 24-year-old gentleman who is here for diagnostic colonoscopy secondary to right upper quadrant abdominal pain, bloating and constipation. The patient's dyspeptic symptoms have improved with the Iberogast and buspirone twice daily. He also takes MiraLAX and Metamucil. He does occasionally get loose stools. He has had prior cholecystectomy. He has had some rectal pain. His uncle had colon cancer in his 60s. He reports no rectal bleeding. He has had a 10 to 15 pound weight loss in the last 3 months. Procedure: Prior to the procedure, a history and physical exam was performed, and patient's medications and allergies were reviewed. The risks, benefits and alternatives of the sedation and procedure were discussed with the patient. All questions were answered and informed consent was obtained. The patient was brought to the procedure room. Patient identification and proposed procedure were verified by the physician and the nurse. The patient was placed in a left lateral decubitus position and the scope was passed under direct vision. Throughout the procedure, the patient's blood pressure, pulse, and oxygen saturations were monitored continuously. The colonoscopy was accomplished without difficulty. The patient tolerated the procedure well. Findings: On digital rectal examination there was normal rectal tone. There were no external hemorrhoids. The colonoscope was introduced through the anal canal to the rectum and advanced to the cecum. The ileocecal valve and appendiceal orifice were identified. The scope was advanced a short distance into the ileum which appeared grossly normal. The scope was then withdrawn into the colon. The cecum, ascending, transverse, descending, sigmoid and rectum were grossly normal. There was some angulation at the hepatic flexure suggestive of hepatic flexure syndrome. There were no mucosal abnormalities identified. Upon retroflexion within the rectum there were grade 1-2 internal hemorrhoids. The preparation was excellent throughout with [place] Preparation Score of 9. The cecal time was 10 minutes. Impression: 1. 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 Hepatic flexure syndrome is a term used to describe bloating, muscle spasms of the colon and upper abdominal pain on the right side and is thought to be caused by trapped gas and stool at the hepatic flexure/curvature of the colon which is in the right upper colon. The pain can be excruciating and debilitating. I would continue the dietary measures, buspirone and fiber bowel regimen. I would consider additional treatment measures including prucalopride, diaphragmatic breathing and if persist, pelvic floor physical therapy.
[2024-09-24 15:27] VITALS: BP 99/56; PULSE 61; RESP 16; TEMP 36.7; O2SAT 97
[2024-09-24 15:37] VITALS: BP 103/51; PULSE 55; RESP 16; O2SAT 97
[2024-09-24 15:47] VITALS: BP 122/68; PULSE 55; RESP 16; O2SAT 97
[2024-09-24 15:55] VITALS: BP 116/69; PULSE 60; RESP 16; O2SAT 97
== END 2024-09-24 15:56 | disposition home or self-care (01) ==
PROVIDERS: PCP Family Medicine; Visit Provider Internal Medicine Gastroenterology
PROC: 0DJD8ZZ Inspection of Lower Intestinal Tract, Via Natural or Artificial Opening Endoscopic (ICD-10-PCS; CPT 45378; principal; 2024-09-24 14:30)
DX: K59.00 Constipation, unspecified (principal); R10.11 Right upper quadrant pain; R14.0 Abdominal distension (gaseous); K64.1 Second degree hemorrhoids; F17.290 Nicotine dependence, other tobacco product, uncomplicated; Z79.899 Other long term (current) drug therapy; Z90.49 Acquired absence of other specified parts of digestive tract; Z88.0 Allergy status to penicillin
CPT/HCPCS: 45378; J2003; J2704; J7120

== ENCOUNTER 2024-12-21 12:38 | Outpatient (CLI) | payer OTHER, SELFPAY ==
--- OUTSIDE RECORDS SUMMARY | 2024-11-12 08:30 | XMS_ITS | Encounter Summary ---
Author Organization Healthcare Address [address] [id number] Care Team Providers Care Ux Engineer Name Role Phone Chano Kidd MD Primary Care Provider [phone] Reason for Referral * Other Medical (Routine) - Closed Specialty Diagnoses / Procedures Referred By Yousif davey Referred To Contact Urology Diagnoses Dysuria Procedures Cysto- Urology Salomón Escoto MD [address] [address] Phone: tel: fax: Referral ID Status Reason Start Date Expiration Date Visits Re quested Visits Authorized [id number] Closed 11/12/2024 05/14/2026 1 1 Encounter Details Date Type Department Care Team ([facility] Contact Info) Description 11/12/2024 8:30 AM EDT Consult Medical Office Building Urology [address] [facility], [address] [place] [address] Salomón Escoto MD [address] [address] Dysuria (Primary Dx); Bilirubinuria Social History Tobacco Use Types Packs/Day Years Used Date Smoking Tobacco: Every Day Smokeless Tobacco: Former Chew Tobacco Cessation:Ready to Q uit: Not Asked; Counseling Given: Not Answered Alcohol Use Standard Drinks/Week Comments Never 0 (1 standard drink = 0.6 oz pur e alcohol) PHQ-2 Answer Date Recorded Patient Health Questionnaire-2 Score 0 11/12/2024 PHQ-9 Answer Date Recorded Patient Health Questionnaire-9 Score 0 11/12/2024 AUDIT-C Answer Date Recorded Q1: How often do you have a drink containing alc ohol? Monthly or less 11/12/2024 Q2: How many drinks containi ng alcohol do you have on a typical day when you are drinking? 1 or 2 11/12/2024 Q3: How often do you have si x or more drinks on one occasion? Less than monthly 11/12/2024 Sex and Gender Information Value Date Recorded Sex Assigned at Not on file Legal Sex Male 7:19 PM EDT Gender Identity Not on file Sexual Orientation Not on file documented as of this encounter Last Filed Vital Signs Vital Sign Reading Time Taken Comments Blood Pressure 104/67 11/12/2024 8:31 AM EDT Pulse 92 11/12/2024 8:31 AM EDT Temperature 36.7 C (98.1 F) 11/12/2024 8:31 AM EDT Respiratory Rate - - Oxygen Saturation 98% 11/12/2024 8:31 AM EDT Inhaled Oxygen Concentration - - Weight 90 kg (198 lb 6.6 oz) 11/12/2024 8:31 AM EDT Height 175.3 cm (5' 9 ) 11/12/2024 8:31 AM EDT Body Mass Index 29.3 11/12/2024 8:31 AM EDT documented in this encounter Functional Status * AUDIT-C Score Answer Date of Assessment Author 2 11/12/2024 8:32 AM EDT Zakiya Becker * Question Answer Date of Assessment Author Q1: How often do you have a drink containing alcohol? Monthly or less 11/12/2024 8:32 AM Smith Holley Q2: How many drinks containing alcohol do you have on a typical day when you are drinking? 1 or 2 11/12/2024 8:32 AM Sahil Holley Q3: How often do you have six or more drinks on one occasion? Less than monthly 11/12/2024 8:32 AM Sahil Holley * Over the past 2 weeks, how often have you been bothered by any of the following problems? Question Answer Date of Assessment Author Little interest or pleasure in doing things Not at all 11/12/2024 8:33 AM Sahil Holley Feeling down, depressed, or hopeless Not at all 11/12/2024 8:33 AM Sahil Holley Patient Health Questionnaire -2 Score 0 11/12/2024 8:33 AM Sahil Holley * Question Answer Date of Assessment Author Trouble falling or staying a sleep, or sleeping too much Not at all 11/12/2024 8:33 AM Sahil Holley Feeling tired or having shirin le energy Not at all 11/12/2024 8:33 AM Sahil Holley Poor appetite or overeating Not at all 11/12/2024 8: 33 AM Sahil Holley Feeling bad about yourself - or that you are a failure or have let yourself or your family down Not at all 11/12/2024 8:33 AM Russ Holley Trouble concentrating on thi ngs, such as reading the newspaper or watching television Not at all 11/12/2024 8:33 AM Sahil Holley Moving or speaking so slowly that other people could have noticed? Or the opposite - being so fidgety or restless that you have been moving around a lot more than usual. Not at all 11/12/2024 8:33 AM Sahil Holley Thoughts that you would be b manas off or hurting yourself in some way Not at all 11/12/2024 8:33 AM Sahil Holley Patient Health Questionnaire -9 Score 0 11/12/2024 8:33 AM Sahil Holley * If you checked off any problems on this questionnaire so far, Question Answer Date of Assessment Author How difficult have these problems made it for you to do your work, take care of things at home, or get along with other people? Not difficult at all 11/12/2024 8:33 AM Sahil Holley documented as of this encounter Miscellaneous Notes * Progress Notes - Salomón Escoto MD - 11/12/2024 8:30 AM EDT Chief complaint: ???It stings when I pee?? Urologic history: July 2024 evaluation of dysuria with a negative urinalysis Report of a pelvic CT scan with significant findings except for a couple of inguinal lymph nodes?? Periodically with Flomax and Bactrim for possible prostatitis and perhaps orchialgia [id number] scrotal ultrasound: - 3 mm left epididymal head cyst - Mm right epididymal head cyst - Small bilateral hydrocele - Testes are equal and normal in size with normal arterial flow History History of present illness: Jose Jenkins is a 24 y.o. who presents for evaluation of dysuria. He states ???I sting when I pee, it is itchy down there, and I have enlarged lymph nodes. Patient was initially evaluated July of 2024 for new onset dysuria. States that this occurs primarily at his urethral meatus. Is worse toward the end of his urinary stream. He does not associate this with any new medication or any particular activity that occurred prior to the symptoms beginning. He does relate that his urine remains dark colored no matter how much water he drinks. He reports voiding with a good stream and no visiblehematuria. He reports no urethral discharge. Currently he states that he drinks primarily water with some mountain dew and voids every 4-6 hoursduring the daytime with no nocturia. He has no erectile dysfunction or ejaculatory dysfunction. He has no pain with ejaculation. He does take showers and uses Old Spice body wash. Past medical history: - Asthma Past Surgical history: - Tonsils and adenoidectomy - Appendectomy - Cholecystectomy Review of systems: Constitutional: Negative for chills, fatigue and fever. HENT: Negative for congestion, ear discharge, sore throat, trouble swallowing and voice change. Respiratory: Negative for shortness of breath. Cardiovascular: Negative for leg swelling and chest pain. Gastrointestinal: Alternating constipation and diarrhea which is worse after his cholecystectomy Hematological: Negative for easy bleeding/bruising : See HPI Medical History: PMH: has a past medical history of Personal history of other diseases of the digestive system, Personal history of other diseases of the respiratory system, and Unspecified fracture of shaft of humerus, left arm, initial encounter for closed fracture. PSH: has a past surgical history that includes Tympanostomy tube placement (N/A) and Tonsilectomy, adenoidectomy, bilateral myringotomy and tubes (N/A). FH: family history includes Conversions - Other in his father and mother; Eczema in his mother; Thyroid disease in his father. SH: reports that he has been smoking. He has quit using smokeless tobacco. His smokeless tobacco use included chew. He reports that he does not drink alcohol and does not use drugs. Current Medications[1] Physical Exam Physical Exam Constitutional: General: Not in acute distress. HENT: Head: Normocephalic. Sclerae are not overtly icteric Eyes: Sclera-non icteric Cardiovascular: Palpable pulse Pulmonary: Effort: No respiratory distress. Abdominal: General: Abdomen is soft and nondistended. Shotty, bilateral, mobile inguinal lymph nodes Tenderness: There is no abdominal tenderness. There is no right CVA tenderness or left CVA tenderness. Genitourinary: Penis: Circumcised without visible or palpable lesions. Meatus is intact without redness or discharge. Testes: Symmetrical without palpable mass or tenderness Epididymis: No enlargement or tenderness. Epididymal cysts reported on scrotal ultrasound are not clinically evident. Vasa: Palpable bilaterally Prostate: Not examined Musculoskeletal: General: Normal range of motion. Skin: General: Skin is warm and dry. Neurologic: Mental Status: Alert and oriented to person, place, and time. Lab & Imaging Laboratory results review: 11/12/2024 dipstick UA with moderate bilirubin, greater than 80 mg/dL of ketones, 30 mg/dL of protein. Radiograph review: Images independently reviewed Assessment and Plan DISCUSSION: Dark urine could be related to the bilirubinuria Dysuria could be meatal irritation secondary to harsh chemicals and/or aggressive manipulation. Patient was reassured that he does not have any evidence of testicular or epididymal mass concerning for malignancy. I explained the difference in clinically obvious findings versus ultrasound findings. I recommended he continue self-examination of his shotty inguinal lymph nodes and report back if the lymph nodes become more enlarged and/or fixed. Assessment: Jose Jenkins is a 24 y.o. male with Diagnosis Plan 1. Dysuria CMP CBC with Diff Cysto- Urology 2. Bilirubinuria Plan: Discontinue use of all spice body wash and switch to a milder soap like dove or zest Return to clinic for cystoscopy. If the dysuria resolves with discontinuation of the body wash the cystoscopy can be canceled. CMP plus CBC today to evaluate for the possibility of increased serum bilirubin Increase daily by mouth water intake so that voiding occurs approximately every 2 hours. Time Spent: 47 Minutes I saw and evaluated the patient. I discussed the case with the resident/fellow and agree with the findings and plan as documented. Salomón Escoto MD [1] Current Outpatient Medications Medication Sig Dispense Refill albuterol 108 (90 Base) MCG/ACT inhaler Four times a day benzonatate (Tessalon) 100 MG capsule cyclobenzaprine (Flexeril) 5 MG tablet Take 1 tablet (5 mg) by mouth every night. escitalopram (Lexapro) 5 MG tablet Take 1 tablet (5 mg) by mouth 1 (one) time each day. Flovent HFA 44 MCG/ACT inhaler FT Mucus Relief 12HR 600 MG 12 hr tablet ibuprofen 800 MG tablet 1 tablet (800 mg). ondansetron ODT (Zofran-ODT) 4 MG disintegrating tablet Take 1 tablet (4 mg) by mouth if needed. No current facility-administered medications for this visit. documented in this encounter Plan of Treatment Not on file documented as of this encounter Procedures Procedure Name Priority Date/Time Associated Diagnosis Comments POCT URINALYSIS DIPSTICK Routine 11/12/2024 8:29 AM EDT documented in this encounter Results * CYSTO- UROLOGY (11/19/2024 9:39 PM EDT) Narrative Salomón Escoto MD - 11/19/2024 9:39 PM EDT Salomón Escoto MD 11/20/2024 7:45 PM Cysto- Urology Date/Time: 11/19/2024 9:39 PM Performed by: Surjit Alfaro MD Authorized by: Salomón Escoto MD Procedure discussed: discussed risks, benefits and alternatives Care Associate present: yes Timeout: timeout called immediately prior to procedure Prep: patient was prepped and draped in usual sterile fashion Prep type: Betadine Procedure Details Cystoscope type: flexible Cystoscopy route: transurethral Cystoscopy location: [place] [facility] [place] bladder Urethra Urethra: normal Bladder Bladder comment: A flexible cystoscope was introduced into patient's bladder. The bladder was inspected systematically including retroflection of the scope. The patient's bilateral ureteral orifices were identified. There were no abnormal masses, lesions, or stones identified. The scope was removed from the patient's bladder. Post-Procedure Details Outcome: patient tolerated procedure well with no complications Salomón Escoto MD UROLOGY ORDERABLES Final Result * (ABNORMAL) CBC with Diff (11/12/2024 9:22 AM EDT) WBC Count 10.90(H) 3.70 - 10.30 10*3/uL LAB HEMATOLOGY METHOD 11/12/2024 11:39 AM EDT [facility] RBC Count 5.39 4.60 - 6.10 10*6/uL LAB HEMATOLOGY METHOD 11/12/2024 11:39 AM EDT [facility] HGB 16.2 13.7 - 17.5 g/dL LAB HEMATOLOGY METHOD 11/12/2024 11:39 AM EDT [facility] HCT 47.3 40.0 - 51.0 % LAB HEMATOLOGY METHOD 11/12/2024 11:39 AM EDT [facility] Platelet Count 239 155 - 369 10*3/uL LAB HEMATOLOGY METHOD 11/12/2024 11:39 AM EDT [facility] MCV 88 79 - 98 fL LAB HEMATOLOGY METHOD 11/12/2024 11:39 AM EDT [facility] MCH 30.1 26.0 - 32.0 pg LAB HEMATOLOGY METHOD 11/12/2024 11:39 AM EDT [facility] MCHC 34.2 30.7 - 35.5 g/dL LAB HEMATOLOGY METHOD 11/12/2024 11:39 AM EDT [facility] RDW 14.1 11.5 - 14.5 % LAB HEMATOLOGY METHOD 11/12/2024 11:39 AM EDT [facility] MPV 10.4 8.8 - 12.5 fL LAB HEMATOLOGY METHOD 11/12/2024 11:39 AM EDT [facility] nRBC 0.0 <=0.0 per 100 WBCs LAB HEMATOLOGY METHOD 11/12/2024 11:39 AM EDT [facility] Differential Type Automated LAB HEMATOLOGY METHOD 11/12/2024 11:39 AM EDT [facility] Neutrophils % 67 % LAB HEMATOLOGY METHOD 11/12/2024 11:39 AM EDT [facility] Lymphocytes % 20 % LAB HEMATOLOGY METHOD 11/12/2024 11:39 AM EDT [facility] Monocytes % 10 % LAB HEMATOLOGY METHOD 11/12/2024 11:39 AM EDT [facility] Eosinophils % 2 % LAB HEMATOLOGY METHOD 11/12/2024 11:39 AM EDT [facility] Basophils % 1 % LAB HEMATOLOGY METHOD 11/12/2024 11:39 AM EDT [facility] Immature Granulocytes % 0 % LAB HEMATOLOGY METHOD 11/12/2024 11:39 AM EDT [facility] Neutrophils Absolute 7.34(H) 1.60 - 6.10 10*3/uL LAB HEMATOLOGY METHOD 11/12/2024 11:39 AM EDT [facility] Lymphocytes Absolute 2.18 1.20 - 3.90 10*3/uL LAB HEMATOLOGY METHOD 11/12/2024 11:39 AM EDT [facility] Monocytes Absolute 1.04(H) 0.30 - 0.90 10*3/uL LAB HEMATOLOGY METHOD 11/12/2024 11:39 AM EDT [facility] Eosinophils Absolute 0.25 0.00 - 0.50 10*3/uL LAB HEMATOLOGY METHOD 11/12/2024 11:39 AM EDT [facility] Basophils Absolute 0.05 0.00 - 0.10 10*3/uL LAB HEMATOLOGY METHOD 11/12/2024 11:39 AM EDT [facility] Immature Granulocytes Absolute 0.04 0.00 - 0.06 10*3/uL LAB HEMATOLOGY METHOD 11/12/2024 11:39 AM EDT [facility] Blood Venous blood specimen / Unknown Venipuncture / Unknown 11/12/2024 9:22 AM EDT 11/12/2024 9:22 AM EDT Narrative [facility] - 11/12/2024 11:39 AM EDT Therapeutic decision making should be based on absolute values, rather than percentages. us Salomón Escoto MD LAB BLOOD ORDERABLES Final Resu lt [facility] [address] [place] [address] * (ABNORMAL) CMP (11/12/2024 9:22 AM EDT) Glucose, Plasma 93 74 - 99 mg/dL 11/12/2024 12:03 PM EDT [facility] BUN, Plasma 11 7 - 21 mg/dL 11/12/2024 12:03 PM EDT [facility] Creatinine, Plasma 0.78 0.70 - 1.20 mg/dL 11/12/2024 12:03 PM EDT [facility] BUN/Creatinine Ratio 14 11/12/2024 12:03 PM EDT [facility] Sodium, Plasma 138 136 - 145 mmol/L 11/12/2024 12:03 PM EDT [facility] Potassium, Plasma 4.2 3.6 - 4.9 mmol/L 11/12/2024 12:03 PM EDT [facility] Chloride, Plasma 103 97 - 107 mmol/L 11/12/2024 12:03 PM EDT [facility] CO2, Plasma 25 22 - 29 mmol/L 11/12/2024 12:03 PM EDT [facility] Anion Gap 10 6 - 16 mmol/L 11/12/2024 12:03 PM EDT [facility] Total Calcium, Plasma 9.5 8.9 - 10.2 mg/dL 11/12/2024 12:03 PM EDT [facility] Total Protein 7.5 6.3 - 7.9 g/dL 11/12/2024 12:03 PM T [facility] Albumin, Plasma 4.7 3.5 - 5.2 g/dL 11/12/2024 12:03 PM EDT [facility] AST, Plasma 18 10 - 50 U/L 11/12/2024 12:03 PM EDT [facility] ALT, Plasma 9(L) 10 - 50 U/L 11/12/2024 12:03 PM T [facility] Alkaline Phosphatase, Plasma 89 40 - 115 U/L 11/12/2024 12:03 PM EDT [facility] Total Bilirubin, Plasma 0.5 0.2 - 1.1 mg/dL 11/12/2024 12:03 PM EDT [facility] eGFRcr 129.3 mL/min/1.7 3m*2 11/12/2024 12:03 PM EDT [facility] Comment:Reported eGFRcr in m L/min/1.73m2 is based the CKD-EPI 2020 equation that does not use a race coefficient. Blood Venous blood specimen / Unknown Venipuncture / Unknown 11/12/2024 9:22 AM EDT 11/12/2024 9:22 AM EDT us Salomón Escoto MD LAB BLOOD ORDERABLES Final Resu lt [facility] [address] [place] [address] * (ABNORMAL) POCT URINALYSIS DIPSTICK (11/12/2024 8:29 AM EDT) POCT Urine Color Yellow 11/12/2024 8:30 AM EDT [facility] POCT Urine Clarity Clear 11/12/2024 8:30 AM EDT [facility] POCT Urine Glucose Negative Negative mg/dL 11/12/2024 8:30 AM EDT [facility] POCT Urine Bilirubin Moderate(A) Negative mg/dL 11/12/2024 8:30 AM EDT [facility] POCT Urine Ketones >=80(A) Negative mg/dL 11/12/2024 8:30 AM EDT [facility] POCT Urine Specific [place] >=1.030 1.005 - 1.030 11/12/2024 8:30 AM EDT [facility] POCT Urine Blood Negative Negative 11/12/2024 8:30 AM EDT [facility] POCT pH, Urine 6.0 5.0 - 8.0 11/12/2024 8:30 AM EDT [facility] POCT Protein, Urine 30(A) Negative mg/dL 11/12/2024 8:30 AM EDT [facility] POCT Urobilinogen, Urine 1.0 0.2, 1.0 EU/dL 11/12/2024 8:30 AM EDT [facility] POCT Nitrite, Urine Negative Negative 11/12/2024 8:30 AM EDT [facility] POCT Urine Leukocyte Esterase Negative Negative 11/12/2024 8:30 AM EDT [facility] Urine 11/12/2024 8:29 AM EDT 11/12/2024 8:30 AM EDT us Salomón Escoto MD LAB POINT OF CARE TE ST DOCKED DEVICE UNSOLICITED RESULTS Final Result Performing Organization Address City/[facility]/ZIP Co de Phone Number [facility] Carmen Rodney [place], [place] documented in this encounter Visit Diagnoses Diagnosis Dysuria- Primary Bilirubinuria Biliuria Dysuria- Primary documented in this encounter Additional Health Concerns Assessment Noted Time PHQ-9 Depression Total Score: 0 11/13/19 25 8:33 AM EDT A fall risk assessment has been complete d for the patient 11/12/2024 8:33 AM EDT A Body Mass Index follow-up plan has been documented for the patient 11/12/2024 9:38 AM EDT documented as of this encounter Care Teams Ux Engineer Relationship Specialty Start Date End Date Chano Kidd MD [address] [place] [address] PCP - General 08/27/20 documented as of this encounter
--- OUTSIDE RECORDS SUMMARY | 2024-11-19 10:00 | XMS_ITS | Encounter Summary ---
Author Organization Healthcare Address [address] [id number] Care Team Providers Care Pressing Department Supervisor Name Role Phone Chano Kidd MD Primary Care Provider [phone] Reason for Visit * Other Medical (Routine) - Closed Specialty Diagnoses / Procedures Referred By Yousif davey Referred To Contact Urology Diagnoses Dysuria Procedures Cysto- Urology Salomón Escoto MD [address] [address] Phone: tel: fax: Referral ID Status Reason Start Date Expiration Date Visits Re quested Visits Authorized [id number] Closed 11/12/2024 05/14/2026 1 1 Encounter Details Date Type Department Care Team ([facility] st Contact Info) Description 11/19/2024 10:00 AM EDT Office Visit Medical Office Building Urology [address], [address] [place] [address] Salomón Escoto MD [address] [address] Dysuria (Primary Dx) Social History Tobacco Use Types Packs/Day Years Used Date Smoking Tobacco: Every Day Smokeless Tobacco: Former Chew Alcohol Use Standard Drinks/Week Comments Never 0 (1 standard drink = 0.6 oz pur e alcohol) PHQ-2 Answer Date Recorded Patient Health Questionnaire-2 Score 0 11/19/2024 PHQ-9 Answer Date Recorded Patient Health Questionnaire-9 Score 0 11/19/2024 AUDIT-C Answer Date Recorded Q1: How often do you have a drink containing alcohol? Never 11/19/2024 Q2: How many drinks containi ng alcohol do you have on a typical day when you are drinking? Patient does not drink Q3: How often do you have si x or more drinks on one occasion? Never 11/19/2024 Sex and Gender Information Value Date Recorded Sex Assigned at Not on file Legal Sex Male 7:19 PM EDT Gender Identity Not on file Sexual Orientation Not on file documented as of this encounter Last Filed Vital Signs Vital Sign Reading Time Taken Comments Blood Pressure 104/67 11/19/2024 9:53 AM EDT Pulse 89 11/19/2024 9:53 AM EDT Temperature 36.7 C (98.1 F) 11/19/2024 9:53 AM EDT Respiratory Rate - - Oxygen Saturation 100% 11/19/2024 9:53 AM EDT Inhaled Oxygen Concentration - - Weight 90 kg (198 lb 6.6 oz) 11/19/2024 9:53 AM EDT Height 175.3 cm (5' 9 ) 11/19/2024 9:53 AM EDT Body Mass Index 29.3 11/19/2024 9:53 AM EDT documented in this encounter Functional Status * AUDIT-C Score Answer Date of Assessment Author 0 11/19/2024 9:53 AM Zakiya Holley * Question Answer Date of Assessment Author Q1: How often do you have a drink containing alcohol? Never 11/19/2024 9:53 AM Sahil Holley Q2: How many drinks containing alcohol do you have on a typical day when you are drinking? Patient does not drink 11/19/2024 9:53 AM Sahil Holley Q3: How often do you have six or more drinks on one occasion? Never 11/19/2024 9:53 AM Sahil Holley * Over the past 2 weeks, how often have you been bothered by any of the following problems? Question Answer Date of Assessment Author Little interest or pleasure in doing things Not at all 11/19/2024 9:54 AM Sahil Holley Feeling down, depressed, or hopeless Not at all 11/19/2024 9:54 AM Sahil Holley Patient Health Questionnaire -2 Score 0 11/19/2024 9:54 AM Sahil Holley * Question Answer Date of Assessment Author Trouble falling or staying a sleep, or sleeping too much Not at all 11/19/2024 9:54 AM Sahil Holley Feeling tired or having shirin le energy Not at all 11/19/2024 9:54 AM Sahil Holley Poor appetite or overeating Not at all 11/19/2024 9: 54 AM Sahil Holley Feeling bad about yourself - or that you are a failure or have let yourself or your family down Not at all 11/19/2024 9:54 AM Russ Holley Trouble concentrating on thi ngs, such as reading the newspaper or watching television Not at all 11/19/2024 9:54 AM Sahil Holley Moving or speaking so slowly that other people could have noticed? Or the opposite - being so fidgety or restless that you have been moving around a lot more than usual. Not at all 11/19/2024 9:54 AM Sahil Holley Thoughts that you would be b manas off or hurting yourself in some way Not at all 11/19/2024 9:54 AM Sahil Holley Patient Health Questionnaire -9 Score 0 11/19/2024 9:54 AM Sahil Holley documented as of this encounter Miscellaneous Notes * Progress Notes - Surjit Alfaro MD - 11/19/2024 10:00 AM EDTAssociated Order(s): Cysto- Urology Pre-Procedure Diagnose(s): Dysuria Post-Procedure Diagnose(s): Dysuria Chief complaint: Here for cystoscopy to further evaluate his dysuria. Urologic history: July 2024 evaluation of dysuria with a negative urinalysis Report of a pelvic CT scan with significant findings except for a couple of inguinal lymph nodes?? Periodically with Flomax and Bactrim for possible prostatitis and perhaps orchialgia 08/13/2024 scrotal ultrasound: - 3 mm left epididymal head cyst - Mm right epididymal head cyst - Small bilateral hydrocele - Testes are equal and normal in size with normal arterial flow 11/12/2024 CMP with normal serum bilirubin CBC was unremarkable except for a minimally elevated white blood cell count History History of present illness: Jose Jenkins is a 24 y.o. who presents for evaluation of dysuria. Patient was initially evaluated July of 2024 for new onset dysuria. He states that this occurs primarily at his urethral meatusand is worse toward the end of his urinary stream. He has had multiple UA which have been negative for infection since 02/2024. He does not associate this with any new medication or any particular activity that occurred prior to the symptoms beginning. He reports voiding with a good stream and no visible hematuria. He presents today for cystoscopic evaluation to rule out structural or anatomic causes of his dysuria. Review of systems: Constitutional: Negative for chills, [...] time. Lab & Imaging Laboratory results review: Lab Results Component Value Date PH 7.0 11/19/2024 SPECGRAV 1.025 11/19/2024 KETONESU 40 (A) 11/19/2024 GLUCOSEUA Negative 11/19/2024 POCPROTUR Negative 11/19/2024 RBCUR Negative 11/19/2024 NITRITE Negative 11/19/2024 WBCUR Negative 11/19/2024 Lab Results Component Value Date WBC 10.90 (H) 11/12/2024 HGB 16.2 11/12/2024 HCT 47.3 11/12/2024 MCV 88 11/12/2024 PLT 239 11/12/2024 Lab Results Component Value Date GLUCOSE 93 11/12/2024 BUN 11 11/12/2024 CREATININE 0.78 11/12/2024 BCR 14 11/12/2024 NA 138 11/12/2024 K 4.2 11/12/2024 CL 103 11/12/2024 CO2 25 11/12/2024 ALBUMIN 4.7 11/12/2024 ALKPHOS 89 11/12/2024 BILITOT 0.5 11/12/2024 Radiograph review: Images independently reviewed Scrotal US 08/13- Small bilateral epididymal head cysts, bilateral hydroceles, normal appearing testes with appropriate flow. Procedure Cysto- Urology Date/Time: 11/19/2024 9:39 PM Performed by: Surjit Alfaro MD Authorized by: Salomón Escoto MD Procedure discussed: discussed risks, benefits and alternatives Head Of Partner Development present: yes Timeout: timeout called immediately prior to procedure Prep: patient was prepped and draped in usual sterile fashion Prep type: Betadine Procedure Details Cystoscope type: flexible Cystoscopy route: transurethral Cystoscopy location: [place] bladder Urethra Urethra: normal Bladder Bladder comment: A flexible cystoscope was introduced into patient's bladder. The bladder was inspected systematically including retroflection of the scope. The patient's bilateral ureteral orifices were identified. There were no abnormal masses, lesions, or stones identified. The scope was removedfrom the patient's bladder. Post-Procedure Details Outcome: patient tolerated procedure well with no complications Assessment and Plan DISCUSSION: Jose Jenkins is a 24 y.o. who presents for evaluation of dysuria. Office cystoscopy today did not demonstrate any abnormalities. The bilirubin present in the patient's urine on 11/12 has resolvedon the most recent UA. We discussed that there are currently no identifiable structural or infectious causes of the patient's dysuria. He should continue to avoid chemical irritants such as heavily scented soaps. The patient should continue self examinations as previously described. The patient canreturn to clinic as needed for new or worsening symptoms. Assessment: Jose Jenkins is a 24 y.o. male with Diagnosis Plan 1. Dysuria Plan: RTC Prn [1] Current Outpatient Medications Medication Sig Dispense [...] No current facility-administered medications for this visit. Cosigned by Salomón Escoto MD at 11/20/2024 7:45 PM EDT Associated attestation - Salomón Escoto MD - 11/20/2024 7:45 PM EDT I saw and evaluated the patient with the resident/fellow. I discussed the case with the resident/fellow and agree with the findings and plan as documented. and I was present for the entirety of the procedure(s). documented in this encounter Plan of Treatment Not on file documented as of this encounter Procedures Procedure Name Priority Date/Time Associated Diagnosis Comments CYSTO- UROLOGY Routine 11/19/2024 9:39 PM EDT Dysuria POCT URINALYSIS DIPSTICK Routine 11/19/2024 9:50 AM EDT documented in this encounter Results * CYSTO- UROLOGY (11/19/2024 9:39 PM EDT) Narrative Salomón Escoto MD - 11/19/2024 9:39 PM EDT Salomón Escoto MD 11/20/2024 7:45 PM Cysto- Urology Date/Time: 11/19/2024 9:39 PM Performed by: Surjit Alfaro MD Authorized by: Salomón Escoto MD Procedure discussed: discussed risks, benefits and alternatives Head Of Partner Development present: yes Timeout: timeout called immediately prior to procedure Prep: patient was prepped and draped in usual sterile fashion Prep type: Betadine Procedure Details Cystoscope type: flexible Cystoscopy route: transurethral Cystoscopy location: [place] bladder Urethra Urethra: normal Bladder Bladder comment: [...] MD UROLOGY ORDERABLES Final Result * (ABNORMAL) POCT URINALYSIS DIPSTICK (11/19/2024 9:50 AM EDT) POCT Urine Color Yellow 11/19/2024 9:51 AM EDT [facility] Urine Clarity Clear 11/19/2024 9:51 AM EDT [facility] Urine Glucose Negative Negative mg/dL 11/19/2024 9:51 AM EDT [facility] Urine Bilirubin Negative Negative mg/dL 11/19/2024 9:51 AM EDT [facility] Urine Ketones 40(A) Negative mg/dL 11/19/2024 9:51 AM EDT [facility] POCT Urine Specific [place] 1.025 1.005 - 1.030 11/19/2024 9:51 AM EDT [facility] POCT Urine Blood Negative Negative 11/19/2024 9:51 AM EDT [facility] POCT pH, Urine 7.0 5.0 - 8.0 11/19/2024 9:51 AM EDT [facility] POCT Protein, Urine Negative Negative mg/dL 11/19/2024 9:51 AM EDT [facility] POCT Urobilinogen, Urine 0.2 0.2, 1.0 EU/dL 11/19/2024 9:51 AM EDT [facility] POCT Nitrite, Urine Negative Negative 11/19/2024 9:51 AM EDT [facility] POCT Urine Leukocyte Esterase Negative Negative 11/19/2024 9:51 AM EDT [facility] Urine 11/19/2024 9:50 AM EDT 11/19/2024 9:51 AM EDT us Salomón Escoto MD LAB POINT OF CARE TE ST DOCKED DEVICE UNSOLICITED RESULTS Final Result Performing Organization Address City/State/[facility] Co de Phone Number [facility] [address] [place], [place] documented in this encounter Visit Diagnoses Diagnosis Dysuria- Primary documented in this encounter Additional Health Concerns Assessment Noted Time PHQ-9 Depression Total Score: 0 11/20/19 25 9:54 AM EDT A fall risk assessment has been complete d for the patient 11/19/2024 9:54 AM EDT A Body Mass Index follow-up plan has been documented for the patient 11/20/2024 7:45 PM EDT documented as of this encounter Care Teams Pressing Department Supervisor Relationship Specialty Start Date End Date Chano Kidd MD [address] [place] [address] PCP - General 08/27/20 documented as of this encounter
--- NOTE | 2024-12-21 12:41 | XR_ITS ---
PROCEDURE INFORMATION: Exam: XR Chest Exam date and time: 12/21/2024 12:36 PM Age: 24 years old Clinical indication: Pain; Cough and shortness of breath; Other: Cp TECHNIQUE: Imaging protocol: Radiologic exam of the chest. Views: 2 views. COMPARISON: CR XR CHEST PORTABLE 05/27/2023 9:31 PM FINDINGS: Lungs: Unremarkable. No consolidation. Pleural spaces: Unremarkable. No pleural effusion. No pneumothorax. Heart/Mediastinum: Unremarkable. No cardiomegaly. Bones/joints: Unremarkable. IMPRESSION: No acute findings.
--- OUTSIDE RECORDS SUMMARY | 2024-12-21 12:43 | XMS_ITS | Encounter Summary ---
Author Organization Healthcare Address [address] [place] [address] Care Team Providers Care Hand Potter Name Role Phone Chano Kidd MD Primary Care Provider [phone] Encounter Details Date Type Department Care Team (Late st Contact Info) Description 11/19/2024 Telephone [facility] [address] [place] [address] Salomón Escoto MD [address] [place] [address] Social History Tobacco Use Types Packs/Day Years [...] on file documented as of this encounter Functional Status * AUDIT-C Score Answer Date of Assessment Author 0 11/19/2024 9:53 AM EDT Zakiya Becker * Question Answer [...] Questionnaire -9 Score 0 11/19/2024 9:54 AM EDT Sahil Becker documented as of this encounter Miscellaneous Notes * Telephone Encounter - Amy Crocker - 11/24/2024 11:14 AM EDT Note had been emailed * Telephone Encounter - Amy Cavanaugh - 11/19/2024 10:58 AM EDT Paperwork/Documentation Request Patient Name: Jose Jenkins Type: Work Excuse Note Due Date: unknown date Send To: Best contact number: [phone] (home) Optimal time of day to reach caller: ANYTIME Additional comments/information from caller: None Note: Please do not reply to this message. Follow-up communication and further actions as a result of this message need to be communicated with the patient directly, if the patient is not active onMyChart. If the patient is active on MyChart, they will receive notification of the communication/outcome via [employer]. documented in this encounter Plan of Treatment Not on file documented as of this encounter Visit Diagnoses Not on filedocumented in this encounter Additional Health Concerns Assessment Noted Time PHQ-9 Depression Total Score: 0 11/20/19 25 9:54 AM EDT A fall risk assessment has been complete d for the patient 11/19/2024 9:54 AM EDT A Body Mass Index follow-up plan has been documented for the patient 11/20/2024 7:45 PM EDT documented as of this encounter Care Teams Hand Potter Relationship Specialty Start Date End Date Chano Kidd MD [address] [place] [address] PCP - General 08/27/20 documented as of this encounter
--- OUTSIDE RECORDS SUMMARY | 2024-12-21 12:43 | XMS_ITS | Clinical Summary ---
Author Organization Healthcare Address [address] [place] [address] Care Team Providers Care Project Development Coordinator Name Role Phone Chano Kidd MD Primary Care Provider [phone] Allergies Active Allergy Reactions Criticality Noted Date Comments Penicillins Unknown - Patient st ates they do not know rxn details Low 05/31/2015 Medications albuterol 108 (90 Base) MCG/ACT inhaler Four times a day 3 Active benzonatate (Tessalon) 100 MG capsule 3 Active escitalopram (Lexapro) 5 MG tablet Take 1 tablet (5 mg) by mouth 1 (one) time each day. 9 Active Flovent HFA 44 MCG/ACT inhaler 3 Active FT Mucus Relief 12HR 600 MG 12 hr tablet 3 Active ibuprofen 800 MG tablet 1 tablet (800 mg). 4 Active ondansetron ODT (Zofran-ODT) 4 MG disintegrating tablet Take 1 tablet (4 mg) by mouth if needed. 4 Active cyclobenzaprine (Flexeril) 5 MG tablet Take 1 tablet (5 mg) by mouth every night. 4 Active Active Problems No known active problems Encounters Date Type Department Care Team Description 11/19/2024 10:00 AM EDT Office Visit Medical Office Building Urology [address] [facility], [address] [place] [address] Salomón Escoto MD Dysuria (Primary Dx) 11/19/2024 Telephone [facility] [address] [place] [address] Salomón Escoto MD 11/19/2024 Travel 11/12/2024 8:30 AM EDT Consult Medical Office Building Urology [facility] [address] [facility], [address] [place] [address] Salomón Escoto MD Dysuria (Primary Dx); Bilirubinuria 11/12/2024 Travel from Last 3 Months Family History Medical History Relation Name Comments Conversions - Other Father substanc e abuse Thyroid disease Father Conversions - Other Mother substanc e abuse Eczema Mother Relation Name Status Comments Father Mother Social History Tobacco Use Types Packs/Day Years [...] on file Sexual Orientation Not on file Last Filed Vital Signs Vital Sign Reading Time Taken Comments Blood Pressure 104/67 11/19/2024 9:53 AM EDT Pulse 89 11/19/2024 9:53 AM EDT Temperature 36.7 C (98.1 F) 11/19/2024 9:53 AM EDT Respiratory Rate 16 04/22/2023 12:33 PM EST Oxygen Saturation 100% 11/19/2024 9:53 AM EDT Inhaled Oxygen Concentration - - Weight 90 kg (198 lb 6.6 oz) 11/19/2024 9:53 AM EDT Height 175.3 cm (5' 9 ) 11/19/2024 9:53 AM EDT Body Mass Index 29.3 11/19/2024 9:53 AM EDT Plan of Treatment Health Maintenance Due Date Last Done Comments [facility]-HIV Screening 2002 [facility]-Hepatitis C Screening 2002 [facility]-/Child/Adol SDOH Screenings 2002 [facility]-IPV Vaccines (2 of 3 - 4-dose series) 03/09/2006 02/09/2006, 2002, 2002, Additional history exists [facility]- SDOH Screenings 02/08/2020 [facility]-Adult SDOH Screenings 02/08/2020 [facility]-Pneumococcal Vaccine: Pediatrics (0 to 5 Years) and At-Risk Patients (6 to 49 Years) (1 of 2 - PCV) 2021 [facility]-DTaP,Tdap,and Td Vaccines (7 - Td or Tdap) 11/06/2024 11/06/2014, 02/09/2006, 08/12/2003, Additional history exists ZTD-YFBRO-05 Vaccine (3 - 2024- season) 2024 08/08/2021, 08/06/2020 [facility]-Influenza Vaccine (#1) 12/15/202402/14, 04/25/2018, 01/20/2016, Additional history exists [facility]-Depression Screening 11/19/2025 11/19/2024, 0809/2024 [facility]-Zoster Vaccines (1 of 2) 02/08/2052 02/01/2005, 02/13/2003 [facility]-Hepatitis B Vaccines Completed 003, 2002, 2002 [facility]-HIB Vaccines Completed 08/12/2003, , 2002, Additional history exists [facility]-Varicella Vaccines Completed 02/01/2005, 2002 HPV Vaccines Completed 10/29/2017, 11/06/2014 [facility]-Hepatitis A Vaccines Completed 10/29/2017, 10/15 [facility]-Obesity Intervention Completed 025, 11/12/2024, 06/22/2023, Additional history exists [facility]-Rotavirus Vaccines Aged Out No lo nger eligible based on patient's age to complete this topic Procedures Procedure Name Priority Date/Time Associated Diagnosis Comments CYSTO- UROLOGY Routine 11/19/2024 9:39 PM EDT Dysuria POCT URINALYSIS DIPSTICK Routine 11/19/2024 9:50 AM EDT CBC WITH AUTO DIFFERENTIAL Routine 11/12/2024 9:22 AM EDT Dysuria COMPREHENSIVE METABOLIC PANEL, PLASMA Routine 11/12/2024 9:22 AM EDT Dysuria POCT URINALYSIS DIPSTICK Routine 11/12/2024 8:29 AM EDT from Last 3 Months Results * CYSTO- UROLOGY (11/19/2024 9:39 PM EDT) Narrative Salomón Escoto MD - 11/19/2024 9:39 PM EDT Salomón Escoto MD 11/20/2024 7:45 PM Cysto- Urology Date/Time: 11/19/2024 9:39 PM Performed by: Surjit Alfaro MD Authorized by: Salomón Escoto MD Procedure discussed: discussed risks, benefits and alternatives Precision Filer Hand present: yes Timeout: timeout called immediately prior to procedure Prep: patient was prepped and draped in usual sterile fashion Prep type: Betadine Procedure Details Cystoscope type: flexible Cystoscopy route: transurethral Cystoscopy location: port lions bladder Urethra Urethra: normal Bladder Bladder comment: A flexible cystoscope was introduced into patient's bladder. The bladder was inspected systematically including retroflection of the scope. The patient's bilateral ureteral orifices were identified. There were no abnormal masses, lesions, or stones identified. The scope was removed from the patient's bladder. Post-Procedure Details Outcome: patient tolerated procedure well with no complications us Salomón Escoto MD UROLOGY ORDERABLES Final Result * (ABNORMAL) POCT URINALYSIS DIPSTICK (11/19/2024 9:50 AM EDT) Only the most recent of2 resultswithin the time period is included. POCT Urine Color Yellow 11/19/2024 9:51 AM EDT [facility] POCT Urine Clarity Clear 11/19/2024 9:51 AM EDT [facility] POCT Urine Glucose Negative Negative mg/dL 11/19/2024 9:51 AM EDT [facility] POCT Urine Bilirubin Negative Negative mg/dL 11/19/2024 9:51 AM EDT [facility] POCT Urine Ketones 40(A) Negative mg/dL 11/19/2024 9:51 AM EDT [facility] POCT Urine Specific Mack 1.025 1.005 - 1.030 11/19/2024 9:51 AM [...] UNSOLICITED RESULTS Final Result Performing Organization Address City/State/[facility] Co de Phone Number [facility] [address] [place], [place] * (ABNORMAL) CBC with Diff (11/12/2024 9:22 AM EDT) WBC Count 10.90(H) 3.70 - 10.30 10*3/uL LAB HEMATOLOGY METHOD 11/12/2024 11:39 AM EDT [facility] RBC Count 5.39 4.60 - 6.10 10*6/uL LAB HEMATOLOGY METHOD 11/12/2024 11:39 AM EDT [facility] HGB 16.2 13.7 - 17.5 g/dL LAB HEMATOLOGY METHOD 11/12/2024 11:39 AM EDT [facility] HCT 47.3 40.0 - 51.0 % LAB HEMATOLOGY METHOD 11/12/2024 11:39 AM EDT [facility] Platelet Count 239 155 - 369 10*3/uL LAB HEMATOLOGY METHOD 11/12/2024 11:39 AM EDT [facility] MCV 88 79 - 98 fL LAB HEMATOLOGY METHOD 11/12/2024 11:39 AM EDT [facility] MCH 30.1 26.0 - 32.0 pg LAB HEMATOLOGY METHOD 11/12/2024 11:39 AM EDT [facility] MCHC 34.2 30.7 - 35.5 g/dL LAB HEMATOLOGY METHOD 11/12/2024 11:39 AM EDT [facility] RDW 14.1 11.5 - 14.5 % LAB HEMATOLOGY METHOD 11/12/2024 11:39 AM EDT [facility] MPV 10.4 8.8 - 12.5 fL LAB HEMATOLOGY METHOD 11/12/2024 11:39 AM EDT [facility] nRBC 0.0 <=0.0 per 100 WBCs LAB HEMATOLOGY METHOD 11/12/2024 11:39 AM EDT [facility] Differential Type Automated LAB HEMATOLOGY METHOD 11/12/2024 11:39 AM EDT [facility] Neutrophils % 67 % LAB HEMATOLOGY METHOD 11/12/2024 11:39 AM EDT [facility] Lymphocytes % 20 % LAB HEMATOLOGY METHOD 11/12/2024 11:39 AM EDT [facility] Monocytes % 10 % LAB HEMATOLOGY METHOD 11/12/2024 11:39 AM EDT [facility] Eosinophils % 2 % LAB HEMATOLOGY METHOD 11/12/2024 11:39 AM EDT [facility] Basophils % 1 % LAB HEMATOLOGY METHOD 11/12/2024 11:39 AM EDT [facility] Immature Granulocytes % 0 % LAB HEMATOLOGY METHOD 11/12/2024 11:39 AM EDT [facility] Neutrophils Absolute 7.34(H) 1.60 - 6.10 10*3/uL LAB HEMATOLOGY METHOD 11/12/2024 11:39 AM EDT [facility] Lymphocytes Absolute 2.18 1.20 - 3.90 10*3/uL LAB HEMATOLOGY METHOD 11/12/2024 11:39 AM EDT [facility] Monocytes Absolute 1.04(H) 0.30 - 0.90 10*3/uL LAB HEMATOLOGY METHOD 11/12/2024 11:39 AM EDT [facility] Eosinophils Absolute 0.25 0.00 - 0.50 10*3/uL LAB HEMATOLOGY METHOD 11/12/2024 11:39 AM EDT [facility] Basophils Absolute 0.05 0.00 - 0.10 10*3/uL LAB HEMATOLOGY METHOD 11/12/2024 11:39 AM EDT [facility] Immature Granulocytes Absolute 0.04 0.00 - [...] MD LAB BLOOD ORDERABLES Final Resu lt [facility] [address] [place] [address] * (ABNORMAL) CMP (11/12/2024 9:22 AM EDT) Glucose, Plasma 93 74 - 99 mg/dL 11/12/2024 12:03 PM EDT [facility] BUN, Plasma 11 7 - 21 mg/dL 11/12/2024 12:03 PM EDT [facility] Creatinine, Plasma 0.78 0.70 - 1.20 mg/dL 11/12/2024 12:03 PM EDT [facility] BUN/Creatinine Ratio 14 11/12/2024 12:03 PM EDT [facility] Sodium, Plasma 138 136 - 145 mmol/L 11/12/2024 12:03 PM EDT [facility] Potassium, Plasma 4.2 3.6 - 4.9 mmol/L 11/12/2024 12:03 PM EDT [facility] Chloride, Plasma 103 97 - 107 mmol/L 11/12/2024 12:03 PM EDT [facility] CO2, Plasma 25 22 - 29 mmol/L 11/12/2024 12:03 PM EDT [facility] Anion Gap 10 6 - 16 mmol/L 11/12/2024 12:03 PM EDT [facility] Total Calcium, Plasma 9.5 8.9 - 10.2 mg/dL 11/12/2024 12:03 PM EDT [facility] Total Protein 7.5 6.3 - 7.9 g/dL 11/12/2024 12:03 PM EDT [facility] Albumin, Plasma 4.7 3.5 - 5.2 g/dL 11/12/2024 12:03 PM EDT [facility] AST, Plasma 18 10 - 50 U/L 11/12/2024 12:03 PM EDT [facility] ALT, Plasma 9(L) 10 - 50 U/L 11/12/2024 12:03 PM EDT [facility] Alkaline Phosphatase, Plasma 89 40 - 115 U/L 11/12/2024 12:03 PM EDT [facility] Total Bilirubin, Plasma 0.5 0.2 - 1.1 mg/dL 11/12/2024 12:03 PM EDT [facility] eGFRcr 129.3 mL/min/1.7 3m*2 11/12/2024 12:03 PM EDT [facility] Comment:Reported eGFRcr in m L/min/1.73m2 is based the CKD-EPI 2020 equation that does not use a race coefficient. Blood Venous blood specimen / Unknown Venipuncture / Unknown 11/12/2024 9:22 AM EDT 11/12/2024 9:22 AM EDT us Salomón Escoto MD LAB BLOOD ORDERABLES Final Resu lt [facility] [address] [place] [address] from Last 3 Months Insurance [facility] MEDICA[facility] Care Teams Project Development Coordinator Relationship Specialty Start Date End Date Chano Kidd MD [address] [facility] [address], [place] [address] PCP - General 08/27/20
--- OUTSIDE RECORDS SUMMARY | 2024-12-21 12:43 | XMS_ITS | Encounter Summary ---
Author Organization Healthcare Address [address] [place] [id number] Care Team Providers Care Recreation Therapy Teacher Name Role Phone Chano Kidd MD Primary Care Provider [phone] Encounter Details Date Type Department Care Team (Latest Contact Info) Description 11/19/2024 Travel Social History Tobacco Use Types Packs/Day Years [...] Sahil Holley documented as of this encounter Plan of Treatment Not on file documented as of this encounter Visit Diagnoses Not on filedocumented in this encounter Additional Health Concerns Assessment Noted Time PHQ-9 Depression Total Score: 0 11/20/19 9:54 AM EDT A fall risk assessment has been complete d for the patient 11/19/2024 9:54 AM EDT A Body Mass Index follow-up plan has been documented for the patient 11/20/2024 7:45 PM EDT documented as of this encounter Care Teams Recreation Therapy Teacher Relationship Specialty Start Date End Date Chano Kidd MD [address] [place] [address] PCP - General 08/27/20 documented as of this encounter
--- OUTSIDE RECORDS SUMMARY | 2024-12-21 12:43 | XMS_ITS | Encounter Summary ---
Author Organization Healthcare Address [address] [place] [id number] Care Team Providers Care Transformer Coil Winder Name Role Phone Chano Kidd MD Primary Care Provider [phone] Encounter Details Date Type Department Care Team (Latest Contact Info) Description 11/12/2024 Travel Social History Tobacco Use Types Packs/Day [...] of Assessment Author 2 11/12/2024 8:32 AM Zakiya Holley * Question Answer Date [...] Not difficult at all 11/12/2024 8:33 AM EDT Sahil Becker documented as of this encounter Plan of [...] documented as of this encounter Care Teams Transformer Coil Winder Relationship Specialty Start Date End Date Chano Kidd MD [address] [facility] [address] [address] PCP - General 08/27/20 documented as of this encounter
== END 2024-12-21 23:59 | disposition home or self-care (01) ==
LOC: RAD 12:40
PROVIDERS: PCP Family Medicine; Visit Provider Student in an Organized Health Care Education/Training Program
DX: R05.9 Cough, unspecified (principal)
CPT/HCPCS: 71046

== ENCOUNTER 2025-02-15 10:50 | Outpatient (CLI) | payer OTHER, SELFPAY ==
--- OUTSIDE RECORDS SUMMARY | 2024-01-29 11:15 | XMS_ITS ---
[facility] Address [address] [facility] [address] [place] [id number] Care Team Providers Care Sealing Machine Operator Name Role Phone Zack Garcia Primary Care Provider Vicky Christian Unavailable [phone] Allergies Allergen (clinical drug ingredient) Drug/Non Drug Allergy documented on EMR Reaction Allergy Type Onset Date Status Penicillin rash Drug Allergy Active REASON FOR VISIT pain in stomach Medications Medication SIG (Take, Route, Frequency, Duration) Notes Start Date End Date Status Ondansetron 4 MG 1 tablet on the tong ue and allow to dissolve Orally Once a day Active Carafate 1 GM 1 tablet on an empty stomach Orally Twice a day; Duration: 30 day(s) 01/29/2024 Active Albuterol Sulfate HFA 108 (9 0 Base) MCG/ACT 1 puff as needed Inhalation every 4 hrs Active Cyclobenzaprine HCl 5 MG 1 tab(s) Orally Two times a day 01/29/2024 Active Pantoprazole Sodium 40 MG 1 tablet Orall y Once a day Active Problems Problem Type SNOMED Code ICD Code Onset Dates Problem Status W/U Status Risk Notes Problem Gastritis (9759008) Gastritis (K29.70) Active confirmed Vital Signs Weight 214.2 lbs 01/29/2024 Blood pressure systolic 112 mm Hg 01/29/20 24 Blood pressure diastolic 62 mm Hg 024 Heart Rate 98 /min 01/29/2024 Height 70 in 01/29/2024 BMI 30.73 kg/m2 01/29/2024 Encounters Encounter Location Date Provider Diagnosis [facility] [address] [id number] 01/29/2024 Zack Garcia Gastritis K29.70 and Low back strain S39.012A Assessments Encounter Date Diagnosis (ICD Code) Assessment Notes Treatment Notes Treatment Clinical Notes Section Notes 01/29/2024 Gastritis (ICD-10 - K29.70) Keep appointment for GI consultation with Dr. Jim next week 01/29/2024 Low back strain (ICD-10 - S39.012A) Alternate heat and ice. Recommend gentle stretching exercises. Plan Of Treatment Medication Medication Name Sig Start Date Stop Date Notes Carafate 1 GM 1 tablet on an empty stomach Orally Twice a day; Duration: 30 day(s) 01/29/2024 Cyclobenzaprine HCl 5 MG 1 tab(s) Orally Two times a day 1 Pantoprazole Sodium 40 MG 1 tablet Orally Once a day Treatment Notes Assessment Notes Gastritis Keep appointment for GI consultation with Dr. Jim next week Low back strain Alternate heat and i ce. Recommend gentle stretching exercises. Next Appt Details Follow Up: prn, Reason: Progress Notes * RONALDO BENITEZOB:1999 (25 yo M)Acc No.[id number]:01/29/2024 Progress Notes Patient: RONALDO DONOHUE Provider: Zack Garcia M.D. :2000 A ge:23 Y S ex:Male Date:01/29/2024 Address:[address] [place] [address] [id number] Subjective: * Chief Complaints: * 1 . Pain in stomach. * HPI: G astroenterology: Allen comes in with ongoing complaints of epigastric abdominal pain. He has a significant GI history having undergone EGD in September and cholecystectomy in October. EGD reportedly showed duodenal ulcers and he was started on pantoprazole. He then had a cholecystectomy for a nonfunctioning gallbladder. He states his symptoms briefly improved but now is having recurring pain that is similar to his previous symptoms. He denies nausea or vomiting. No change in his bowel habits. He is scheduled to see Dr. Jim next week. 23 year old male presents with c/o Abdominal Pain P t presents today with c/o pain in the RUQ that sometimes comes into the right side of the low back. Pt did have his gallbladder removed in October. L ower back: He is also complaining of intermittent sharp stabbing pains in his right lower back. It is worse with certain movements. It also seems worse after he has been sedentary for a period of time. He recalls no injury. No radiating symptoms. * ROS: C ARDIOLOGY: no C hest pain. n o S hortness of breath. ? D ERMATOLOGY: no R jorje. n o H rosalie. U ROLOGY: no D ifficulty urinating. n o B lood in urine. * Medical History: H eart Murmur, Ear Tubes, Optical Neuroplasia. * Surgical History: A denoidectomy 07/19/2005, Ear Tubes , Tonsillectomy , Appendectomy, [facility] 05/04/2017, EGD 09/2023, cholecystectomy 10/2023. * Hospitalization/Major Diagno stic Procedure: C ut Both Hands- [facility] ER 11/08/09. * Family History: F ather: alive 49 yrs. M other: alive 44 yrs. P aternal Grand Father: alive. P aternal Grand Mother: alive. M aternal Grand Father: alive. M aternal Grand Mother: alive. 1 brother(s) , 1 sister(s) - healthy. . * Social History: C URRENT TOBACCO USE S moking Status: P atient does smoke, S vicky age of: 1 4,?Smoking preference: c marti, T ype of smokeless tobacco used: d ip. C affeine: no. Home smoke detector use: yes. Marital Status: Single. Past smoking status: yes, Parents smoke, exposed to 2nd hand smoke. * Medications: T aking Pantoprazole Sodium 40 MG Tablet Delayed Release 1 tablet Orally Once a day , Taking Albuterol Sulfate HFA 108 (90 Base) MCG/ACT Aerosol Solution 1 puff as needed Inhalation every 4 hrs , Taking Ondansetron 4 MG Tablet Disintegrating 1 tablet on the tongue and allow to dissolve Orally Once a day , Medication List reviewed and reconciled with the patient * Allergies: P enicillin: rash. Objective: * Vitals: W t:214.2, Temp:98.6, BP:112/62, HR:98, Nurse:MEGAN, Ht: 70, BMI:30.73. * Examination: G eneral Examination: General Appearance: N AD. H eart: R SR. L ungs:?clear to auscultation. A bdomen: soft, not distended. Epigastric tenderness.? Assessment: * Assessment: 1. G astritis - K29.70 (Primary) 2 . L ow back strain - S39.012A Plan: * Treatment: 2. L ow back strain Start Cyclobenzaprine HCl Tablet, 5 MG, 1 tab(s), Orally, Two times a day, 20. Notes: Alternate heat and ice. Recommend gentle stretching exercises. * Follow Up: p rn * Images: Billing Information: * Visit Code: 95050 Office Visit, Est Pt., Level 4. * Procedure Codes: * Electronic signature of Zack Garcia MD on 02/16/2025 at 07:59 PM EST Sign off status: Pending * Provider: Zack Garcia M.D. Date: Generated for Enedelia vaz/Elvis/eTransmitting on: 04/18/2024 07:59 PM EST History and Physical Notes * HPI (History of Present Illness) Category Sub-Category Detail Notes Category Not es Gastroenterology Abdominal Pain Pt presents tod ay with c/o pain in the RUQ that sometimes comes into the right side of the low back. Pt did have his gallbladder removed in October Examination Category Sub-Category Detail Notes Category Not es General Examination Heart: RSR Lungs: clear to auscultatio n Abdomen: soft, not distended. Epigastric tenderness General Appearance: NAD
--- OUTSIDE RECORDS SUMMARY | 2024-02-11 09:30 | XMS_ITS ---
[facility] Address [address] [place] [id number] Care Team Providers Care Print Graphic Designer Name Role Phone Zack Garcia Primary Care Provider Vicky Christian Unavailable [phone] Chano Kidd Unavailable [phone] Allergies Allergen (clinical drug ingredient) Drug/Non Drug Allergy documented on EMR Reaction Allergy Type Onset Date Status Penicillin rash Drug Allergy Active Results Component Value Reference Range Notes Influenza Screen (in house) Reviewed date:02/12/2024 11:25:50 AM Interpretation:neg Performing Lab: Notes/Report: neg results neg Covid test (in house) Reviewed date:02/11/2024 03:27:11 PM Interpretation: Performing Lab: Notes/Report: Result: Pos REASON FOR VISIT fever and body aches Medications Medication SIG (Take, Route, Frequency, Duration) Notes Start Date End Date Status Promethazine-DM 6.25-15 MG/5ML 5 ml as needed Orally every 6 hrs 02/11/2024 Active Ondansetron 4 MG 1 tablet on the tong ue and allow to dissolve Orally Once a day Active Carafate 1 GM 1 tablet on an empty stomach Orally Twice a day; Duration: 30 day(s) 01/29/2024 Active Cyclobenzaprine HCl 5 MG 1 tab(s) Orally Two times a day 01/29/2024 Active Pantoprazole Sodium 40 MG 1 tablet Orall y Once a day Active Albuterol Sulfate HFA 108 (9 0 Base) MCG/ACT 1 puff as needed Inhalation every 4 hrs Active Vital Signs Weight 213.4 lbs 02/11/2024 Blood pressure systolic 140 mm Hg 02/11/20 24 Blood pressure diastolic 70 mm Hg 024 Heart Rate 110 /min 02/11/2024 Height 70 in 02/11/2024 BMI 30.62 kg/m2 02/11/2024 Encounters Encounter Location Date Provider Diagnosis [facility] [address] [place], [place] [id number] 02/11/2024 Chano Kidd COVID-19 U07.1 Assessments Encounter Date Diagnosis (ICD Code) Assessment Notes Treatment Notes Treatment Clinical Notes Section Notes 02/11/2024 COVID-19 (ICD-10 - U07.1) Plan Of Treatment Medication Medication Name Sig Start Date Stop Date Notes Promethazine-DM 6.25-15 MG/5ML 5 ml as n eeded Orally every 6 hrs 02/11/2024 Next Appt Details Follow Up: prn, Reason: Progress Notes * RONALDO BENITEZOB:1999 (25 yo M)Acc No.[id number]:02/11/2024 Progress Notes Patient: RONALDO DONOHUE Provider: Luiza Kidd M.D. :2000 A ge:24 Y S ex:Male Date:02/11/2024 Address:[facility] [address] [place], [id number] Pcp:Zack Garcia Subjective: * Chief Complaints: * 1 . Fever and body aches. * HPI: E NT/respiratory: 24 year old male presents with c/o cough. c/o Fever P t sts this morning his temp was 100. Pt sts his symptoms started today yesterday, but got worse this morning. c/o ear pain. c/o headache. c/o body aches. Denies : sore throat. * ROS: D ERMATOLOGY: no R jorje. n o H rosalie. G ASTROENTEROLOGY: no N ausea. n o V omiting. n o D iarrhea.? U ROLOGY: no D ifficulty urinating. n o B lood in urine. * Medical History: H eart Murmur, Ear Tubes, Optical Neuroplasia. * Surgical History: A denoidectomy 07/19/2005, Ear Tubes , Tonsillectomy , Appendectomy, [facility] 05/04/2017, EGD 09/2023, cholecystectomy 10/2023. * Hospitalization/Major Diagno stic Procedure: C ut Both Hands- [facility] 11/08/2009. * Family History: F ather: alive 49 yrs. M other: alive 44 yrs. P aternal Grand Father: alive. P aternal Grand Mother: alive. M aternal Grand Father: alive. M aternal Grand Mother: alive. 1 brother(s) , 1 sister(s) - healthy. . * Social History: C URRENT TOBACCO USE S moking Status: P atient does smoke, S vicky age of: 1 4,?Smoking preference: chiquita kidd, T ype of smokeless tobacco used: d ip. C affeine: no. Home smoke detector use: yes. Marital Status: Single. Past smoking status: yes, Parents smoke, exposed to 2nd hand smoke. * Medications: T aking Albuterol Sulfate HFA 108 (90 Base) MCG/ACT Aerosol Solution 1 puff as needed Inhalation every 4 hrs , Taking Ondansetron 4 MG Tablet Disintegrating 1 tablet on the tongue and allow to dissolve Orally Once a day , Taking Carafate 1 GM Tablet 1 tablet on an empty stomach Orally Twice a day , Taking Cyclobenzaprine HCl 5 MG Tablet 1 tab(s) Orally Two times a day , Taking Pantoprazole Sodium 40 MG Tablet Delayed Release 1 tablet Orally Once a day , Medication List reviewed and reconciled with the patient * Allergies: P enicillin: rash. Objective: * Vitals: W t:213.4, Temp:98.8, BP:140/70, HR:110, O2 Sat:99% on RA, Nurse:[facility], Ht: 70, BMI:30.62. * Examination: E NT/Respiratory: General Appearance: N AD. N ose : nares patent, clear rhinorrhea. O ral cavity : erythema without exudate on pharynx. H eart : R RR, normal S1 S2. L ungs: c lear to auscultation bilaterally. Assessment: * Assessment: 1. C OVID-19 - U07.1 (Primary) Plan: * Treatment: Value Reference Range r esults neg * Houg,Barbara 02/11/2024 2:43 :25 PM > Provider reviewed results while patient in office. ?LAB: Covid test (in house) (Collection Date & Time - 02/11/2024)* Value Reference Range R esult: Pos * Amanda Fuentes 02/11/2024 2: 34:46 PM > , Provider reviewed results while patient in office. * Procedure Codes: 8 7804 Flu Test- Nasal Swab, Modifiers: QW , [address] [place], [address] COVID TEST IN HOUSE, Modifiers: QW * Follow Up: p rn * Images: Billing Information: * Visit Code: 63328 Office Visit, Est Pt., Level 3. * Procedure Codes: 72749 Flu Test- Nasal Swab. Modifiers: QW [address] [place]. [address] COVID TEST IN HOUSE. Modifiers: QW * Electronic signature of Kathy Kidd MD on 02/16/2025 at 08:01 PM EST Sign off status: Pending * Provider: Luiza Kidd M.D. Date: Generated for Enedelia vaz/Elvis/eTransmitting on: 04/18/2024 08:01 PM EST History and Physical Notes * HPI (History of Present Illness) Category Sub-Category Detail Notes Category Not es ENT/respiratory sore throat ear pain cough Fever Pt sts this morning his temp was 100. Pt sts his symptoms started today yesterday, but got worse this morning headache body aches Examination Category Sub-Category Detail Notes Category Not es ENT/Respiratory Oral cavity : erythema without exudate on pharynx Heart : RRR, normal S1 S2 Lungs: clear to auscultatio n bilaterally General Appearance: NAD Nose : nares patent, clear rhinorrhea
--- OUTSIDE RECORDS SUMMARY | 2024-02-20 09:30 | XMS_ITS ---
Author Organization [facility] Address [address] [id number] Care Team Providers Care Chief Juvenile Probation Officer Name Role Phone Zack Garcia Primary Care Provider Vicky Christian Unavailable [phone] Rimma Villalba Unavailable [phone] Allergies Allergen (clinical drug ingredient) Drug/Non Drug Allergy documented on EMR Reaction Allergy Type Onset Date Status Penicillin rash Drug Allergy Active Results Component Value Reference Range Notes Urinalysis - Inhouse Reviewed date:02/20/2024 03:28:54 PM Interpretation: Performing Lab: Notes/Report: Color/Clarity bruno/clear Leuk Neg Nitrite Neg Urobili 33 Protein Neg pH 6.5 Blood Neg Sp. Gr. 1.025 Ketone Trace Bili 1+ Gluc Neg TEN-UTI panel Reviewed date:02/22/2024 02:50:05 PM Interpretation:Negative Performing Lab: Notes/Report: Negative REASON FOR VISIT possible UTI Medications Medication SIG (Take, Route, Frequency, Duration) Notes Start Date End Date Status Albuterol Sulfate HFA 108 (9 0 Base) MCG/ACT 1 puff as needed Inhalation every 4 hrs Active Pantoprazole Sodium 40 MG 1 tablet Orall y Once a day Active Cyclobenzaprine HCl 5 MG 1 tab(s) Orally Two times a day 01/29/2024 Active Carafate 1 GM 1 tablet on an empty stomach Orally Twice a day; Duration: 30 day(s) 01/29/2024 Active Ondansetron 4 MG 1 tablet on the tong ue and allow to dissolve Orally Once a day Active Promethazine-DM 6.25-15 MG/5ML 5 ml as needed Orally every 6 hrs 02/11/2024 Active Vital Signs Weight 207.4 lbs 02/20/2024 Blood pressure systolic 110 mm Hg 02/20/20 24 Blood pressure diastolic 70 mm Hg 024 Heart Rate 82 /min 02/20/2024 Height 70 in 02/20/2024 BMI 29.76 kg/m2 02/20/2024 Encounters Encounter Location Date Provider Diagnosis [facility] [address] [place] [id number] 02/20/2024 Rim[place] Villalba Dysuria R30.0 Assessments Encounter Date Diagnosis (ICD Code) Assessment Notes Treatment Notes Treatment Clinical Notes Section Notes 02/20/2024 Dysuria (ICD-10 - R30.0) Will screen for STI's. Plan Of Treatment Treatment Notes Assessment Notes Dysuria Will screen for STI' s. Next Appt Details Follow Up: via phone to repo rt test results, Reason: Progress Notes * RONALDO BENITEZShaheenOB:1999 (25 yo M)Acc No.[id number]:02/20/2024 Progress Notes Patient: RONALDO DONOHUE Provider: SUSIE Collins :2000 A ge:24 Y S ex:Male Date:02/20/2024 Address:[address] [place], [place] [address], [id number] Pcp:Zack Garcia Subjective: * Chief Complaints: * 1 . possible UTI. * HPI: M talha Reproductive: The patient is here today with c/o urinary burning and lower abdominal pain. Pt states sometimes the pain radiates into the testicles. 24 year old male presents with c/o burning urination. Denies : hematuria. * ROS: C ARDIOLOGY: no C hest pain. n o S hortness of breath. ? D ERMATOLOGY: no R jorje. n o H rosalie. G ASTROENTEROLOGY: no V omiting. n o D iarrhea. * Medical History: H eart Murmur, Ear Tubes, Optical Neuroplasia. * Surgical History: A denoidectomy 07/19/2005, Ear Tubes , Tonsillectomy , Appendectomy, [facility] 05/04/2017, EGD 09/2023, cholecystectomy 10/2023. * Hospitalization/Major Diagno stic Procedure: C ut Both Hands- [facility] 11/08/2009. * Family History: F ather: [...] vicky age of: 1 4,?Smoking preference: c igarettes, T ype of smokeless tobacco used: d [...] tablet Orally Once a day , Taking Promethazine-DM 6.25-15 MG/5ML Syrup 5 ml as needed Orally every 6 hrs , Medication List reviewed and reconciled with the patient * Allergies: P enicillin: rash. Objective: * Vitals: W t:207.4, Temp:98.2, BP:110/70, HR:82, Nurse:[facility], Ht: 70, BMI:29.76. * Examination: G eneral Examination: General Appearance: N AD. C hest: n ormal shape and expansion. H eart: R SR. L ungs: c lear to auscultation. A bdomen: bowel sounds present, soft, ttp over the suprapubic area. B ack: no CVA tenderness. G enitalia: testes with no erythema, edema, or tenderness, , urethral meatus normal with some clear discharge. Assessment: * Assessment: 1. D ysuria - R30.0 (Primary) Plan: * Treatment: Value Reference Range C olor/Clarity bruno/clear * L euk Neg * N itrite Neg * U robili 33 * P rotein Neg * p H 6.5 * B lood Neg * S p. Gr. 1.025 * K etone Trace * B scott 1+ * G juju Neg * GinaAmanda Malika 02/20/2024 2:4 9:40 PM > , Provider reviewed results while patient in office.Rimma Villalba 02/20/2024 3:28:49 PM > ?LAB: TEN-UTI panel (Collection Date & Time - 02/21/2024)?Negative* Ally Gallegos 02/22/2024 2:49 :54 PM > pt informed of results Notes: Will screen for STI's.?? * Procedure Codes: 8 1002 Urinalysis, no micro * Follow Up: v ia phone to report test results * Images: Billing Information: * Visit Code: 71416 Office Visit, Est Pt., Level 3. * Procedure Codes: 74126 Urinalysis, no micro. * Electronic signature of SUSIE Pastor on 02/16/2025 at 08:00 PM EST Sign off status: Pending * Provider: SUSIE Collins Date: 04/21/2023 Generated for Enedelia vaz/Elvis/eTransmitting on: 04/18/2024 08:00 PM EST History and Physical Notes * HPI (History of Present Illness) Category Sub-Category Detail Notes Category Not es Male Reproductive hematuria burning urination Examination Category Sub-Category Detail Notes Category Not es General Examination Heart: RSR Lungs: clear to auscultatio n Abdomen: bowel sounds present , soft, ttp over the suprapubic area General Appearance: NAD Back: no CVA tenderness Genitalia: testes with no eryth neeru, edema, or tenderness, , urethral meatus normal with some clear discharge Chest: normal shape and exp ansion
--- OUTSIDE RECORDS SUMMARY | 2024-04-23 09:15 | XMS_ITS ---
Author Organization [facility] Address [address] [id number] Care Team Providers Care Yoke Setter Name Role Phone Zack Garcia Primary Care Provider [phone] Vicky Christian Unavailable [phone] Raman Villalbaa Unavailable [phone] Allergies Allergen (clinical drug ingredient) Drug/Non Drug Allergy documented on EMR Reaction Allergy Type Onset Date Status Penicillin rash Drug Allergy Active Results Component Value Reference Range Notes Urinalysis - Inhouse Reviewed date:04/23/2024 03:14:37 PM Interpretation: Performing Lab: Notes/Report: Color/Clarity yellow/clear Leuk neg Nitrite neg Urobili 3.2 Protein 1+ pH 7.5 Blood neg Sp. Gr. 1.020 Ketone neg Bili neg Gluc neg Ultrasound : inguinal, right Reviewed date:09/12/2024 09:28:53 AM Interpretation: Performing Lab: Notes/Report: Ultrasound : Testicles Reviewed date:05/08/2024 10:06:54 AM Interpretation:unremarkable Performing Lab: Notes/Report: unremarkable Ultrasound : Testicles Reviewed date:05/08/2024 10:06:54 AM Interpretation:unremarkable Performing Lab: Notes/Report: unremarkable REASON FOR VISIT burning when urinating Medications Medication SIG (Take, Route, Frequency, Duration) Notes Start Date End Date Status Pantoprazole Sodium 40 MG 1 tablet Orall y Once a day Active Carafate 1 GM 1 tablet on an empty stomach Orally Twice a day; Duration: 30 day(s) 01/29/2024 Active Cyclobenzaprine HCl 5 MG 1 tab(s) Orally Two times a day 01/29/2024 Not-Taking Albuterol Sulfate HFA 108 (90 Base) MCG/ACT 1 puff as needed Inhalation every 4 hrs Active Ondansetron 4 MG 1 tablet on the tongue and allow to dissolve Orally Once a day Active Promethazine-DM 6.25-15 MG/5ML 5 ml as needed Orally every 6 hrs 02/11/2024 Not-Taking Vital Signs Weight 219.2 lbs 04/23/2024 Blood pressure systolic 132 mm Hg 04/23/19 25 Blood pressure diastolic 78 mm Hg 025 Heart Rate 70 /min 04/23/2024 Height 70 in 04/23/2024 BMI 31.45 kg/m2 04/23/2024 Encounters Encounter Location Date Provider Diagnosis [facility] [address] [place] [phone] 04/23/2024 [place] Villalba Right groin pain R10 .31 Assessments Encounter Date Diagnosis (ICD Code) Assessment Notes Treatment Notes Treatment Clinical Notes Section Notes 04/23/2024 Right groin pain (ICD-10 - R10.31) Likely an inguinal hernia. Discussed with Dr. Kidd and will get a right inguinal U/S as well as a testicular ultrasound. Plan Of Treatment Treatment Notes Assessment Notes Right groin pain Likely an inguinal h ernia. Discussed with Dr. Kidd and will get a right inguinal U/S as well as a testicular ultrasound. Next Appt Details Follow Up: via phone to repo rt test results, Reason: Progress Notes * RONALDO BENITEZShaheenOB:1999 (25 yo M)Acc No.[id number]:04/23/2024 Progress Notes Patient: RONALDO DONOHUE Provider: SUSIE Collins :2000 A ge:24 Y S ex:Male Date:04/23/2024 Address:[facility] [address] [id number] Pcp:Zack Garcia Subjective: * Chief Complaints: * 1 . Burning when urinating. * HPI: M talha Reproductive: 24 year old male presents with c/o burning urination P t presents today with c/o burning with urination. Pt sts that he is having pain in the right groin area that radiates into the back and into the right testicle. Pt sts that this has been a persistent problem since he was last seen in February. It is worse when he has to lift.. * ROS: C ARDIOLOGY: no C hest pain. n o S hortness of breath. ? D ERMATOLOGY: no R jorje. n o H rosalie. G ASTROENTEROLOGY: no V omiting. n o D iarrhea. * Medical History: H eart Murmur, Ear Tubes, Optical Neuroplasia. * Surgical History: A denoidectomy 07/19/2005, Ear Tubes , Tonsillectomy , Appendectomy, [facility] 05/04/2017, EGD 09/2023, cholecystectomy 10/2023. * Hospitalization/Major Diagno stic Procedure: C ut Both Hands- [facility] 11/08/2009. * Family History: F ather: alive 50 yrs. M other: alive 45 yrs. P aternal Grand Father: alive. P aternal Grand Mother: alive. M aternal Grand Father: alive. M aternal Grand Mother: alive. 1 brother(s) , 1 sister(s) - healthy. . * Social History: C URRENT TOBACCO USE S moking Status: P atient does smoke, S vicky age of: 1 4,?Smoking preference: Cliff carranzae of smokeless tobacco used: d ip. C [...] stomach Orally Twice a day , Taking Pantoprazole Sodium 40 MG Tablet Delayed Release 1 tablet Orally Once a day , Not-Taking Cyclobenzaprine HCl 5 MG Tablet 1 tab(s) Orally Two times a day , Not-Taking Promethazine-DM 6.25-15 MG/5ML Syrup 5 ml as needed Orally every 6 hrs , Medication List reviewed and reconciled with the patient * Allergies: P enicillin: rash. Objective: * Vitals: W t:219.2, Temp:98.2, BP:132/78, HR:70, Nurse:[facility], Ht: 70, BMI:31.45. * Examination: G eneral Examination: General Appearance: N AD. C hest: n ormal shape and expansion. H eart: R SR. L ungs: c lear to auscultation. A bdomen: bowel sounds present, soft, ttp in the right inguinal area, tender in the right testicle, no testicular swelling or erythema, hernia palpable when he coughs. Assessment: * Assessment: 1. R ight groin pain - R10.31 (Primary) Plan: * Treatment: Value Reference Range C olor/Clarity yellow/clear * L euk neg * N itrite neg * U robili 3.2 * P rotein 1+ * p H 7.5 * B lood neg * S p. Gr. 1.020 * K etone neg * B scott neg * G juju neg * Ally Gallegos 04/23/2024 3:14: 33 PM > ?Imaging: Ultrasound : Testicles (Performed Date - 04/28/2024)?unremarkable * Rimma Villalba 04/23/2024 2:4 6:35 PM > Needs Kelsie Costa 04/23/2024 3:41:22 PM > No pre-cert required per [employer], prder faxed to Rimma Sen 05/08/2024 10:06:49 AM > see TE ?Imaging: Ultrasound : inguinal, right (Performed Date - 07/16/2024)* Rimma Villalba 04/23/2024 2:4 6:20 PM > Needs Kelsie Costa 04/23/2024 3:42:13 PM > no precert required per [employer], order faxed to Rimma Sen 09/12/2024 9:28:47 AM > see TE Notes: Likely an inguinal hernia. Discussed with Dr. Kidd and will get a right inguinal U/S as well as a testicular ultrasound.?? * Procedure Codes: 8 1002 Urinalysis, no micro * Follow Up: v ia phone to report test results * Images: Carlosing Information: * Visit Code: 89314 Office Visit, Est Pt., Level 3. * Procedure Codes: 96606 Urinalysis, no micro. * Electronic signature of SUSIE Pastor on 02/16/2025 at 08:00 PM EST Sign off status: Pending * Provider: SUSIE Collins Date: 0 04/23/2024 Generated for Printi ng/Faxing/eTransmitting on: 04/18/2024 08:00 PM EST History and Physical Notes * HPI (History of Present Illness) Category Sub-Category Detail Notes Category Not es Male Reproductive burning urination Pt presents today with c/o burning with urination. Pt sts that he is having pain in the right groin area that radiates into the back and into the right testicle. Pt sts that this has been a persistent problem since he was last seen in February. It is worse when he has to lift. Examination Category Sub-Category Detail Notes Category Not es General Examination Heart: RSR Lungs: clear to auscultatio n Abdomen: bowel sounds present , soft, ttp in the right inguinal area, tender in the right testicle, no testicular swelling or erythema, hernia palpable when he coughs General Appearance: NAD Chest: normal shape and exp ansion
--- OUTSIDE RECORDS SUMMARY | 2024-05-07 10:00 | XMS_ITS ---
Author Organization [facility] Address [address] [id number] Care Team Providers Care Subscription Clerk Name Role Phone Zack Garcia Primary Care Provider [phone] Vicky Christian Unavailable [phone] Rimma Villalba Unavailable [phone] Allergies Allergen (clinical drug ingredient) Drug/Non Drug Allergy documented on EMR Reaction Allergy Type Onset Date Status Penicillin rash Drug Allergy Active Results Component Value Reference Range Notes CT Scan : Abdomen & Pelvis w & w/o contrast Reviewed date:09/12/2024 09:29:02 AM Interpretation: Performing Lab: Notes/Report: Reason For Referral Diagnosis 1 Right groin pain (R1 0.31) [facility] Referring Provider First Name Rimma Referring Provider Last Name Deejay Referring Provider Speciality Physician Post Acute Care Registered Nurse Referred Provider Surgery, . Referred Provider Specialty General Surg leslie General Notes Rimma Villalba 05/07 3:40:19 PM > Pt needs an appt with Dr. Swanson.Tena Brynn 05/08/2024 9:01:06 AM > 05/14 at 01:30pm; patient informed Referral Priority Routine REASON FOR VISIT pain is worse Medications Medication SIG (Take, Route, Frequency, Duration) Notes Start Date End Date Status Cyclobenzaprine HCl 5 MG 1 tab(s) Orally Two times a day 01/29/2024 Not-Taking Promethazine-DM 6.25-15 MG/5ML 5 ml as needed Orally every 6 hrs 02/11/2024 Not-Taking Ondansetron 4 MG 1 tablet on the tongue and allow to dissolve Orally Once a day Active Carafate 1 GM 1 tablet on an empty stomach Orally Twice a day; Duration: 30 day(s) 01/29/2024 Active Pantoprazole Sodium 40 MG 1 tablet Orall y Once a day Active Albuterol Sulfate HFA 108 (90 Base) MCG/ACT 1 puff as needed Inhalation every 4 hrs Active Vital Signs Weight 209.2 lbs 05/07/2024 Blood pressure systolic 128 mm Hg 05/07/19 25 Blood pressure diastolic 84 mm Hg 025 Heart Rate 85 /min 05/07/2024 Height 70 in 05/07/2024 BMI 30.01 kg/m2 05/07/2024 Encounters Encounter Location Date Provider Diagnosis [facility] [address] [place] [id number] 05/07/2024 Rimma Villalba Right groin pain R10 .31 Assessments Encounter Date Diagnosis (ICD Code) Assessment Notes Treatment Notes Treatment Clinical Notes Section Notes 05/07/2024 Right groin pain (ICD-10 - R10.31) I reviewed the scrotal U/S which showed only tiny hydroceles. There was no report on the inguinal area. I spoke with radiology and the person who did his U/S says she did get images of that area and they are going to call the radiology group and see if they can comment on that area as well. Patient is still having pain that seems to be getting worse. Will get a CT and make referral to general surgery. Plan Of Treatment Treatment Notes Assessment Notes Right groin pain I reviewed the scrot al U/S which showed only tiny hydroceles. There was no report on the inguinal area. I spoke with radiology and the person who did his U/S says she did get images of that area and they are going to call the radiology group and see if they can comment on that area as well. Patient is still having pain that seems to be getting worse. Will get a CT and make referral to general surgery. Referrals Referral Date Details 05/07/2024 05/07/2024, . Surger y Next Appt Details Follow Up: via phone to repo rt test results, Reason: Progress Notes * RONALDO BENITEZOB:1999 (25 yo M)Acc No.[id number]:05/07/2024 Progress Notes Patient: RONALDO DONOHUE Provider: SUSIE Collins :2000 A ge:24 Y S ex:Male Date:05/07/2024 Address:[place], [id number] Pcp:Zack Garcia Subjective: * Chief Complaints: * 1 . Pain is worse. * HPI: M talha Reproductive: 24 year old male presents with c/o testicular pain P t presents today with c/o continued pains. Pt sts that he is having continued pains in the lower abdomen and right testicle. There was concern at last OV for an inguinal hernia. Pt sts that yesterday he got out of a truck and felt both of his testicles ascend up. Pt sts that he was unable to stand up straight afterwards and had severe pain in the right groin area. * ROS: C ARDIOLOGY: no C hest pain. n o S hortness of breath. ? D ERMATOLOGY: no R jorje. n o H rosalie. G ASTROENTEROLOGY: no V omiting. n o D iarrhea. * Medical History: H eart Murmur, Ear Tubes, Optical Neuroplasia. * Surgical History: A denoidectomy 07/19/2005, Ear Tubes , Tonsillectomy , Appendectomy, [facility] 05/04/2017, EGD 09/2023, cholecystectomy 10/2023. * Hospitalization/Major Diagno stic Procedure: C ut Both Hands- [facility] ER 11/08/2009. * Family History: F ather: [...] P enicillin: rash. Objective: * Vitals: W t:209.2, Temp:98.3, BP:128/84, HR:85, Nurse:MEGAN, Ht: 70, BMI:30.01. * Examination: G eneral Examination: General Appearance: N AD. C hest: n ormal shape and expansion. H eart: R SR. L ungs: c lear to auscultation. A bdomen: b owel sounds present, soft, ttp in the right inguinal area, tender in the right testicle, no testicular swelling or erythema. Assessment: * Assessment: 1. R ight groin pain - R10.31 (Primary) Plan: * Treatment: Notes: I reviewed the scrotal U/S which showed only tiny hydroceles. There was no report on the inguinal area. I spoke with radiology and the person who did his U/S says she did get images of that area and they are going to call the radiology group and see if they can comment on that area as well. Patient is still having pain that seems to be getting worse. Will get a CT and make referral to general surgery.? Referral To:. Surgery??General Surgery ?Reason: * Follow Up: v ia phone to report test results * Images: Billing Information: * Visit Code: 23421 Office Visit, Est Pt., Level 3. * Procedure Codes: * Electronic signature of SUSIE Pastor on 02/16/2025 at 07:59 PM EST Sign off status: Pending * Provider: SUSIE Collins Date: 0 05/07/2024 Generated for Anandi татьяна/Elvis/Kaismitting on: 04/18/2024 07:59 PM EST History and Physical Notes * HPI (History of Present Illness) Category Sub-Category Detail Notes Category Not es Male Reproductive testicular pain Pt presents to day with c/o continued pains. Pt sts that he is having continued pains in the lower abdomen and right testicle. There was concern at last OV for an inguinal hernia. Pt sts that yesterday he got out of a truck and felt both of his testicles ascend up. Pt sts that he was unable to stand up straight afterwards and had severe pain in the right groin area Examination Category Sub-Category Detail Notes Category Not es General Examination Heart: RSR Lungs: clear to auscultatio n Abdomen: bowel sounds present , soft, ttp in the right inguinal area, tender in the right testicle, no testicular swelling or erythema General Appearance: NAD Chest: normal shape and exp ansion Consultation Request Notes Referral Date Referring Provider Referred Provider Not es 05/07/2024 Rimma Villalba Surgery, .
--- OUTSIDE RECORDS SUMMARY | 2024-05-26 10:30 | XMS_ITS ---
Author Organization [facility] Address [address] [id number] Care Team Providers Care Plasma Table Operator Name Role Phone Zakc Garcia Primary Care Provider Vicky Christian Unavailable [phone] Allergies Allergen (clinical drug ingredient) Drug/Non Drug Allergy documented on EMR Reaction Allergy Type Onset Date Status Penicillin rash Drug Allergy Active Results Component Value Reference Range Notes Influenza Screen (in house) Reviewed date:05/26/2024 06:53:41 PM Interpretation:neg Performing Lab: Notes/Report: neg results neg Rapid Strep- Inhouse Reviewed date:05/26/2024 06:54:01 PM Interpretation:neg Performing Lab: Notes/Report: neg strep test neg CBC Fingerstick (in house) Reviewed date:05/26/2024 06:54:16 PM Interpretation: Performing Lab: Notes/Report: wbc 13.5 3.5 - 10 lym 17.2 15 - 50 mid 5.3 2 - 15 gran 77.5 35 - 80 rbc 5.18 3.5 - 5.5 hgb 15.4 11.5 - 16.5 hct 45.3 35 - 55 mcv 87.5 75 - 100 mch 29.7 25 - 35 mchc 33.9 31 - 38 plat 215 100 - 400 Covid test (in house) Reviewed date:05/26/2024 06:53:27 PM Interpretation:neg Performing Lab: Notes/Report: neg Result: neg REASON FOR VISIT poss strep or flu Medications Medication SIG (Take, Route, Frequency, Duration) Notes Start Date End Date Status Azithromycin 500 MG 1 tablet Orally qd; Duration: 5 day(s) 05/26/2024 Active Pantoprazole Sodium 40 MG 1 tablet Orall y Once a day Active Carafate 1 GM 1 tablet on an empty stomach Orally Twice a day; Duration: 30 day(s) 01/29/2024 Active Ondansetron 4 MG 1 tablet on the tong ue and allow to dissolve Orally Once a day Active Albuterol Sulfate HFA 108 (90 Base) MCG/ACT 1 puff as needed Inhalation every 4 hrs Active Vital Signs Weight 207.6 lbs 05/26/2024 Blood pressure systolic 118 mm Hg 05/26/19 25 Blood pressure diastolic 68 mm Hg 025 Heart Rate 92 /min 05/26/2024 Height 70 in 05/26/2024 BMI 29.78 kg/m2 05/26/2024 Encounters Encounter Location Date Provider Diagnosis [facility] [address] [facility] [address] [facility] [place] [id number] 05/26/2024 Vicky Christian Pharyngitis J02.9 Assessments Encounter Date Diagnosis (ICD Code) Assessment Notes Treatment Notes Treatment Clinical Notes Section Notes 05/26/2024 Pharyngitis (ICD-10 - J02.9) gargles q2h while awake with hot salt water, fluids, rest, supportive measures for fever/symptom relief Plan Of Treatment Medication Medication Name Sig Start Date Stop Date Notes Azithromycin 500 MG 1 tablet Orally qd; Duration: 5 day(s) 05/26/2024 Treatment Notes Assessment Notes Pharyngitis gargles q2h while aw jin with hot salt water, fluids, rest, supportive measures for fever/symptom relief Next Appt Details Follow Up: prn, Reason: Progress Notes * RONALDO BENITEZShaheenOB:1999 (25 yo M)Acc No.[id number]:05/26/2024 Progress Notes Patient: RONALDO DONOHUE Provider: NIMCO Bustamante :2000 A ge:24 Y S ex:Male Date:05/26/2024 Address:[address] [place] [address] [id number] Pcp:Zack Garcia Subjective: * Chief Complaints: * 1 . Poss strep or flu. * HPI: E NT/respiratory: 24 year old male presents with c/o sore throat. c/o cough. c/o Short of Breath. c/o smoking 1 /2 PPD. c/o body aches. Denies : Fever P t sts he has had chills . D enies : ear pain. Pt symptoms started last night; decreased appetite; drinking fluids well. * ROS: C ARDIOLOGY: no C hest pain. n o S hortness of breath. ? D ERMATOLOGY: no R jorje. n o H rosalie. G ASTROENTEROLOGY: no V omiting. n o D iarrhea. * Medical History: H eart Murmur, Ear Tubes, Optical Neuroplasia. * Surgical History: A denoidectomy 07/19/2005, Ear Tubes , Tonsillectomy , Appendectomy, [facility] 05/04/2017, EGD 09/2023, cholecystectomy 10/2023. * Hospitalization/Major Diagno stic Procedure: C ut Both Hands- [facility] ER 11/08/2009. * Family History: F [...] P enicillin: rash. Objective: * Vitals: W t:207.6, Temp:98.5, BP:118/68, HR:92, O2 Sat:98% on RA, Nurse:mmkenji, Ht: 70, BMI:29.78. * Examination: E NT/Respiratory: General Appearance: well nourished and hydrated, NAD, alert. E yes: sclera and conjunctiva clear. E ars: auditory canals normal bilaterally, tympanic membranes normal bilaterally. N ose : nares patent. O ral cavity : erythema without exudate on pharynx. N april : supple, no cervical lymphadenopathy. H eart : RRR. L ungs: CTAB A&P. Assessment: * Assessment: 1. P pawan - J02.9 (Primary) Plan: * Treatment: * Labs: * L ab: Covid test (in house) (Collection Date & Time - 05/26/2024) n eg Value Reference Range R esult: neg * Barbara Villagomez 05/26/2024 3:48: 58 PM > Provider reviewed results while patient in office.Vicky Christian 05/26/2024 6:53:25 PM > ?Lab: Influenza Screen (in house) (Collection Date & Time - 05/26/2024)?neg * Value Reference Range r esults neg * Barbara Villagomez 05/26/2024 3:49: 26 PM > Provider reviewed results while patient in office.Vicky Christian 05/26/2024 6:53:40 PM > ?Lab: Rapid Strep- Inhouse (Collection Date & Time - 05/26/2024)?neg* Value Reference Range s trep test neg * Barbara Villagomez 05/26/2024 3:49: 52 PM > Provider reviewed results while patient in office.Vicky Christian 05/26/2024 6:53:57 PM > ?Lab: CBC Fingerstick (in house) (Collection Date & Time - 05/26/2024)* Value Reference Range w bc 13.5 3.5 - 10 * l ym 17.2 15 - 50 * m id 5.3 2 - 15 * g ran 77.5 35 - 80 * r bc 5.18 3.5 - 5.5 * h gb 15.4 11.5 - 16.5 * h ct 45.3 35 - 55 * m cv 87.5 75 - 100 * m ch 29.7 25 - 35 * m chc 33.9 31 - 38 * p lat 215 100 - 400 * Barbara Villagomez 05/26/2024 3:50: 42 PM > Provider reviewed results while patient in office.Vicky Christian 05/26/2024 6:54:14 PM > * Procedure Codes: 9 [address] [place], [address] Flu Test- Nasal Swab, Modifiers: QW , 31953 STREP A ASSAY W/OPTIC, Modifiers: QW , 86098 COVID TEST IN HOUSE, Modifiers: QW , 77558 CAPILLARY BLOOD DRAW, 01204 CBC WITH AUTO DIFF * Follow Up: p rn * Images: Billing Information: * Visit Code: 18804 Office Visit, Est Pt., Level 3. * Procedure Codes: [address] [place]. [address] Flu Test- Nasal Swab. Modifiers: QW 55849 STREP A ASSAY W/OPTIC. Modifiers: QW 01812 COVID TEST IN HOUSE. Modifiers: QW 89669 CAPILLARY BLOOD DRAW. 35334 CBC WITH AUTO DIFF. * Electronic signature of Bailee hemphill AILYN Christian on 02/16/2025 at 08:00 PM EST Sign off status: Pending * Provider: NIMCO Bustamante Date: 0 05/26/2024 Generated for Enedelia vaz/Elvis/Jaylen on: 1 04/18/2024 08:00 PM EST History and Physical Notes * HPI (History of Present Illness) Category Sub-Category Detail Notes Category Not es ENT/respiratory sore throat Pt symptoms started last night; decreased appetite; drinking fluids well ear pain Short of Breath cough Fever Pt sts he has had ch ills smoking 1/2 PPD body aches Examination Category Sub-Category Detail Notes Category Not es ENT/Respiratory Oral cavity : erythema without exudate on pharynx Ears: auditory canals norm al bilaterally, tympanic membranes normal bilaterally Neck : supple, no cervical lymphadenopathy Heart : RRR Lungs: CTAB A&P General Appearance: well nourished and h ydrated, NAD, alert Nose : nares patent Eyes: sclera and conjuncti va clear
--- OUTSIDE RECORDS SUMMARY | 2024-07-25 09:15 | XMS_ITS ---
[facility] [address] [place] [id number] Care Team Providers Care Wirer Name Role Phone Zack Garcia Primary Care Provider Vicky Christian Unavailable [phone] Rimma Villalba Unavailable [phone] REASON FOR VISIT lymph node in pelvis Medications Medication SIG (Take, Route, Frequency, Duration) Notes Start Date End Date Status Ondansetron 4 MG 1 tablet on the tong ue and allow to dissolve Orally Once a day Active Carafate 1 GM 1 tablet on an empty stomach Orally Twice a day; Duration: 30 day(s) 01/29/2024 Active Albuterol Sulfate HFA 108 (90 Base) MCG/ACT 1 puff as needed Inhalation every 4 hrs Active Pantoprazole Sodium 40 MG 1 tablet Orall y Once a day Active Vital Signs Weight 201.8 lbs 07/25/2024 Blood pressure systolic 118 mm Hg 07/26/19 25 Blood pressure diastolic 68 mm Hg 025 Heart Rate 84 /min 07/25/2024 Height 70 in 07/25/2024 BMI 28.95 kg/m2 07/25/2024 Encounters Encounter Location Date Provider Diagnosis [address] [address] [place] [id number] 07/25/2024 Rimma Villalba Inguinal adenopathy R59.0 Assessments Encounter Date Diagnosis (ICD Code) Assessment Notes Treatment Notes Treatment Clinical Notes Section Notes 07/25/2024 Inguinal adenopathy (ICD-10 - R59.0) Patient will need to go back and see Dr. Swanson to see what the next step will be with the inguinal lymph nodes. Plan Of Treatment Treatment Notes Assessment Notes Inguinal adenopathy Patient will need to go back and see Dr. Swanson to see what the next step will be with the inguinal lymph nodes. Next Appt Details Follow Up: with Aria Pagan ason: Progress Notes * RONALDO BENITEZeDOB:1999 (25 yo M)Acc No.[id number]:07/25/2024 Progress Notes Patient: RONALDO DONOHUE Provider: SUSIE Collins :2000 A ge:24 Y S ex:Male Date:07/25/2024 Address:[address] [place] [address], [place], [id number] Pcp:Zack Garcia Subjective: * Chief Complaints: * 1 . Lymph node in pelvis. * HPI: H PI: 24 year old male presents with c/o Patient is here today for?Pt sts he had an Ultrasound last week and one before that showing a lymph node in the right inguinal area. He has seen Dr. Swanson but he has not seen him since the last U/S. He has also had a CT scan. * Medical History: * Medications: T aking Albuterol Sulfate HFA [...] List reviewed and reconciled with the patient Objective: * Vitals: W t: 201.8, Temp: 98.3, BP: 118/68, HR: 84, Nurse: mmkenji, Ht: 70, BMI:28.95. * Examination: G eneral Examination: General Appearance: N AD. C hest: n ormal shape and expansion. H eart: R SR. L ungs: c lear to auscultation. A bdomen: b owel sounds present, soft, ttp in the right inguinal area. Assessment: * Assessment: 1. I nguinal adenopathy - R59.0 (Primary) S pecify :right Plan: * Treatment: * Follow Up: w marbella Swanson * Images: Billing Information: * Visit Code: 73452 Office Visit, Est Pt., Level 3. * Procedure Codes: * Electronic signature of SUSIE Pastor on 02/16/2025 at 07:59 PM EST Sign off status: Pending * Provider: SUSIE Collins Date: 0 07/25/2024 Generated for Enedelia vaz/Elvis/eTransmitting on: 1 04/18/2024 07:59 PM EST History and Physical Notes * HPI (History of Present Illness) Category Sub-Category Detail Notes Category Not es HPI Patient is here today for Pt sts he had an Ultrasound last week and one before that showing a lymph node in the right inguinal area. He has seen Dr. Swanson but he has not seen him since the last U/S. He has also had a CT scan Examination Category Sub-Category Detail Notes Category Not es General Examination Heart: RSR Lungs: clear to auscultatio n Abdomen: bowel sounds present , soft, ttp in the right inguinal area General Appearance: NAD Chest: normal shape and exp ansion
--- OUTSIDE RECORDS SUMMARY | 2024-12-22 08:45 | XMS_ITS ---
Author Organization [facility] Address [address] [id number] Care Team Providers Care Information Technology Project Manager Name Role Phone Zack Garcia Primary Care Provider GinoEliezerVicky Unavailable [phone] Allergies Allergen (clinical drug ingredient) Drug/Non Drug Allergy documented on EMR Reaction Allergy Type Onset Date Status Penicillin rash Drug Allergy Active Results Component Value Reference Range Notes Influenza Screen (in house) Reviewed date:12/22/2024 06:36:10 PM Interpretation:Negative Performing Lab: Notes/Report: Negative results neg CBC Fingerstick (in house) Reviewed date:12/22/2024 06:36:46 PM Interpretation: Performing Lab: Notes/Report: wbc 14.9 3.5 - 10 lym 32.1% 15 - 50 mid 7.3% 2 - 15 gran 60.6% 35 - 80 rbc 5.58 3.5 - 5.5 hgb 16.7 11.5 - 16.5 hct 49.1 35 - 55 mcv 87.9 75 - 100 mch 30.0 25 - 35 mchc 34.1 31 - 38 plat 159 100 - 400 Covid test (in house) Reviewed date:12/22/2024 06:36:31 PM Interpretation:Negative Performing Lab: Notes/Report: Negative Result: neg REASON FOR VISIT Vomiting, fever coughing Medications Medication SIG (Take, Route, Frequency, Duration) Notes Start Date End Date Status Albuterol Sulfate HFA 108 (90 Base) MCG/ACT 1 puff as needed Inhalation every 4 hrs Active Albuterol Sulfate HFA 108 (90 Base) MCG/ACT 1 puff as needed Inhalation every 4 hrs As needed 12/22/2024 Active Cefuroxime Axetil 500 MG 1 tablet Orally every 12 hrs; Duration: 5 day(s) 12/22/2024 Active Benzonatate 200 MG 1 capsule as needed Orally Three times a day As needed 12/22/2024 Active Pantoprazole Sodium 40 MG 1 tablet Orall y Once a day Active Vital Signs Weight 191 lbs 12/22/2024 Blood pressure systolic 112 mm Hg 12/23/19 25 Blood pressure diastolic 60 mm Hg 025 Heart Rate 68 /min 12/22/2024 Height 70 in 12/22/2024 BMI 27.4 kg/m2 12/22/2024 Encounters Encounter Location Date Provider Diagnosis [facility] [address] [facility] [address] [id number] 12/22/2024 Vicky Christian Acute upper respiratory infection 465.9 Assessments Encounter Date Diagnosis (ICD Code) Assessment Notes Treatment Notes Treatment Clinical Notes Section Notes 12/22/2024 Acute upper respiratory infection (ICD-10 - 465.9) no smoking fluids, rest, supportive measures for fever/symptom relief Plan Of Treatment Medication Medication Name Sig Start Date Stop Date Notes Albuterol Sulfate HFA 108 (9 0 Base) MCG/ACT 1 puff as needed Inhalation every 4 hrs 12/22/2024 Cefuroxime Axetil 500 MG 1 tablet Orally every 12 hrs; Duration: 5 day(s) 12/22/2024 Benzonatate 200 MG 1 capsule as needed Orally Three times a day 12/22/2024 Treatment Notes Assessment Notes Acute upper respiratory infection no smo eva fluids, rest, supportive measures for fever/symptom relief Next Appt Details Follow Up: prn, Reason: Progress Notes * RONALDO BENITEZShaheenOB:1999 (25 yo M)Acc No.[id number]:12/22/2024 Progress Notes Patient: RONALDO DONOHUEe Provider: NIMCO Bustamante :2000 A ge:24 Y S ex:Male Date:12/22/2024 Address:[address] [place] [address] [id number] Pcp:Zack Garcia Subjective: * Chief Complaints: * 1 . Vomiting, fever coughing. * HPI: E NT/respiratory: Pt states these symptoms stared Sunday and getting worse. Pt states he went to Clinic Sunday, and they did a Flu test, and it was neg but sent him to ER to get a chest X-ray. Pt states they called him today and the chest X-ray was clear; has been able to eat and drink. 24 year old male presents with c/o cough g reenish yellow sputum production. c/o nasal congestion s neezing, all the time. c/o Fever o ff and on,101-103. c/o ear pain l eft side. c/o rhinorrhea. c/o post nasal drainage. c/o Chest Pain s harp on the right upper chest. c/o Short of Breath. c/o headache. c/o chest congestion. c/o smoking 1 ppd. c/o dizziness o ff balance. c/o body aches aching all over . c/o ear stopped up b oth. c/o ringing in ear b oth. Denies : sore throat. D enies : Ear Drainage. G astroenterology: c/o Nausea w ithout food, with food. c/o Diarrhea?watery. Denies : Vomiting. * ROS: D ERMATOLOGY: no R jorje. n o H rosalie. G ASTROENTEROLOGY: no N ausea. n o V omiting. n o D iarrhea.? U ROLOGY: no D ifficulty urinating. n o B lood in urine. * Medical History: H eart Murmur, Ear Tubes, Optical Neuroplasia. * Surgical History: A denoidectomy 07/19/2005, Ear Tubes , Tonsillectomy , Appendectomy, [facility] 05/04/2017, EGD 09/2023, cholecystectomy 10/2023. * Hospitalization/Major Diagno stic Procedure: C ut Both Hands- [facility] ER 11/08/2009. * Family History: F [...] vicky age of: 1 4,?Smoking preference: Cliff carranza ype of smokeless tobacco used: d ip. C affeine: no. Home smoke detector use: yes. Marital Status: Single. Past smoking status: yes, Parents smoke, exposed to 2nd hand smoke. * Medications: T aking Albuterol Sulfate HFA 108 (90 Base) MCG/ACT Aerosol Solution 1 puff as needed Inhalation every 4 hrs , Taking Pantoprazole Sodium 40 MG Tablet Delayed Release 1 tablet Orally Once a day , Discontinued Ondansetron 4 MG Tablet Disintegrating 1 tablet on the tongue and allow to dissolve Orally Once a day , Discontinued Carafate 1 GM Tablet 1 tablet on an empty stomach Orally Twice a day , Medication List reviewed and reconciled with the patient * Allergies: P enicillin: rash. Objective: * Vitals: W t: 191, Temp: 97.4, BP: 112/60, HR: 68, O2 Sat: 97% on RA, Nurse: devyn, Ht: 70, BMI:27.4. * Examination: G eneral Examination: General Appearance: N AD, alert, pleasant; sniffling. H EENT: s clera and conjunctiva clear, PERRLA, TM's normal, translucent. O ral cavity: m ucosa moist and WNL, mild erythema with PND. N april: s upple, no lymphadenopathy. H eart: R RR. L ungs: C TAB A&P. N eurologic Exam: a lert and oriented. Assessment: * Assessment: 1. A cute upper respiratory infection - 465.9 (Primary) Plan: * Treatment: Value Reference Range w bc 14.9 3.5 - 10 * l ym 32.1% 15 - 50 * m id 7.3% 2 - 15 * g ran 60.6% 35 - 80 * r bc 5.58 3.5 - 5.5 * h gb 16.7 11.5 - 16.5 * h ct 49.1 35 - 55 * m cv 87.9 75 - 100 * m ch 30.0 25 - 35 * m chc 34.1 31 - 38 * p lat 159 100 - 400 * Hannah Reardon 12/22/2024 03 :49:03 PM EDT > Provider reviewed results while patient in office.Faye Christianharine 12/22/2024 06:36:42 PM EDT > Notes: no smoking fluids, rest, supportive measures for fever/symptom relief?? * Labs: * L ab: Covid test (in house) (Collection Date & Time - 12/22/2024) N egative Value Reference Range R esult: neg * Hannah Reardon 12/22/2024 03 :48:12 PM EDT > Provider reviewed results while patient in office.Faye Christianharine 12/22/2024 06:36:27 PM EDT > ?Lab: Influenza Screen (in house) (Collection Date & Time - 12/22/2024) ?Negative* Value Reference Range r esults neg * Hannah Reardon 12/22/2024 03 :48:31 PM EDT > Provider reviewed results while patient in office.ChristianFayeVicky 12/22/2024 06:36:06 PM EDT > * Procedure Codes: 3 6416 CAPILLARY BLOOD DRAW, 51282 CBC WITH AUTO DIFF, 56178 Flu Test- Nasal Swab, Modifiers: QW , 66132 COVID TEST IN HOUSE, Modifiers: QW , 3074F SYST BP LT 130 MM HG, 3078F DIAST BP < 80 MM HG * Follow Up: p rn * Images: Billing Information: * Visit Code: 53852 Office Visit, Est Pt., Level 3. * Procedure Codes: 50521 CAPILLARY BLOOD DRAW. 35163 CBC WITH AUTO DIFF. 62175 Flu Test- Nasal Swab. Modifiers: QW 31102 COVID TEST IN HOUSE. Modifiers: QW 3074F SYST BP LT 130 MM HG. 3078F DIAST BP < 80 MM HG. * Electronic signature of Bailee Christian APRN on 02/16/2025 at 08:01 PM EST Sign off status: Pending * Provider: NIMCO Bustamante Date: 0 12/22/2024 Generated for Enedelia vaz/Elvis/Luisitting on: 1 04/18/2024 08:01 PM EST History and Physical Notes * HPI (History of Present Illness) Category Sub-Category Detail Notes Category Not es ENT/respiratory sore throat ear pain left side Short of Breath Chest Pain sharp on the right u pper chest cough greenish yellow sput um production Fever off and on,101-103 post nasal drainage headache chest congestion rhinorrhea nasal congestion sneezing, all the ti me smoking 1 ppd dizziness off balance body aches aching all over ear stopped up both ringing in ear both Ear Drainage Gastroenterology Vomiting Diarrhea watery Nausea without food, with f ood Examination Category Sub-Category Detail Notes Category Not es General Examination HEENT: sclera and c onjunctiva clear, PERRLA, TM's normal, translucent Heart: RRR Lungs: CTAB A&P General Appearance: NAD, alert, pleasant ; sniffling Neurologic Exam: alert and oriented Neck: supple, no lymphaden opathy Oral cavity: mucosa moist and WNL , mild erythema with PND
--- OUTSIDE RECORDS SUMMARY | 2024-12-24 08:30 | XMS_ITS ---
Author Organization [facility] Address [address] [id number] Care Team Providers Care Funding Coordinator Name Role Phone Zack Garcia Primary Care Provider Vicky Christian Unavailable [phone] Rimma Villalba Unavailable [phone] Allergies Allergen (clinical drug ingredient) Drug/Non Drug Allergy documented on EMR Reaction Allergy Type Onset Date Status Penicillin rash Drug Allergy Active Results Component Value Reference Range Notes CBC Fingerstick (in house) Reviewed date:12/26/2024 12:12:30 AM Interpretation: Performing Lab: Notes/Report: wbc 12.3 3.5 - 10 lym 30.9% 15 - 50 mid 6.8% 2 - 15 gran 62.3% 35 - 80 rbc 5.43 3.5 - 5.5 hgb 16.2 11.5 - 16.5 hct 47.9 35 - 55 mcv 88.1 75 - 100 mch 29.8 25 - 35 mchc 33.8 31 - 38 plat 174 100 - 400 REASON FOR VISIT still not feeling well Medications Medication SIG (Take, Route, Frequency, Duration) Notes Start Date End Date Status Benzonatate 200 MG 1 capsule as needed Orally Three times a day As needed Active Cefuroxime Axetil 500 MG 1 tablet Orally every 12 hrs Active Albuterol Sulfate HFA 108 (90 Base) MCG/ACT 1 puff as needed Inhalation every 4 hrs As needed Active Pantoprazole Sodium 40 MG 1 tablet Orall y Once a day Active Albuterol Sulfate HFA 108 (90 Base) MCG/ACT 1 puff as needed Inhalation every 4 hrs Active Zithromax Z-Aram 250 MG 2 pills first day then one daily for 4 days orally as directed; Duration: 5 days 12/24/2024 Active Vital Signs Weight 193.2 lbs 12/24/2024 Blood pressure systolic 120 mm Hg 12/25/19 25 Blood pressure diastolic 62 mm Hg 025 Heart Rate 82 /min 12/24/2024 Height 70 in 12/24/2024 BMI 27.72 kg/m2 12/24/2024 Encounters Encounter Location Date Provider Diagnosis [facility] [address] [place], [place] [id number] 12/24/2024 Rimma Villalba Acute upper respirat ory infection 465.9 Assessments Encounter Date Diagnosis (ICD Code) Assessment Notes Treatment Notes Treatment Clinical Notes Section Notes 12/24/2024 Acute upper respiratory infection (ICD-10 - 465.9) Plan Of Treatment Medication Medication Name Sig Start Date Stop Date Notes Benzonatate 200 MG 1 capsule as needed Orally Three times a day Cefuroxime Axetil 500 MG 1 tablet Orally every 12 hrs Albuterol Sulfate HFA 108 (9 0 Base) MCG/ACT 1 puff as needed Inhalation every 4 hrs Zithromax Z-Aram 250 MG 2 pills first day then one daily for 4 days orally as directed; Duration: 5 days 12/24/2024 Next Appt Details Follow Up: prn, Reason: Progress Notes * RONALDO BENITEZOB:1999 (25 yo M)Acc No.[id number]:12/24/2024 Progress Notes Patient: RONALDO DONOHUE Provider: SUSIE Collins :2000 A ge:24 Y S ex:Male Date:12/24/2024 Address:[place], [id number] Pcp:Zack Garcia Subjective: * Chief Complaints: * 1 . Still not feeling well. * HPI: E NT/respiratory: Pt was in here Friday 12/22, and he has tested for Covid and Flu and was negative. Pt states he is no better and having more symptoms. 24 year old male presents with c/o cough greenish yellow sputum production. c/o Short of Breath. c/o headache r ight sided. c/o dizziness o ff balance. c/o body aches aching all over . Denies : sore throat. D enies : nasal congestion. D enies : Fever. D enies : ear pain. D enies : Chest Pain. D enies : chest congestion. D enies : ear stopped up. D enies : ringing in ear. G astroenterology: c/o Nausea w ith food, without food. c/o Vomiting.? c/o Diarrhea w atery. * ROS: D ERMATOLOGY: no R jorje. n o H rosalie. G ASTROENTEROLOGY: no N ausea. n o V omiting. n o D iarrhea.? U ROLOGY: no D ifficulty urinating. n o B lood in urine. * Medical History: H eart Murmur, Ear Tubes, Optical Neuroplasia. * Surgical History: A denoidectomy 07/19/2005, Ear Tubes , Tonsillectomy , Appendectomy, [facility] 05/04/2017, EGD 09/2023, cholecystectomy 10/2023. * Hospitalization/Major Diagno stic Procedure: C ut Both Hands- [facility] ER 11/08/2009. * Family History: F [...] as needed Inhalation every 4 hrs As needed, Taking Cefuroxime Axetil 500 MG Tablet 1 tablet Orally every 12 hrs , Taking Benzonatate 200 MG Capsule 1 capsule as needed Orally Three times a day As needed, Medication List reviewed and reconciled with the patient * Allergies: P enicillin: rash. Objective: * Vitals: W t: 193.2, Temp: 97.5, BP: 120/62, HR: 82, O2 Sat: 96% on RA, Nurse: devyn, Ht: 70, BMI:27.72. * Examination: E NT/Respiratory: General Appearance: N AD. E ars: a uditory canals normal bilaterally, TM's WNL. N ose : t urbinates red, congested. S inuses : t arturo maxillary sinuses bilaterally. O ral cavity : e rythema without exudate on pharynx. N april : n o cervical lymphadenopathy. H eart : R RR, normal S1 S2, no murmurs. L ungs:?clear to auscultation bilaterally. Assessment: * Assessment: 1. A cute upper respiratory infection - 465.9 (Primary) Plan: * Treatment: Value Reference Range w bc 12.3 3.5 - 10 * l ym 30.9% 15 - 50 * m id 6.8% 2 - 15 * g ran 62.3% 35 - 80 * r bc 5.43 3.5 - 5.5 * h gb 16.2 11.5 - 16.5 * h ct 47.9 35 - 55 * m cv 88.1 75 - 100 * m ch 29.8 25 - 35 * m chc 33.8 31 - 38 * p lat 174 100 - 400 * Hannah Reardon 12/24/2024 0 1:39:00 PM EDT > Provider reviewed results while patient in office. * Procedure Codes: 3 6416 CAPILLARY BLOOD DRAW, 26013 CBC WITH AUTO DIFF, 3074F SYST BP LT 130 MM HG, 3078F DIAST BP < 80 MM HG * Follow Up: p rn * Images: Billing Information: * Visit Code: 20665 Office Visit, Est Pt., Level 3. * Procedure Codes: 75780 CAPILLARY BLOOD DRAW. 87256 CBC WITH AUTO DIFF. 3074F SYST BP LT 130 MM HG. 3078F DIAST BP < 80 MM HG. * Electronic signature of SUSIE Pastor on 02/16/2025 at 07:59 PM EST Sign off status: Pending * Provider: SUSIE Collins Date: 0 12/24/2024 Generated for Enedelia vaz/Elvis/Jaylen on: 1 04/18/2024 07:59 PM EST History and Physical Notes * HPI (History of Present Illness) Category Sub-Category Detail Notes Category Not es ENT/respiratory sore throat ear pain Short of Breath Chest Pain cough greenish yellow sput um production Fever headache right sided chest congestion nasal congestion dizziness off balance body aches aching all over ear stopped up ringing in ear Gastroenterology Vomiting Diarrhea watery Nausea with food, without f ood Examination Category Sub-Category Detail Notes Category Not es ENT/Respiratory Oral cavity : erythema without exudate on pharynx Sinuses : tender maxillary sin uses bilaterally Ears: auditory canals norm al bilaterally, TM's WNL Neck : no cervical lymphade nopathy Heart : RRR, normal S1 S2, n o murmurs Lungs: clear to auscultatio n bilaterally General Appearance: NAD Nose : turbinates red, lesvia ested
[2025-02-16 00:20] LABS: Coronavirus 19, PCR Not Detected (NotDetected); Influenza A, PCR Not Detected (NotDetected); Influenza B, PCR Not Detected (NotDetected)
--- OUTSIDE RECORDS SUMMARY | 2025-02-16 20:00 | XMS_ITS | Patient Health Record ---
Author Organization [facility] Address [address] [id number] Care Team Providers Care Boat Hoist Operator Name Role Phone Zack Garcia Primary Care Provider Vicky Christian Unavailable [phone] Deejay Rimma Unavailable [phone] Allergies Allergen (clinical drug ingredient) Drug/Non Drug [...] 02:50:05 PM Interpretation:Negative Performing Lab: Notes/Report: Negative CT Scan : Abdomen & Pelvis w & w/o contrast Reviewed date:09/12/2024 09:29:02 AM Interpretation: Performing Lab: Notes/Report: CBC Fingerstick (in house) Reviewed date:12/26/2024 12:12:30 [...] - 38 plat 174 100 - 400 Covid test (in house) Reviewed date:12/22/2024 06:36:31 PM Interpretation:Negative Performing Lab: Notes/Report: Negative Result: neg CBC Fingerstick (in house) Reviewed date:12/22/2024 [...] - 38 plat 159 100 - 400 Influenza Screen (in house) Reviewed date:12/22/2024 06:36:10 PM Interpretation:Negative Performing Lab: Notes/Report: Negative results neg Covid test (in house) Reviewed date:05/26/2024 06:53:27 PM Interpretation:neg Performing Lab: Notes/Report: neg Result: neg CBC Fingerstick (in house) Reviewed date:05/26/2024 [...] - 38 plat 215 100 - 400 Rapid Strep- Inhouse Reviewed date:05/26/2024 06:54:01 PM Interpretation:neg Performing Lab: Notes/Report: neg strep test neg Influenza Screen (in house) Reviewed date:05/26/2024 06:53:41 PM Interpretation:neg Performing Lab: Notes/Report: neg results neg Urinalysis - Inhouse Reviewed date:04/23/2024 03:14:37 PM [...] 10:06:54 AM Interpretation:unremarkable Performing Lab: Notes/Report: unremarkable CBC Fingerstick (in house) Reviewed date:02/16/2025 12:07:46 PM Interpretation: Performing Lab: Notes/Report: wbc 18.5 3.5 - 10 lym 17.0 15 - 50 mid 4.6 2 - 15 gran 78.4 35 - 80 rbc 5.51 3.5 - 5.5 hgb 16.4 11.5 - 16.5 hct 48.5 35 - 55 mcv 88.0 75 - 100 mch 29.8 25 - 35 mchc 33.9 31 - 38 plat 150 100 - 400 Medications Medication SIG (Take, Route, Frequency, Duration) Notes Start Date End Date Status Medrol 4 MG as directed orally d aily; Duration: 6 days 02/16/2025 Active Pantoprazole Sodium 40 MG 1 tablet Orall y Once a day Active Benzonatate 200 MG 1 capsule as needed Orally Three times a day As needed Active Albuterol Sulfate HFA 108 (90 Base) MCG/ACT 1 puff as needed Inhalation every 4 hrs Active Cefuroxime Axetil 500 MG 1 tablet Orally twice a day; Duration: 7 days 02/16/2025 Active Promethazine-DM 15-6.25 MG/5ML 5 mL as needed Orally every 6 hrs As needed 02/16/2025 Active Immunizations Vaccine Route Administration Date Status Comme nts xGardasil IM Intramuscular 11/06/2014 Administered Varivax Unknown 02/13/2003 Administered Varivax SC Subcutaneous 02/01/2005 Administered Tetanus Tdap-Adacel (over 7yrs) IM Intramuscular 11/06/2014 Administered Tetanus Dtap-Daptacel (under 7yrs) IM Intramuscular 02/09/2006 Administered MMR SC Subcutaneous 02/09/2006 Administered MMR Unknown 05/27/2003 Administered Menactra IM Intramuscular 11/06/2014 Administered Menactra Unknown 04/17/2019 Administered IPV IM Intramuscular 02/09/2006 Administered HEPB VACC PED/ADOL DOSE IM Unknown 2002 Administe red HEPB VACC PED/ADOL DOSE IM Unknown 2002 Administe red HEPB VACC PED/ADOL DOSE IM Unknown 2002 Administe red Hepatitis A (adult) IM Intramuscular 10/29/2017 Administer ed Hep A- Pediatric IM Intramuscular 11/06/2014 Administered Gardasil 9 IM Intramuscular 10/29/2017 Administered Fluzone Quad (6months&older) IM Intramuscular 03/24/2015 Administered Fluzone Quad (6months&older) IM Intramuscular 01/20/2016 Administered Fluzone Quad (6months&older) IM Intramuscular 04/25/2018 Administered Fluzone Quad (6months&older) IM Intramuscular 02/14/2019 Administered Fluzone Quad (6months&older) Unknown 01/28/2020 Administered Fluzone PF Quad (6-35 months) Unknown 04/25/2018 Administered COVID 19 Moderna Unknown 08/06/2020 Administered COVID 19 Moderna Unknown 08/08/2021 Administered Problems Problem Type SNOMED Code ICD Code Onset Dates Problem Status W/U Status Risk Notes Problem Gastritis (7803072) Gastritis (K29.70) Active c onfirmed Problem Fatty liver (926509768) Fatty liver (K76.0) Active confirmed Problem Gastroesophageal reflux disease without esophagitis (473082164) Gastroesophageal reflux disease without esophagitis (K21.9) Active confirmed Problem Gastric ulcer without hemorrhage, without perforation AND without obstruction (89605150) Gastric ulcer without hemorrhage or perforation, unspecified chronicity (K25.9) Active confirmed Problem Seasonal allergic rhinitis (777755314) Seasonal allergic rhinitis, unspecified trigger (J30.2) Active confirmed Problem Mild intermittent asthma (744806711) Mild intermittent allergic asthma without complication (J45.20) Active confirmed Vital Signs Heart Rate 91 /min 02/16/2025 Blood pressure diastolic 70 mm Hg 02/16/2025 Height 70 in 02/16/2025 Blood pressure systolic 122 mm Hg 02/16/2025 Weight 200 lbs 02/16/2025 BMI 28.69 kg/m2 02/16/2025 Encounters Encounter Location Date Provider Diagnosis [facility] [address] [place], [place] [id number] 02/20/2024 Rimma Crowdy Dysuria R30.0 [facility] [address] [place], [place] [id number] 04/23/2024 Rimma Crowdy Right groin pain R10 .31 [facility] [address] [place], [place] [id number] 05/07/2024 Rimma Crowdy Right groin pain R10 .31 [facility] [address] [place], [place] [id number] 05/26/2024 Vicky Christian Pharyngitis J02.9 [facility] [address] [place], [place] [id number] 07/25/2024 Rimma Crowdy Inguinal adenopathy R59.0 [facility] [address] [place], [place] [id number] 12/22/2024 Vicky Christian Acute upper respirat ory infection 465.9 [facility] [address] [place], [place] [id number] 12/24/2024 Rimma Crowdy Acute upper respirat ory infection 465.9 [facility] [address] [place], [place] [id number] 02/16/2025 Vicky Christian Acute bacterial bronchitis J20.9 and Acute rhinosinusitis J01.90 [facility] [address] [place], [place] [id number] 05/05/2024 Rimma Crowdy [facility] [address] [place], [place] [id number] 05/12/2024 Rimma Crowdy [facility] [address] [place], [place] [id number] 07/29/2024 Rimma Crowdy [facility] [address] [place], [place] [id number] 09/12/2024 Rimma Crowdy Assessments Encounter Date Diagnosis (ICD Code) Assessment Notes Treatment Notes Treatment Clinical Notes Section Notes 02/20/2024 Dysuria (ICD-10 - R30.0) Will screen for STI's. 04/23/2024 Right groin pain (ICD-10 - R10.31) Likely an inguinal hernia. Discussed with Dr. Kidd and will get a right inguinal U/S as well as a testicular ultrasound. 05/07/2024 Right groin pain (ICD-10 - R10.31) [...] CT and make referral to general surgery. 05/26/2024 Pharyngitis (ICD-10 - J02.9) gargles q2h while awake with hot salt water, fluids, rest, supportive measures for fever/symptom relief 07/25/2024 Inguinal adenopathy (ICD-10 - R59.0) Patient will need to go back and see Dr. Swanson to see what the next step will be with the inguinal lymph nodes. 12/22/2024 Acute upper respiratory infection (ICD-10 - 465.9) no smoking fluids, rest, supportive measures for fever/symptom relief 12/24/2024 Acute upper respiratory infection (ICD-10 - 465.9) 02/16/2025 Acute bacterial bronchitis (ICD-10 - J20.9) no smoking fluids, rest, supportive measures for fever/symptom relief gargles q2h while awake with hot salt water; + rhino virus in [facility] yesterday; today with elevated WBC and will start ABX 02/16/2025 Acute rhinosinusitis (ICD-10 - J01.90) will continue with RX from [facility]- [facility] DM as well 02/16/2025 Other Flu and COVID TESTS WERE NEG AT [facility] 02/15/2025 Plan Of Treatment No Information Insurance Providers Payer Name Payer Address Payer Phone Subscriber Number Group Number Insured Name Patient Relationship to Insured Coverage Start Date Coverage End Date [employer] [facility] [id number] [place], [place] [id number] RONALDO BENITEZ Self - patient is the insured Medical (General) History Medical History History ICD Code Heart Murmur Ear Tubes Optical Neuroplasia Surgical History Surgery Date(Month/Year) Adenoidectomy 07/19/2005 Ear Tubes Tonsillectomy Appendectomy, [facility] 05/04/2017 EGD 09/2023 cholecystectomy 10/2023 Hospitalization History Reason Date(Month/Year) Cut Both Hands- [facility] ER 11/08/2009
--- OUTSIDE RECORDS SUMMARY | 2025-02-16 20:01 | XMS_ITS | Encounter Summary ---
Author Organization Healthcare Address [address] [place] [address] Care Team Providers Care Front Office Assistant Name Role Phone Chano Kidd MD Primary Care Provider [phone] Encounter Details Date Type Department Care Team (Late st Contact Info) Description 11/19/2024 Telephone [facility] [address], [address] [place] [address] Salomón Escoto MD [address] [place] [address] Social History Tobacco Use Types [...] unknown date Send To: Best contact number: [phone] (home) Optimal time of day to reach caller: ANYTIME Additional comments/information from caller: None Note: Please do not reply to this message. Follow-up communication and further actions as a result of this message need to be communicated with the patient directly, if the patient is not active onMyChart. If the patient is active on MyChart, they will receive notification of the communication/outcome via [employer]. documented in this encounter Plan of Treatment [...] documented as of this encounter Care Teams Front Office Assistant Relationship Specialty Start Date End Date Chano Kidd MD [address] [place] [address] PCP - General 08/27/20 documented as of this encounter
--- OUTSIDE RECORDS SUMMARY | 2025-02-16 20:01 | XMS_ITS | Clinical Summary ---
Author Organization [facility] Address [address] [place] [address] Care Team Providers Care Home Health Care Social Worker Name Role Phone Chano Kidd MD Primary Care Provider [phone] Allergies Active Allergy Reactions Criticality Noted Date [...] Visit Medical Office Building Urology [address] [facility], [address] [place] [address] Salomón Escoto MD Dysuria (Primary Dx) 11/19/2024 Telephone [facility] [address], [address] [place] [address] Salomón Escoto MD 11/19/2024 Travel from Last 3 Months Family History [...] [facility]-HIV Screening 2002 [facility]-Hepatitis C Screening 2002 [facility]-Infant/Child/Adol SDOH Screenings 2002 [facility]-IPV Vaccines (2 of 3 - 4-dose series) 03/09/2006 02/09/2006, 2002, 2002, Additional history exists [facility]- SDOH Screenings 02/08/2020 [facility]-Adult SDOH Screenings 02/08/2020 [facility]-Pneumococcal Vaccine: Pediatrics (0 to 5 Years) and At-Risk Patients (6 to 49 Years) (1 of 2 - PCV) 2021 [facility]-DTaP,Tdap,and Td Vaccines (7 - Td or Tdap) 11/06/2024 11/06/2014, 02/09/2006, 08/12/2003, Additional history exists [id number] Vaccine (3 - 2024- season) 2024 08/08/2021, [...] URINALYSIS DIPSTICK Routine 11/19/2024 9:50 AM EDT from Last 3 Months Results * CYSTO- UROLOGY (11/19/2024 9:39 PM EDT) Narrative Salomón Escoto MD - 11/19/2024 9:39 PM EDT Salomón Escoto MD 11/20/2024 7:45 PM Cysto- Urology Date/Time: 11/19/2024 9:39 PM Performed by: Surjit Alfaro MD Authorized by: Salomón Escoto MD Procedure discussed: discussed risks, benefits and alternatives Green Chainer present: yes Timeout: timeout called immediately prior to procedure Prep: patient was prepped and draped in usual sterile fashion Prep type: Betadine Procedure Details Cystoscope type: flexible Cystoscopy route: transurethral Cystoscopy location: resighini bladder Urethra Urethra: normal Bladder Bladder comment: [...] Urine Color Yellow 11/19/2024 9:51 AM EDT [facility] Urine Clarity Clear 11/19/2024 9:51 AM EDT [facility] Urine Glucose Negative Negative mg/dL 11/19/2024 9:51 AM EDT [facility] Urine Bilirubin Negative Negative mg/dL 11/19/2024 9:51 AM EDT [facility] Urine Ketones 40(A) Negative mg/dL 11/19/2024 9:51 AM EDT [facility] Urine Specific [place] 1.025 1.005 - 1.030 11/19/2024 9:51 AM EDT [facility] Urine Blood Negative Negative 11/19/2024 9:51 AM EDT [facility] PO[facility] pH, Urine 7.0 5.0 - [...] ST DOCKED DEVICE UNSOLICITED RESULTS Final Result [facility] [address] [place] from Last 3 Months Insurance [facility] MEDICAID Care Teams Home Health Care Social Worker Relationship Specialty Start Date End Date Chano Kidd MD [address] [place] [address] PCP - General 08/27/20
== END 2025-02-15 23:59 | disposition home or self-care (01) ==
LOC: LAB.DROPOF 02-16 19:58
PROVIDERS: PCP Family Medicine; Visit Provider Student in an Organized Health Care Education/Training Program
DX: J06.9 Acute upper respiratory infection, unspecified (principal)
CPT/HCPCS: 87631